=== PATIENT | male | born 1970 | race Caucasian/White ===

== ENCOUNTER 2017-10-27 02:00 | Inpatient (IN) | payer OTHER, SELFPAY ==
[2017-10-27 02:05] VITALS: BMI 29.9
[2017-10-27 02:50] VITALS: BP 129/73; PULSE 78; RESP 18; TEMP 36.4; O2SAT 98
--- NOTE | 2017-10-27 03:17 | HP.PCM_ITS ---
Problem List (1) Pancreatitis Status: Acute (2) S/P tonsillectomy and adenoidectomy Status: Acute Comment: 1970 (3) Sleep apnea Status: Acute (4) Hypertension Status: Chronic History of Present Illness Date of Admission: 10/27/17 Chief Complaint: Pancreatitis The patient is a 47 year old male w/ h/o HTN, lipidemia and JAS admitted for pancreatitis. Pt felt sore after work on . Pain has begun getting worse for the next several days. Nothing made it better or worse. Pain was in the epigastric area. Pain was sharp and occasional dull-aching. Pain would radiate to the back. Pain was severe and constant. 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 He went home and the pain showed no sign of improvement despite he trying to sleep and tried gaviscon. He was transferred to [facility] for pancreatitis. Past Medical History Past Medical History (Chronic Problems): Chronic Problems (Last Updated 09/25/17 @ 14:09 by Melody Walsh) Hypertension (Chronic) Allergies No Known Allergies Allergy (Verified 09/25/17 14:14) Home Medications: Ambulatory Orders Medication Instructions Recorded cetirizine 5 mg-pseudoephedrine ER 1 tab PO DAILY 09/25/17 120 mg tablet,extended release,12hr multivitamin tablet 1 tab PO QAM 09/25/17 potassium chloride ER 20 mEq 20 meq PO DAILY 09/25/17 tablet,extended release ascorbic acid (vitamin C) ER 1,000 1,000 mg PO DAILY 09/26/17 mg tablet,extended release cholecalciferol (vitamin D3) 2,000 2,000 unit PO DAILY 09/26/17 unit capsule fenofibrate nanocrystallized 145 145 mg PO DAILY 09/26/17 mg tablet flaxseed oil 1,000 mg capsule 1,000 mg PO BID 09/26/17 fluticasone 50 mcg/actuation nasal 1 spray INTRANASAL PRN PRN 09/26/17 spray,suspension hydrocortisone 2.5 % rectal cream % TOPICAL PRN PRN 09/26/17 with applicator lisinopril 20 mg tablet 20 mg PO DAILY 09/26/17 metoprolol succinate ER 100 mg 100 mg PO BID 09/26/17 tablet,extended release 24 hr Surgical History: adenoidectomy, tonsillectomy Psychiatric History: No pertinent psych hx Smoking Status: Former smoker Alcohol: None Drugs: None Review of Systems Constitutional: Denies: Chills, Fever, Weight Change HEENT: Denies: Head Aches, Sinus Congestion, Sinus Drainage Cardiovascular: Denies: Chest Pain, Palpitations Respiratory: Denies: Cough, Shortness of breath at rest, Sputum production Gastrointestinal: Reports: Abdominal Pain. Denies: Nausea, Vomiting Genitourinary: Denies: Dysuria Musculoskeletal: Denies: Joint Pain, Joint Tenderness Skin: Denies: Rash, Wounds Neurological: Denies: Numbness, Tingling, Focal weakness Psychiatric: Denies: Anxiety, Depression, Homicidal Ideations, Suicidal Ideations Hematologic/ Lymphatic: Denies: Easy Bruising, Easy Bleeding VTE Information - Inpt Only VTE Present on Admission: No VTE Mechan Device Prophylaxis: SCD's VTE Pharm Prophylaxis ordered?: Yes Patient Problems: Active and Suspected Problems (Last Updated 09/25/17 @ 14:09 by Melody Walsh ) Pancreatitis (Acute) - Physical Exam General: Alert, Oriented x3, Cooperative HEENT: Atraumatic, PERRLA, EOMI, Normocephalic Neck: Supple, No JVD, Negative Carotid Bruits Lungs: Clear to auscultation, Normal air movement Cardiovascular: Regular rate, No murmurs Abdomen: Bowel Sounds Present, Soft, Non Tender Extremities: No edema, Capillary Refill Less than 3 Seconds Skin: No rashes, No breakdown Musculoskeletal: No Tenderness to Palpation of Joints or Extremities Neurological: Cranial nerves II-XII grossly intact Psych/Mental Status: Normal Affect, Appropriate Vital Signs Temp Pulse Resp BP Pulse Ox 97.5 F L 78 18 129/73 H 98 10/27/17 02:50 10/27/17 02:50 10/27/17 02:50 10/27/17 02:50 10/27/17 02:50 Oxygen Delivery Method Room Air Weight: 100.3 kg Body Mass Index (BMI) 29.9 Assessment/Plan Active and Suspected Problems (Last Updated 09/25/17 @ 14:09 by Melody Walsh ) Pancreatitis (Acute) 47 year old male w/ h/o HTN, lipidemia and JAS admitted for pancreatitis. 1) Pancreatitis: CT disclosed acute pancreatitis. Lipase 4K. Will hydrate. Pain control with IV morphine. Serial lipase until trending down. Will get FLP. Will also get EtOH level. NPO. 2) Mild NITESH: Most likely azotemia. Cr 1.26 Hydration and will consider further workup if no improvement. 3) Chronic issues: Lipidemia, JAS and HTN: Resume home meds. 4) Prophylaxis: SCD / heparin
[2017-10-27] MEDS: 0.9% NaCl Peripheral Flush Adult/Peds IV (03:51)
[2017-10-27] MEDS: Ondansetron 4 MG/2 ML Vial IV (03:51)
[2017-10-27] MEDS: 0.9% Normal Saline 1,000 ML 999 ML IV (03:55)
[2017-10-27 04:09] LABS: Bacteria 0 SEEN /hpf (None Seen); Mucous, Urine 0 SEEN /hpf (<or=2+); Red Blood Cells-Urine 0 SEEN /hpf (0-5); White Blood Cells 0 SEEN /hpf (0-5)
[2017-10-27 04:12] LABS: Absolute Lymphocyte Count 1.58 X10^3/ul (0.83-4.51); Absolute Neutrophil Count 9.8 X10^3/uL (2.0-7.7); Basophil# 0.01 X10^3/uL; Basophil% 0.1 % (0-1); Eosinophil# 0.04 X10^3/uL; Eosinophils% 0.3 % (0-5); Hematocrit 41.8 % (40-54); Lymphocyte # 1.58 X10^3/ul (4.0); Lymphocyte % 13.1 % (19-41); Mean Corp Hgb Conc 33.5 g/gl (32-36); Mean Corpuscular Hgb 28.3 pg (27.0-32.0); Mean Corpuscular Volume 84.6 fL (80-94); Mean Platelet Vol. 8.9 fl (6.2-12.0); Monocyte# 0.62 X10^3/uL; Monocyte% 5.1 % (0-10); Neutrophil # 9.81 X10^3/uL (2.7-7.7); Neutrophil % 81.3 % (47-70); POSITIVE COUNT NO; POSITIVE DIFFERENTIAL NO; POSITIVE MORPHOLOGY NO; Platelet Count 267 K/mm3 (150-450); RBC Distribution Width SD 39.7 fl (35.1-43.9); Red Blood Count 4.94 M/mm3 (4.6-6.2); White Blood Count 12.1 K/mm3 (4.4-11.0)
[2017-10-27 04:15] LABS: Color, Urine Yellow (Yellow); Glucose, Dipstick Normal (Normal); Ketone-Dipstick 5 mg/dl (Negative); Leukocyte Esterase-Dipstick Negative /ul (Negative); Nitrite-Dipstick Negative (Negative); Occult Blood-Urine Negative /ul (Negative); Protein-Dipstick Negative (Negative); Urine Bilirubin Dipstick Negative (Negative); Urine Clarity Clear (Clear); Urine Urobilinogen Normal (Normal)
[2017-10-27 04:21] LABS: Squamous Epithelial Cells - UA 0-5 SEEN /hpf (0-5)
[2017-10-27 04:29] LABS: AST(SGOT) 26 U/L (15-37); Alanine Aminotransfer ALT/SGPT 43 U/L (16-61); Albumin, Serum 3.6 g/dL (3.2-5.0); Alkaline Phosphatase 100 U/L (45-117); Anion Gap 9 (5-15); BUN 13 mg/dL (7-18); BUN/Creat Ratio 10.8 RATIO (10-20); Calcium,Total 8.3 mg/dL (8.5-10.1); Chloride 103 mmol/L (98-107); Cholesterol 152 mg/dL (200); EST Glomerular Filtration Rate 69 mL/min (>60); Est Glom Filt Rate - Afr Amer 83 mL/min (>60); Estimated Creatinine Clearance 82.63 ml/min; Globulin 3.7 g/dL (2.2-4.2); Glucose 131 mg/dL (74-106); High Density Lipoprotein 36 mg/dL; Potassium 4.1 mmol/L (3.5-5.1); Protein, Total 7.3 g/dL (6.4-8.2); Sodium Level 137 mmol/L (136-145); Triglycerides 156 mg/dL; Very Low Density Lipoprotein 31 mg/dL (5-40)
[2017-10-27 04:33] LABS: Amphetamine Urine VISTA NEGATIVE (<1000 ng/mL); Barbiturate Urine VISTA NEGATIVE (< 200 ng/mL); Benzodiazepine Urine VISTA NEGATIVE (< 200 ng/mL); Cocaine Urine VISTA NEGATIVE (< 300 ng/mL); Ecstacy Urine VISTA NEGATIVE (< 500 ng/mL); Lipase 2193 U/L (73-393); Methadone Urine VISTA NEGATIVE (< 300 ng/mL); PCP Urine VISTA NEGATIVE (< 25 ng/mL); THC Urine VISTA NEGATIVE (< 50 ng/mL); Vista UDS pH Range 6
[2017-10-27] MEDS: Heparin Injection (Vial) 5,000 UNIT/ML VIAL 5000 UNIT SC ×3 (05:07→21:42)
[2017-10-27] MEDS: 0.9% Normal Saline 1,000 ML 150 ML IV ×3 (05:08→18:00)
[2017-10-27 08:31] VITALS: BP 114/70; PULSE 85; RESP 18; TEMP 36.4; O2SAT 98
--- NOTE | 2017-10-27 10:17 | CASEMGMT ---
Face to Face with patient for initial transition planning/care coordination assessment. ALDO SMITH introduced self and role at [facility], pt voices understanding and consents to assessment at this time. Pt is sitting up in bed in no distress at this time. Pt is A/O x4 at this time and answers all questions appropriately at this time. Care providers, pharmacy, and demographics verified. See attached link. Pt voices no further concerns/needs at this time. Advised pt to ask for CM if any further questions/concerns/needs arise, voices understanding. PLAN: [place] ALDO SMITH
--- NOTE | 2017-10-27 13:31 | PCM.PN.HOSP ---
Patient Problems: Active and Suspected Problems (Last Updated 09/25/17 @ 14:09 by Melody Walsh) Pancreatitis (Acute) Subjective: Epigastric abdominal pain but better. Patient does note that he has had some issues in the past regards to belly pain which she is chalked up to being reflux as he does have known reflux. But has never had no overt pancreatic attack like he is having now. Vitals/I&O's: Vital Signs Temp Pulse Resp BP Pulse Ox 36.4 C L 85 18 114/70 98 10/27/17 08:31 10/27/17 08:31 10/27/17 08:31 10/27/17 08:31 10/27/17 08:31 Oxygen Delivery Method Room Air Weight: 100.3 kg Body Mass Index (BMI) 29.9 Intake and Output for Last 24 Hours 10/25/17 10/26/17 10/27/17 23:59 23:59 23:59 Intake Total 2130 Balance 2130 General: Alert, Cooperative, No apparent distress HEENT: Atraumatic, Normocephalic Neck: No Nodes, Thyroid Normal Size and Texture Lungs: Clear to auscultation, Normal air movement, No rhonchi, No wheeze Cardiovascular: Regular rate, Regular Rhythm, Normal S1, Normal S2 Abdomen: Bowel Sounds Present, Soft, Non-Distended, No Hepato-splenomegaly, - - Epigastric tenderness. Extremities: No edema, No Calf Tenderness Skin: No rashes, No breakdown Psych/Mental Status: Normal Affect, Appropriate Laboratory Results 10/27/17 04:00: WBC 12.1 H, RBC 4.94, Hgb 14.0, Hct 41.8, MCV 84.6, MCH 28.3, MCHC 33.5, RDW 13.0, RDW Differential 39.7, Plt Count 267, MPV 8.9, Immature Gran % (Auto) 0.100, Neut % (Auto) 81.3 H, Lymph % (Auto) 13.1 L, [place] % (Auto) 5.1, Eos % (Auto) 0.3, Baso % (Auto) 0.1, Absolute Neuts (auto) 9.8 H, Absolute Lymphs (auto) 1.58, Total Counted Not Reportable 10/27/17 04:00: Sodium 137, Potassium 4.1, Chloride 103, Carbon Dioxide 25.0, Anion Gap 9, BUN 13, Creatinine 1.20, Estim Creat Clear Calc 82.63, Est GFR (MDRD) Af Amer 83, Est GFR (MDRD) Non-Af 69, BUN/Creatinine Ratio 10.8, Glucose 131 H, Calcium 8.3 L, Total Bilirubin 0.40, AST 26, ALT 43, Alkaline Phosphatase 100, Total Protein 7.3, Albumin 3.6, Globulin 3.7, Albumin/Globulin Ratio 1.0, Triglycerides 156, Cholesterol 152, LDL Cholesterol 85, VLDL Cholesterol 31, HDL Cholesterol 36 L 10/27/17 04:00: Ethyl Alcohol 4.0 10/27/17 04:00: Urine Opiates Screen POSITIVE H, Urine Methadone Screen NEGATIVE, Ur Barbiturates Screen NEGATIVE, Ur Phencyclidine Scrn NEGATIVE, Ur Amphetamines Screen NEGATIVE, U Methamphetamin-MDMA NEGATIVE, U Benzodiazepines Scrn NEGATIVE, Urine Cocaine Screen NEGATIVE, U Cannabinoids Screen NEGATIVE, Ur Drug Screen Comment 10/27/17 04:00: Lipase 2193 H 10/27/17 04:00: Urine Color Yellow, Urine Clarity Clear, Urine pH 6.0, Ur Specific [place] 1.010, Urine Protein Negative, Urine Glucose (UA) Normal, Urine Ketones 5 H, Urine Occult Blood Negative, Urine Nitrite Negative, Urine Bilirubin Negative, Urine Urobilinogen Normal, Ur Leukocyte Esterase Negative, Urine RBC 0 SEEN, Urine WBC 0 SEEN, Ur Squamous Epith Cells 0-5 SEEN, Urine Bacteria 0 SEEN, Urine Mucus 0 SEEN Current Medications Heparin Sodium (Porcine) (Heparin Na) 5,000 unit SC Q8 [facility] Last Admin: 10/27/17 05:07 Dose: 5,000 u Sodium Chloride () 1,000 mls @ 150 mls/hr IV .Q6H40M [facility] Last Admin: 10/27/17 11:17 Dose: 150 mls/hr Magnesium Hydroxide (Milk Of Magnesia) 30 ml PO DAILY PRN PRN PRN Reason: Constipation Morphine Sulfate () 4 mg IV Q4H PRN PRN PRN Reason: SEVERE PAIN (6-10/10) Ondansetron HCl (Zofran) 4 mg IV Q6H PRN PRN PRN Reason: NAUSEA Last Admin: 10/27/17 03:51 Dose: 4 mg Sodium Chloride () 5 - 30 ml IV UD PRN PRN Reason: SALINE FLUSH Last Admin: 10/27/17 03:51 Dose: 20 ml Medical Necessity - Tobacco Use Smoking Status: Former smoker Assessment/Plan Active and Suspected Problems (Last Updated 09/25/17 @ 14:09 by Melody Walsh) Pancreatitis (Acute) 1. Acute pancreatitis Unclear etiology and most unclear if this is his first episode or not but certainly his worst. Patient has had some abdominal pain previously that may very well been there with reflux or dyspepsia Patient had an ultrasound in May that showed fatty liver. Alcohol level negative and patient denies alcohol use. Continue with IV fluids and pain control Advance diet to clears for now. 2. DVT prophylaxis with subcu heparin. Code Visit Procedures: Other Procedure - See Report - Non billable rounding. Please bill Dr. Mcmillan for 223 for his H+P.
--- NOTE | 2017-10-27 13:37 | PN_ITS ---
Patient Problems: Active and Suspected Problems (Last Updated 09/25/17 @ 14:09 by Melody Walsh ) Pancreatitis (Acute) Subjective: Epigastric abdominal pain but better. Patient does note that he has had some issues in the past regards to belly pain which she is chalked up to being reflux as he does have known reflux. But has never had no overt pancreatic attack like he is having now. Vitals/I&O's: Vital Signs Temp Pulse Resp BP Pulse Ox 36.4 C L 85 18 114/70 98 10/27/17 08:31 10/27/17 08:31 10/27/17 08:31 10/27/17 08:31 10/27/17 08:31 Oxygen Delivery Method Room Air Weight: 100.3 kg Body Mass Index (BMI) 29.9 Intake and Output for Last 24 Hours 10/25/17 10/26/17 10/27/17 23:59 23:59 23:59 Intake Total 2130 Balance 2130 General: Alert, Cooperative, No apparent distress HEENT: Atraumatic, Normocephalic Neck: No Nodes, Thyroid Normal Size and Texture Lungs: Clear to auscultation, Normal air movement, No rhonchi, No wheeze Cardiovascular: Regular rate, Regular Rhythm, Normal S1, Normal S2 Abdomen: Bowel Sounds Present, Soft, Non-Distended, No Hepato-splenomegaly, - - Epigastric tenderness. Extremities: No edema, No Calf Tenderness Skin: No rashes, No breakdown Psych/Mental Status: Normal Affect, Appropriate Laboratory Results 10/27/17 04:00: WBC 12.1 H, RBC 4.94, Hgb 14.0, Hct 41.8, MCV 84.6, MCH 28.3, MCHC 33.5, RDW 13.0, RDW Differential 39.7, Plt Count 267, MPV 8.9, Immature Gran % (Auto) 0.100, Neut % (Auto) 81.3 H, Lymph % (Auto) 13.1 L, [place] % (Auto) 5.1, Eos % (Auto) 0.3, Baso % (Auto) 0.1, Absolute Neuts (auto) 9.8 H, Absolute Lymphs (auto) 1.58, Total Counted Not Reportable 10/27/17 04:00: Sodium 137, Potassium 4.1, Chloride 103, Carbon Dioxide 25.0, Anion Gap 9, BUN 13, Creatinine 1.20, Estim Creat Clear Calc 82.63, Est GFR ( MDRD) Af Amer 83, Est GFR (MDRD) Non-Af 69, BUN/Creatinine Ratio 10.8, Glucose 131 H, Calcium 8.3 L, Total Bilirubin 0.40, AST 26, ALT 43, Alkaline Phosphatase 100, Total Protein 7.3, Albumin 3.6, Globulin 3.7, Albumin/Globulin Ratio 1.0, Triglycerides 156, Cholesterol 152, LDL Cholesterol 85, VLDL Cholesterol 31, HDL Cholesterol 36 L 10/27/17 04:00: Ethyl Alcohol 4.0 10/27/17 04:00: Urine Opiates Screen POSITIVE H, Urine Methadone Screen NEGATIVE , Ur Barbiturates Screen NEGATIVE, Ur Phencyclidine Scrn NEGATIVE, Ur Amphetamines Screen NEGATIVE, U Methamphetamin-MDMA NEGATIVE, U Benzodiazepines Scrn NEGATIVE, Urine Cocaine Screen NEGATIVE, U Cannabinoids Screen NEGATIVE, Ur Drug Screen Comment 10/27/17 04:00: Lipase 2193 H 10/27/17 04:00: Urine Color Yellow, Urine Clarity Clear, Urine pH 6.0, Ur Specific [place] 1.010, Urine Protein Negative, Urine Glucose (UA) Normal, Urine Ketones 5 H, Urine Occult Blood Negative, Urine Nitrite Negative, Urine Bilirubin Negative, Urine Urobilinogen Normal, Ur Leukocyte Esterase Negative, Urine RBC 0 SEEN, Urine WBC 0 SEEN, Ur Squamous Epith Cells 0-5 SEEN, Urine Bacteria 0 SEEN, Urine Mucus 0 SEEN Current Medications Heparin Sodium (Porcine) (Heparin Na) 5,000 unit SC Q8 [facility] Last Admin: 10/27/17 05:07 Dose: 5,000 u Sodium Chloride () 1,000 mls @ 150 mls/hr IV .Q6H40M [facility] Last Admin: 10/27/17 11:17 Dose: 150 mls/hr Magnesium Hydroxide (Milk Of Magnesia) 30 ml PO DAILY PRN PRN PRN Reason: Constipation Morphine Sulfate () 4 mg IV Q4H PRN PRN PRN Reason: SEVERE PAIN (6-10/10) Ondansetron HCl (Zofran) 4 mg IV Q6H PRN PRN PRN Reason: NAUSEA Last Admin: 10/27/17 03:51 Dose: 4 mg Sodium Chloride () 5 - 30 ml IV UD PRN PRN Reason: SALINE FLUSH Last Admin: 10/27/17 03:51 Dose: 20 ml Medical Necessity - Tobacco Use Smoking Status: Former smoker Assessment/Plan Active and Suspected Problems (Last Updated 09/25/17 @ 14:09 by Melody Walsh ) Pancreatitis (Acute) 1. Acute pancreatitis * Unclear etiology and most unclear if this is his first episode or not but certainly his worst. Patient has had some abdominal pain previously that may very well been there with reflux or dyspepsia * Patient had an ultrasound in May that showed fatty liver. * Alcohol level negative and patient denies alcohol use. * Continue with IV fluids and pain control * Advance diet to clears for now. 2. DVT prophylaxis with subcu heparin. Code Visit Procedures: Other Procedure - See Report - Non billable rounding. Please bill Dr. Mcmillan for 223 for his H+P.
[2017-10-27 14:33] VITALS: BP 122/77; PULSE 93; RESP 18; TEMP 36.8; O2SAT 99
[2017-10-27 21:40] VITALS: BP 123/65; PULSE 82; RESP 18; TEMP 36.6; O2SAT 97
[2017-10-28] MEDS: 0.9% Normal Saline 1,000 ML 150 ML IV ×4 (01:02→20:47)
[2017-10-28 04:00] VITALS: BP 130/73; RESP 18; TEMP 37.1; O2SAT 97
[2017-10-28] MEDS: Heparin Injection (Vial) 5,000 UNIT/ML VIAL 5000 UNIT SC ×2 (05:55→14:59)
[2017-10-28 06:23] LABS: Absolute Lymphocyte Count 2.88 X10^3/ul (0.83-4.51); Absolute Neutrophil Count 2.9 X10^3/uL (2.0-7.7); Basophil# 0.04 X10^3/uL; Basophil% 0.6 % (0-1); Eosinophil# 0.22 X10^3/uL; Eosinophils% 3.3 % (0-5); Hematocrit 39.8 % (40-54); Hemoglobin 13.2 g/dl (13.0-16.5); Lymphocyte # 2.88 X10^3/ul (4.0); Lymphocyte % 43.2 % (19-41); Mean Corp Hgb Conc 33.2 g/gl (32-36); Mean Corpuscular Hgb 28.3 pg (27.0-32.0); Mean Corpuscular Volume 85.2 fL (80-94); Monocyte# 0.58 X10^3/uL; Monocyte% 8.7 % (0-10); Neutrophil # 2.94 X10^3/uL (2.7-7.7); Neutrophil % 44.2 % (47-70); Platelet Count 261 K/mm3 (150-450); RBC Distribution Width CV 13.1 % (11.6-14.6); RBC Distribution Width SD 40.3 fl (35.1-43.9); Red Blood Count 4.67 M/mm3 (4.6-6.2); White Blood Count 6.7 K/mm3 (4.4-11.0)
[2017-10-28 06:26] LABS: POSITIVE COUNT NO; POSITIVE DIFFERENTIAL NO; POSITIVE MORPHOLOGY NO
[2017-10-28 06:48] LABS: Anion Gap 9 (5-15); BUN 10 mg/dL (7-18); Calcium,Total 8.6 mg/dL (8.5-10.1); Chloride 108 mmol/L (98-107); Creatinine, Serum 1.11 mg/dL (0.70-1.30); EST Glomerular Filtration Rate 75 mL/min (>60); Est Glom Filt Rate - Afr Amer 91 mL/min (>60); Estimated Creatinine Clearance 89.33 ml/min; Glucose 87 mg/dL (74-106); Lipase 2070 U/L (73-393); Sodium Level 140 mmol/L (136-145)
[2017-10-28 10:00] VITALS: BP 125/64; PULSE 81; RESP 18; TEMP 36.9; O2SAT 98
--- NOTE | 2017-10-28 10:35 | PN_ITS ---
Patient Problems: Active and Suspected Problems (Last Updated 09/25/17 @ 14:09 by Melody Walsh ) Pancreatitis (Acute) Subjective: States that he is doing better but just concerned after talking with some family. Patient mentions now that his maternal grandmother had from pancreatic cancer. He was taken to a friend who is an tissue recovery technician who made mention of an ERCP, to which I did mention to him yesterday as possibility. It has been tolerating the clear liquid diet well so far. Vitals/I&O's: Vital Signs Temp Pulse Resp BP Pulse Ox 37.1 C 82 18 130/73 H 97 10/28/17 04:00 10/27/17 21:40 10/28/17 04:00 10/28/17 04:00 10/28/17 04:00 Oxygen Delivery Method Room Air Weight: 100.3 kg Body Mass Index (BMI) 29.9 Intake and Output for Last 24 Hours 10/26/17 10/27/17 10/28/17 23:59 23:59 23:59 Intake Total 3877 / 3877 2627 / 2627 Balance 3877 / 3877 2627 / 2627 General: Alert, Cooperative, No apparent distress HEENT: Atraumatic, Normocephalic Neck: No Nodes, Thyroid Normal Size and Texture Lungs: Clear to auscultation, Normal air movement, No rhonchi, No wheeze Cardiovascular: Regular rate, Regular Rhythm, Normal S1, Normal S2, No murmurs Abdomen: Bowel Sounds Present, Soft, Non-Distended, No Hepato-splenomegaly, - - Epigastric tenderness Extremities: No edema, No Calf Tenderness Psych/Mental Status: Normal Affect, Appropriate Laboratory Results 10/28/17 05:45: WBC 6.7, RBC 4.67, Hgb 13.2, Hct 39.8 L, MCV 85.2, MCH 28.3, MCHC 33.2, RDW 13.1, RDW Differential 40.3, Plt Count 261, MPV 9.0, Immature Gran % (Auto) 0.000, Neut % (Auto) 44.2 L, Lymph % (Auto) 43.2 H, [place] % (Auto) 8.7, Eos % (Auto) 3.3, Baso % (Auto) 0.6, Absolute Neuts (auto) 2.9, Absolute Lymphs (auto) 2.88, Total Counted Not Reportable 10/28/17 05:45: Sodium 140, Potassium 4.0, Chloride 108 H, Carbon Dioxide 23.0, Anion Gap 9, BUN 10, Creatinine 1.11, Estim Creat Clear Calc 89.33, Est GFR ( MDRD) Af Amer 91, Est GFR (MDRD) Non-Af 75, BUN/Creatinine Ratio 9.0 L, Glucose 87, Calcium 8.6, Lipase 2070 H Current Medications Heparin Sodium (Porcine) (Heparin Na) 5,000 unit SC Q8 [facility] Last Admin: 10/28/17 05:55 Dose: 5,000 u Sodium Chloride () 1,000 mls @ 150 mls/hr IV .Q6H40M [facility] Last Admin: 10/28/17 07:13 Dose: 150 mls/hr Magnesium Hydroxide (Milk Of Magnesia) 30 ml PO DAILY PRN PRN PRN Reason: Constipation Morphine Sulfate () 4 mg IV Q4H PRN PRN PRN Reason: SEVERE PAIN (6-10/10) Ondansetron HCl (Zofran) 4 mg IV Q6H PRN PRN PRN Reason: NAUSEA Last Admin: 10/27/17 03:51 Dose: 4 mg Sodium Chloride () 5 - 30 ml IV UD PRN PRN Reason: SALINE FLUSH Last Admin: 10/27/17 03:51 Dose: 20 ml Medical Necessity - Tobacco Use Smoking Status: Former smoker Assessment/Plan Active and Suspected Problems (Last Updated 09/25/17 @ 14:09 by Melody Walsh ) Pancreatitis (Acute) 1. Acute pancreatitis * Unclear etiology and most unclear if this is his first episode or not but certainly his worst. Patient has had some abdominal pain previously that may very well been there with reflux or dyspepsia * Patient had an ultrasound in May that showed fatty liver. * Alcohol level negative and patient denies alcohol use. * Continue with IV fluids and pain control * Advance diet to full for now. * Check an ultrasound and an MRCP told patient there is no clear indication for an ERCP at this time but will wait on the studies and make a determination if that may be necessary. 2. DVT prophylaxis with subcu heparin. Code Visit Inpatient E&M: 26446 Subs Hosp L2
[2017-10-28 15:24] VITALS: BP 127/63; PULSE 74; RESP 18; TEMP 36.6; O2SAT 98
[2017-10-28 21:32] VITALS: BP 134/86; PULSE 94; RESP 18; TEMP 36.5; O2SAT 95
[2017-10-29 02:00] VITALS: BP 115/69; PULSE 80; RESP 16; TEMP 36.7; O2SAT 97
[2017-10-29] MEDS: 0.9% Normal Saline 1,000 ML 150 ML IV (03:00)
[2017-10-29 06:23] LABS: Anion Gap 9 (5-15); BUN 10 mg/dL (7-18); BUN/Creat Ratio 9.3 RATIO (10-20); Calcium,Total 8.5 mg/dL (8.5-10.1); Chloride 111 mmol/L (98-107); Creatinine, Serum 1.07 mg/dL (0.70-1.30); EST Glomerular Filtration Rate 78 mL/min (>60); Est Glom Filt Rate - Afr Amer 95 mL/min (>60); Estimated Creatinine Clearance 92.67 ml/min; Glucose 82 mg/dL (74-106); Lipase 2173 U/L (73-393); Potassium 3.8 mmol/L (3.5-5.1); Sodium Level 142 mmol/L (136-145)
[2017-10-29 07:40] VITALS: BP 113/75; PULSE 100; RESP 18; TEMP 36.7; O2SAT 96
--- NOTE | 2017-10-29 09:50 | PCM.PN.HOSP ---
Patient Problems: Active and Suspected Problems (Last Updated 09/25/17 @ 14:09 by Melody Walsh) Pancreatitis (Acute) Subjective: Patient with no acute events overnight per self and per nursing report. Patient notes since initial presentation has had no further market epigastric discomfort but does admit that he has had chronic mild dull ache in the right upper quadrant it has been ongoing. He states that he did tolerate clears and eventual. Transition. Patient is currently n.p.o. for imaging studies. Discussed plan of care which will include pending imaging studies possible discharge to home with follow-up with his GI physician for EGD if recurrence versus surgery consult if unremarkable gallbladder findings. Patient denies fevers, chills, nausea, emesis, abdominal pain, chest pain or dyspnea. Objective: Physical Examination: General: awake, alert, oriented x 3 and cooperative, seated upright in bed in no apparent distress. Skin: normal color, turgor, no icterus, cyanosis. HEENT: AT/NC, EOMI, PERRLA, MMM. Lungs: CTA bilaterally, moderate effort, mild decrease BL bases, no rales, ronchi or wheezing. Heart: regular rate and rhythm; no gallop, rub audible. Abdomen: soft, minimal RUQ discomfort w/ deep palpation, no rebound or guarding, normal BS. Extremities: no cyanosis, clubbing, or edema. Neurological: patient awake, alert, oriented x 3; cognitive function intact; pupils equally reactive to light and accomodation; cranial nerves II-XII grossly normal, moving all 4 extremities, no focal deficits, strength preserved. Psychiatric: affect appears normal, no acute evidence of depressive or anxiety feelings. Vitals/I&O's: Vital Signs Temp Pulse Resp BP Pulse Ox 98.1 F 100 18 113/75 96 10/29/17 07:40 10/29/17 07:40 10/29/17 07:40 10/29/17 07:40 10/29/17 07:40 Oxygen Delivery Method Room Air Weight: 221 lb 1.978 oz Body Mass Index (BMI) 29.9 Intake and Output for Last 24 Hours 10/27/17 10/28/17 10/29/17 23:59 23:59 23:59 Intake Total 3877 / 3877 5447 / 5447 1716 / 1716 Balance 3877 / 3877 5447 / 5447 1716 / 1716 Laboratory Results 10/29/17 05:28: Sodium 142, Potassium 3.8, Chloride 111 H, Carbon Dioxide 22.0, Anion Gap 9, BUN 10, Creatinine 1.07, Estim Creat Clear Calc 92.67, Est GFR (MDRD) Af Amer 95, Est GFR (MDRD) Non-Af 78, BUN/Creatinine Ratio 9.3 L, Glucose 82, Calcium 8.5, Lipase 2173 H Current Medications Heparin Sodium (Porcine) (Heparin Na) 5,000 unit SC Q8 [facility] Last Admin: 10/29/17 05:41 Dose: Not Given Sodium Chloride () 1,000 mls @ 150 mls/hr IV .Q6H40M [facility] Last Admin: 10/29/17 03:00 Dose: 150 mls/hr Magnesium Hydroxide (Milk Of Magnesia) 30 ml PO DAILY PRN PRN PRN Reason: Constipation Morphine Sulfate () 4 mg IV Q4H PRN PRN PRN Reason: SEVERE PAIN (6-10/10) Ondansetron HCl (Zofran) 4 mg IV Q6H PRN PRN PRN Reason: NAUSEA Last Admin: 10/27/17 03:51 Dose: 4 mg Sodium Chloride () 5 - 30 ml IV UD PRN PRN Reason: SALINE FLUSH Last Admin: 10/27/17 03:51 Dose: 20 ml Medical Necessity - Tobacco Use Smoking Status: Former smoker Tobacco Use: Non-smoker Assessment/Plan Active and Suspected Problems (Last Updated 09/25/17 @ 14:09 by Melody Walsh) Pancreatitis (Acute) The patient is a 47 y/o M w/ PMHx: Obesity, HTN, JAS, HLD who presents to the [facility] ED on 10/27/17 with history of onset epigastric discomfort starting which progressively worsened noted to be sharp and occasionally dull in nature with radiation to the back. (1) Acute pancreatitis w/ abdominal pain, N/V: Admission CBC w/ WBC 12.1 with L shift, improved, CMP unremarkable, Lipase 2193-->trending 2069-->10/29/17 2173. Will maintain on IVFs, NPO pending GBUS but prior had successfully been transitioned to FULLS, PPI, IV/po pain control, trend lipase, CMP. Pending GB US, MRCP, FLP not marked appearing and EtOH level negative and patient denies consumption risk as etiology for pancreatitis. If remarkable GB findings will obtain Surgery consultation, if unremarkable will restart diet and plan discharge to home with GI Dr. Campos follow-up outpatient to consider EGD for alternate etiology for pancreatitis. (2) Acute kidney injury, RULED OUT: Admission BUN/Cr 13/1.20, baseline noted 1.0-1.2, stable, 10/29/17 BUN/Cr 10/1.07, trend. (3) Hypertension: Continue home regimen including lisinopril, metoprolol, PRN hydralazine. (4) Obesity: Weight loss and lifestyle changes encouraged. (5) Hyperlipidemia: Holding fenofibrate, restart upon discharge, FLP not marked appearing. (6) DVT Prophylaxis: SCDs, heparin. Code Visit Inpatient E&M: 73005 Subs Hosp L2
--- NOTE | 2017-10-29 09:59 | PN_ITS ---
Patient Problems: Active and Suspected Problems (Last Updated 09/25/17 @ 14:09 by Melody Walsh ) Pancreatitis (Acute) Subjective: Patient with no acute events overnight per self and per nursing report. Patient notes since initial presentation has had no further market epigastric discomfort but does admit that he has had chronic mild dull ache in the right upper quadrant it has been ongoing. He states that he did tolerate clears and eventual. Transition. Patient is currently n.p.o. for imaging studies. Discussed plan of care which will include pending imaging studies possible discharge to home with follow-up with his GI physician for EGD if recurrence versus surgery consult if unremarkable gallbladder findings. Patient denies fevers, chills, nausea, emesis, abdominal pain, chest pain or dyspnea. Objective: Physical Examination: General: awake, alert, oriented x 3 and cooperative, seated upright in bed in no apparent distress. Skin: normal color, turgor, no icterus, cyanosis. HEENT: AT/NC, EOMI, PERRLA, MMM. Lungs: CTA bilaterally, moderate effort, mild decrease BL bases, no rales, ronchi or wheezing. Heart: regular rate and rhythm; no gallop, rub audible. Abdomen: soft, minimal RUQ discomfort w/ deep palpation, no rebound or guarding , normal BS. Extremities: no cyanosis, clubbing, or edema. Neurological: patient awake, alert, oriented x 3; cognitive function intact; pupils equally reactive to light and accomodation; cranial nerves II-XII grossly normal, moving all 4 extremities, no focal deficits, strength preserved. Psychiatric: affect appears normal, no acute evidence of depressive or anxiety feelings. Vitals/I&O's: Vital Signs Temp Pulse Resp BP Pulse Ox 98.1 F 100 18 113/75 96 10/29/17 07:40 10/29/17 07:40 10/29/17 07:40 10/29/17 07:40 10/29/17 07:40 Oxygen Delivery Method Room Air Weight: 221 lb 1.978 oz Body Mass Index (BMI) 29.9 Intake and Output for Last 24 Hours 10/27/17 10/28/17 10/29/17 23:59 23:59 23:59 Intake Total 3877 / 3877 5447 / 5447 1716 / 1716 Balance 3877 / 3877 5447 / 5447 1716 / 1716 Laboratory Results 10/29/17 05:28: Sodium 142, Potassium 3.8, Chloride 111 H, Carbon Dioxide 22.0, Anion Gap 9, BUN 10, Creatinine 1.07, Estim Creat Clear Calc 92.67, Est GFR ( MDRD) Af Amer 95, Est GFR (MDRD) Non-Af 78, BUN/Creatinine Ratio 9.3 L, Glucose 82, Calcium 8.5, Lipase 2173 H Current Medications Heparin Sodium (Porcine) (Heparin Na) 5,000 unit SC Q8 [facility] Last Admin: 10/29/17 05:41 Dose: Not Given Sodium Chloride () 1,000 mls @ 150 mls/hr IV .Q6H40M [facility] Last Admin: 10/29/17 03:00 Dose: 150 mls/hr Magnesium Hydroxide (Milk Of Magnesia) 30 ml PO DAILY PRN PRN PRN Reason: Constipation Morphine Sulfate () 4 mg IV Q4H PRN PRN PRN Reason: SEVERE PAIN (6-10/10) Ondansetron HCl (Zofran) 4 mg IV Q6H PRN PRN PRN Reason: NAUSEA Last Admin: 10/27/17 03:51 Dose: 4 mg Sodium Chloride () 5 - 30 ml IV UD PRN PRN Reason: SALINE FLUSH Last Admin: 10/27/17 03:51 Dose: 20 ml Medical Necessity - Tobacco Use Smoking Status: Former smoker Tobacco Use: Non-smoker Assessment/Plan Active and Suspected Problems (Last Updated 09/25/17 @ 14:09 by Melody Walsh ) Pancreatitis (Acute) The patient is a 47 y/o M w/ PMHx: Obesity, HTN, JAS, HLD who presents to the [facility] ED on 10/27/17 with history of onset epigastric discomfort starting which progressively worsened noted to be sharp and occasionally dull in nature with radiation to the back. (1) Acute pancreatitis w/ abdominal pain, N/V: Admission CBC w/ WBC 12.1 with L shift, improved, CMP unremarkable, Lipase 2193-->trending 2069-->10/29/17 2173. Will maintain on IVFs, NPO pending GBUS but prior had successfully been transitioned to FULLS, PPI, IV/po pain control, trend lipase, CMP. Pending GB US , MRCP, FLP not marked appearing and EtOH level negative and patient denies consumption risk as etiology for pancreatitis. If remarkable GB findings will obtain Surgery consultation, if unremarkable will restart diet and plan discharge to home with GI Dr. Campos follow-up outpatient to consider EGD for alternate etiology for pancreatitis. (2) Acute kidney injury, RULED OUT: Admission BUN/Cr 13/1.20, baseline noted 1.0 -1.2, stable, 10/29/17 BUN/Cr 10/1.07, trend. (3) Hypertension: Continue home regimen including lisinopril, metoprolol, PRN hydralazine. (4) Obesity: Weight loss and lifestyle changes encouraged. (5) Hyperlipidemia: Holding fenofibrate, restart upon discharge, FLP not marked appearing. (6) DVT Prophylaxis: SCDs, heparin. Code Visit Inpatient E&M: 39330 Subs Hosp L2
--- NOTE | 2017-10-29 10:07 | MRI_ITS ---
STUDY: MRI ABDOMEN WITHOUT CONTRAST REASON FOR EXAM: Male, 47 years old. Right upper quadrant pain. Epigastric pain. Pancreatitis. TECHNIQUE: Standardized fat and water weighted pulse sequences were obtained in all 3 orthogonal planes. MRCP sequences performed COMPARISON: Ultrasound October 29, 2017. FINDINGS: The visualized lung bases are unremarkable. The visualized portions of the heart are within normal limits. There is hepatomegaly with diffuse hepatic enlargement. Normal gallbladder and extrahepatic biliary system. Normal spleen. There is diffuse enlargement of the pancreas with jh-pancreatic edema suggesting acute pancreatitis. There is no fluid collection or pseudocyst. Normal bilateral adrenal glands. Normal right kidney. Normal left kidney. Normal visualized stomach. Normal small intestine. Normal colon. There is non-visualization of the appendix. Normal abdominal aorta. Normal inferior vena cava. Normal retroperitoneum. Normal abdominal wall. Normal osseous structures. MRI/MRCP Abdomen without Contrast IMPRESSION: Acute pancreatitis. No fluid collection or pseudocyst. No gallstones or biliary dilatation. Electronically Signed: Too Simmons MD at 13:35 EDT , Service support ,
[2017-10-29] MEDS: Famotidine 20 MG Tablet PO (10:32)
[2017-10-29 10:37] VITALS: BP 108/72; PULSE 82; RESP 18; TEMP 37; O2SAT 97
--- NOTE | 2017-10-29 11:30 | NURSING ---
verbal report given to Annemarie CARLSON
--- NOTE | 2017-10-29 13:46 | PCM.DC ---
- Discharge Diagnoses Current Active Problems: Current Active and Chronic Problems (Last Updated 09/25/17 @ 14:09 by Melody Walsh) Pancreatitis (Acute), Unclear specific etiology (unremarkable gallbladder, unremarkable lipid panel, no EtOH Abuse history) Acute Kidney Injury RULED OUT HTN Obesity HLD You will use the following diet at home:: Cardiac - Continue FULL liquids and transition to cardiac diet over the last 1-2 days. Your food should be the consistency of: Regular Your liquids should be the consistency of: Regular/Thin Call your doctor if you observe: Fever of 101 or Higher, Inability to urinate, Inability to have a bowel movement, Shortness of breath, Dizziness, Fainting spells, Chest pain, Uncontrolled pain Instructions: Understanding Pancreatitis, Discharge Instructions for Acute Pancreatitis, Lipase Additional Instructions: During admission your cholesterol was obtained and not marked appearing, the gallbladder does not appear to be an acute etiology for your current acute pancreatitis. Please follow-up with Dr. Campos as discussed to consider EGD. Allergies/Adverse Reactions: Allergies No Known Allergies Allergy (Verified 09/25/17 14:14) Medications to take at Discharge cetirizine 5 mg-pseudoephedrine ER 120 mg tablet,extended release,12hr 1 tab PO DAILY 09/25/17 multivitamin tablet 1 tab PO QAM 09/25/17 potassium chloride ER 20 mEq tablet,extended release 20 meq PO DAILY 09/25/17 ascorbic acid (vitamin C) ER 1,000 mg tablet,extended release 1,000 mg PO DAILY 09/26/17 cholecalciferol (vitamin D3) 2,000 unit capsule 2,000 unit PO DAILY 09/26/17 fenofibrate nanocrystallized 145 mg tablet 145 mg PO DAILY 09/26/17 flaxseed oil 1,000 mg capsule 1,000 mg PO BID 09/26/17 fluticasone 50 mcg/actuation nasal spray,suspension 1 spray INTRANASAL PRN PRN 09/26/17 hydrocortisone 2.5 % rectal cream with applicator % TOPICAL PRN PRN 09/26/17 lisinopril 20 mg tablet 20 mg PO DAILY 09/26/17 metoprolol succinate ER 100 mg tablet,extended release 24 hr 100 mg PO BID 09/26/17 Famotidine [Pepcid] 20 mg PO BID #60 tab 10/29/17 The following prescriptions were given: Famotidine [Pepcid] 20 mg PO BID #60 tab Primary Care Physician: Scooter Romero MD [Primary Care Provider] - Please follow up with your Primary Care Physician in: Follow-up within 3-5 days. Please Follow Up With: Allen Campos When: Please follow-up to review acute pancreatitis admit, consider EGD. Proposed Discharge Date: 10/29/17
--- NOTE | 2017-10-29 13:53 | PCM.DC.SUM ---
Discharge Date and Diagnosis - Problem List Patient Problems: Active and Suspected Problems (Last Updated 09/25/17 @ 14:09 by Melody Walsh) Pancreatitis (Acute) Date of Admission: 10/27/17 Date of Discharge: 10/29/17 - Primary Discharge Diagnosis Active and Suspected Problems (Last Updated 09/25/17 @ 14:09 by Melody Walsh) (1) Acute pancreatitis w/ abdominal pain, N/V (2) Acute kidney injury, RULED OUT (3) Hypertension (4) Obesity (5) Hyperlipidemia - Secondary Discharge Diagnosis Chronic Problems (Last Updated 09/25/17 @ 14:09 by Melody Walsh) Hypertension (Chronic) Hospital Course and Treatment Imaging Results: 10/29/17 09:33 Abdomen Limited [US] Urgent 10/29/17 10:07 MRCP Abdomen without Contrast [MRI] Urgent Operations: None Procedures: EKG, - - GB US, MRCP Summary of Care Provided: The patient is a 47 y/o M w/ PMHx: Obesity, HTN, JAS, HLD who presented to the [facility] ED on 10/27/17 with history of onset epigastric discomfort starting which progressively worsened noted to be sharp and occasionally dull in nature with radiation to the back. Admission CBC w/ WBC 12.1 with L shift, improved, CMP unremarkable, Lipase 2193-->trending 2070-->10/29/17 2173. Admitted to [place], maintained on IVFs, tolerated diet transition to fulls, GBUS/MRCP w/ evidence acute pancreatitis but otherwise no acute findings. FLP not marked appearing and EtOH level negative and patient denied consumption risk as etiology for pancreatitis. Given MRCP with acute pancreatitis findings and no marked GB findings patient discharged to home w/ planned follow-up with GI Dr. Campos as outpatient to consider EGD for alternate etiology for pancreatitis. Patient discharged to home in stable improved condition with additionally PCP follow-up. Discharge Diet: Low fat/ Low Cholesterol Discharge Activity: Return to Normal Activity May resume sexual activity in: No Restrictions Weight Bearing Status: Weight bearing as tolerated Call your doctor if you observe: Fever of 101 or Higher, Inability to urinate, Inability to have a bowel movement, Shortness of breath, Dizziness, Fainting spells, Chest pain, Uncontrolled pain Home Medications: Medications to take at Discharge cetirizine 5 mg-pseudoephedrine ER 120 mg tablet,extended release,12hr 1 tab PO DAILY 09/25/17 multivitamin tablet 1 tab PO QAM 09/25/17 potassium chloride ER 20 mEq tablet,extended release 20 meq PO DAILY 09/25/17 ascorbic acid (vitamin C) ER 1,000 mg tablet,extended release 1,000 mg PO DAILY 09/26/17 cholecalciferol (vitamin D3) 2,000 unit capsule 2,000 unit PO DAILY 09/26/17 fenofibrate nanocrystallized 145 mg tablet 145 mg PO DAILY 09/26/17 flaxseed oil 1,000 mg capsule 1,000 mg PO BID 09/26/17 fluticasone 50 mcg/actuation nasal spray,suspension 1 spray INTRANASAL PRN PRN 09/26/17 hydrocortisone 2.5 % rectal cream with applicator % TOPICAL PRN PRN 09/26/17 lisinopril 20 mg tablet 20 mg PO DAILY 09/26/17 metoprolol succinate ER 100 mg tablet,extended release 24 hr 100 mg PO BID 09/26/17 Famotidine [Pepcid] 20 mg PO BID #60 tab 10/29/17 Following Prescrptions Were Given to Patient: Famotidine [Pepcid] 20 mg PO BID #60 tab Primary Care Physician: Scooter Romero MD [Primary Care Provider] - Please follow up with your Primary Care Physician in: Follow-up within 3-5 days. Please Follow Up With: Allen Campos When: Please follow-up to review acute pancreatitis admit, consider EGD. Patient Instructions: Lipase, Understanding Pancreatitis, Discharge Instructions for Acute Pancreatitis Disposition: Home Minutes spent on discharge:: 35 Patient Condition:: Fair Medical Necessity - Tobacco Use Smoking Status: Former smoker Tobacco Use: Non-smoker Meaningful Use Info Meaningful Use Diagnoses (Choose all that apply): None applicable Code Visit Inpatient E&M: 00007 Disch Hosp
--- NOTE | 2017-10-29 13:59 | DS.PCM_ITS ---
Discharge Date and Diagnosis - Problem List Patient Problems: Active and Suspected Problems (Last Updated 09/25/17 @ 14:09 by Melody Walsh ) Pancreatitis (Acute) Date of Admission: 10/27/17 Date of Discharge: 10/29/17 - Primary Discharge Diagnosis Active and Suspected Problems (Last Updated 09/25/17 @ 14:09 by Melody Walsh ) (1) Acute pancreatitis w/ abdominal pain, N/V (2) Acute kidney injury, RULED OUT (3) Hypertension (4) Obesity (5) Hyperlipidemia - Secondary Discharge Diagnosis Chronic Problems (Last Updated 09/25/17 @ 14:09 by Melody Walsh) Hypertension (Chronic) Hospital Course and Treatment Imaging Results: 10/29/17 09:33 Abdomen Limited [US] Urgent 10/29/17 10:07 MRCP Abdomen without Contrast [MRI] Urgent Operations: None Procedures: EKG, - - GB US, MRCP Summary of Care Provided: The patient is a 47 y/o M w/ PMHx: Obesity, HTN, JAS, HLD who presented to the [facility] ED on 10/27/17 with history of onset epigastric discomfort starting which progressively worsened noted to be sharp and occasionally dull in nature with radiation to the back. Admission CBC w/ WBC 12.1 with L shift, improved, CMP unremarkable, Lipase 2193-->trending 2070-->10/29/17 2173. Admitted to [place], maintained on IVFs, tolerated diet transition to fulls, GBUS/MRCP w/ evidence acute pancreatitis but otherwise no acute findings. FLP not marked appearing and EtOH level negative and patient denied consumption risk as etiology for pancreatitis. Given MRCP with acute pancreatitis findings and no marked GB findings patient discharged to home w/ planned follow-up with GI Dr. Campos as outpatient to consider EGD for alternate etiology for pancreatitis. Patient discharged to home in stable improved condition with additionally PCP follow-up. Discharge Diet: Low fat/ Low Cholesterol Discharge Activity: Return to Normal Activity May resume sexual activity in: No Restrictions Weight Bearing Status: Weight bearing as tolerated Call your doctor if you observe: Fever of 101 or Higher, Inability to urinate, Inability to have a bowel movement, Shortness of breath, Dizziness, Fainting spells, Chest pain, Uncontrolled pain Home Medications: Medications to take at Discharge cetirizine 5 mg-pseudoephedrine ER 120 mg tablet,extended release,12hr 1 tab PO DAILY 09/25/17 multivitamin tablet 1 tab PO QAM 09/25/17 potassium chloride ER 20 mEq tablet,extended release 20 meq PO DAILY 09/25/17 ascorbic acid (vitamin C) ER 1,000 mg tablet,extended release 1,000 mg PO DAILY 09/26/17 cholecalciferol (vitamin D3) 2,000 unit capsule 2,000 unit PO DAILY 09/26/17 fenofibrate nanocrystallized 145 mg tablet 145 mg PO DAILY 09/26/17 flaxseed oil 1,000 mg capsule 1,000 mg PO BID 09/26/17 fluticasone 50 mcg/actuation nasal spray,suspension 1 spray INTRANASAL PRN PRN 09/26/17 hydrocortisone 2.5 % rectal cream with applicator % TOPICAL PRN PRN 09/26/17 lisinopril 20 mg tablet 20 mg PO DAILY 09/26/17 metoprolol succinate ER 100 mg tablet,extended release 24 hr 100 mg PO BID 09/26 Famotidine [Pepcid] 20 mg PO BID #60 tab 10/29/17 Following Prescrptions Were Given to Patient: Famotidine [Pepcid] 20 mg PO BID #60 tab Primary Care Physician: Scooter Romero MD [Primary Care Provider] - Please follow up with your Primary Care Physician in: Follow-up within 3-5 days. Please Follow Up With: Allen Campos When: Please follow-up to review acute pancreatitis admit, consider EGD. Patient Instructions: Lipase, Understanding Pancreatitis, Discharge Instructions for Acute Pancreatitis Disposition: Home Minutes spent on discharge:: 35 Patient Condition:: Fair Medical Necessity - Tobacco Use Smoking Status: Former smoker Tobacco Use: Non-smoker Meaningful Use Info Meaningful Use Diagnoses (Choose all that apply): None applicable Code Visit Inpatient E&M: 02310 Disch Hosp
== END 2017-10-29 15:37 | disposition home or self-care (01) | DRG 440 ==
PROVIDERS: Admitting Provider Internal Medicine; Family Provider Family Medicine; PCP Family Medicine; Visit Provider Family Medicine
DX: K85.90 Acute pancreatitis without necrosis or infection, unspecified (principal); G47.33 Obstructive sleep apnea (adult) (pediatric); I10 Essential (primary) hypertension; Z79.899 Other long term (current) drug therapy; Z87.891 Personal history of nicotine dependence; K21.9 Gastro-esophageal reflux disease without esophagitis; E66.9 Obesity, unspecified; Z68.29 Body mass index [BMI] 29.0-29.9, adult; E78.5 Hyperlipidemia, unspecified
CPT/HCPCS: 36415; 74181; 76705; 80048; 80053; 80061; 80307; 80320; 81001; 83690; 85025; 97802; J7030; A4216; G0480; J2405

== ENCOUNTER → 2017-11-01 15:23 | Outpatient (CLI) | payer OTHER, SELFPAY ==
[2017-11-01 18:16] LABS: Lipase 1192 U/L (73-393)
== END ==
PROVIDERS: Family Provider Family Medicine; PCP Family Medicine; Visit Provider Family Medicine
DX: K85.90 Acute pancreatitis without necrosis or infection, unspecified (principal)
CPT/HCPCS: 36415; 83690

== ENCOUNTER → 2017-11-26 09:40 | Outpatient (CLI) | payer OTHER, SELFPAY | PROVIDERS: Family Provider Family Medicine; PCP Family Medicine; Visit Provider Nurse Practitioner Adult Health | DX: N40.0 Benign prostatic hyperplasia without lower urinary tract symptoms (principal); N52.9 Male erectile dysfunction, unspecified | CPT/HCPCS: 36415; 84403 ==

== ENCOUNTER → 2017-11-29 13:59 | Outpatient (CLI) | payer OTHER, SELFPAY ==
[2017-11-29 16:08] LABS: Luteinizing Hormone 7.3 mIU/mL
== END ==
PROVIDERS: Family Provider Family Medicine; PCP Family Medicine; Visit Provider Nurse Practitioner Adult Health
DX: E29.1 Testicular hypofunction (principal)
CPT/HCPCS: 36415; 83002; 84146

== ENCOUNTER → 2018-02-11 15:12 | Outpatient (CLI) | payer OTHER, SELFPAY | PROVIDERS: Family Provider Family Medicine; PCP Family Medicine; Visit Provider Nurse Practitioner Adult Health | DX: E29.1 Testicular hypofunction (principal) | CPT/HCPCS: 36415; 84403 ==

== ENCOUNTER → 2018-06-07 12:27 | Outpatient (CLI) | payer OTHER, SELFPAY ==
[2018-06-07 14:24] LABS: Hematocrit 43.4 % (40-54); Hemoglobin 14.7 g/dl (13.0-16.5); Mean Corp Hgb Conc 33.9 g/gl (32-36); Mean Corpuscular Hgb 28.4 pg (27.0-32.0); Mean Corpuscular Volume 83.8 fL (80-94); Mean Platelet Vol. 9.4 fl (6.2-12.0); Platelet Count 274 K/mm3 (150-450); RBC Distribution Width CV 13.5 % (11.6-14.6); RBC Distribution Width SD 40.6 fl (35.1-43.9); Red Blood Count 5.18 M/mm3 (4.6-6.2); White Blood Count 7.3 K/mm3 (4.4-11.0)
[2018-06-07 14:25] LABS: Scan Indicated on CBC? Y/N NO
[2018-06-07 14:45] LABS: ALB/GLOB Ratio 1.2 RATIO (0.9-2.4); AST(SGOT) 25 U/L (15-37); Alanine Aminotransfer ALT/SGPT 41 U/L (16-61); Albumin, Serum 4.1 g/dL (3.2-5.0); Alkaline Phosphatase 79 U/L (45-117); Anion Gap 10 (5-15); BUN 21 mg/dL (7-18); BUN/Creat Ratio 15.6 RATIO (10-20); Chloride 102 mmol/L (98-107); Cholesterol 179 mg/dL (200); Creatinine, Serum 1.35 mg/dL (0.70-1.30); EST Glomerular Filtration Rate 60 mL/min (>60); Est Glom Filt Rate - Afr Amer 72 mL/min (>60); Globulin 3.3 g/dL (2.2-4.2); Glucose 80 mg/dL (74-106); High Density Lipoprotein 32 mg/dL; Lipase 160 U/L (73-393); PSA,Total- Diagnostic 0.35 ng/mL (0.0-4.0); Protein, Total 7.4 g/dL (6.4-8.2); Sodium Level 138 mmol/L (136-145); Triglycerides 164 mg/dL; Very Low Density Lipoprotein 33 mg/dL (5-40)
[2018-06-08 09:18] LABS: CMV Antibody IgG < 0.60 U/mL (0.00-0.59); Immunoglobulin A 116 mg/dL (90-386)
--- OUTSIDE RECORDS SUMMARY | 2018-08-02 11:04 | XMS RPT_ITS ---
:1970 Author Organization OHIP Support Name Relationship Address Phone [facility] Unavailable [address] + [place] [address] DENGLENNA OXANA Unavailable [address] + [place] [address] [facility] Unavailable [address] + [place] [address] DENBOW, OXANA Unavailable [address] + [place] [address] [facility] Unavailable . + [place], [place] . DENBOW, OXANA Unavailable [address] + [place] [address] [facility] Unavailable . + [place] . DENBOW, OXANA Unavailable [address] + [place] [address] [facility] Unavailable . + [place] . DENBOW, OXANA Unavailable [address] + [place] [address] DENBOW, OXANA Unavailable Unavailable + [facility] Unavailable . + [place] . DENBOW, OXANA Unavailable [address] + [place] [address] [facility] Unavailable . + [place] . DENBOW, OXANA Unavailable [address] + [place] [address] [facility] Unavailable . + [place] . DENBOW, OXANA Unavailable [address] + [place] [address] [facility] Unavailable . + [place] . OXANA RAMSEY Unavailable [address] + [place] [address] [facility] Unavailable . + [place] OXANA RAMSEY Unavailable [address] + [place] [address] [facility] Unavailable . + [place] OXANA RAMSEY Unavailable [address] + [place] [address] [facility] Unavailable . + [place], OXANA Avery Unavailable [address] + [place] [address] Care Team Providers Name Role Phone Mark Lutz Attending Unavailable Ranney, Christopher Referring Unavailable Ranney, Christopher Primary Care Unavailable Deyanira, Rajendra Admitting Unavailable Ranney, Christopher Primary Care Unavailable Nilda Pratt Attending Unavailable Deyanira, Rajendra Admitting Unavailable Ranney, Christopher Primary Care Unavailable Deyanira, Rajendra Consulting Unavailable Mick Guy Attending Unavailable Deyanira, Rajendra Admitting Unavailable Stephane Gusman Attending Unavailable Ranney, Christopher Primary Care Unavailable Stephane Gusman Consulting Unavailable Deyanira, Rajendra Admitting Unavailable Nilda Pratt Attending Unavailable Ranney, Christopher Primary Care Unavailable Nilda Pratt Consulting Unavailable Ranney, Gavin Attending Unavailable Ranney, Christopher Primary Care Unavailable ManfredYancy chen Attending Unavailable Manfred, Yancy M Referring Unavailable Ranney, Christopher Primary Care Unavailable ManfredYancy chen Attending Unavailable Manfred, Yancy M Referring Unavailable Ranney, Christopher Primary Care Unavailable ManfredCandiYancy M Attending Unavailable Ranney, Christopher Primary Care Unavailable Manfred Yancy M Attending Unavailable Ranney, Christopher Primary Care Unavailable Manfred Yancy M Referring Unavailable Ranney, Christopher Attending Unavailable Ranney, Christopher Referring Unavailable Ranney, Christopher Primary Care Unavailable KARMA DEMPSEY Consulting Unavailable ManfredCandi chenecca M Consulting Unavailable Ranney, Christopher Attending Unavailable Gavin Romero Primary Care Unavailable LANCE FRANKEL Attending Unavailable LANCE FRANKEL Referring Unavailable MICK HICKS Attending Unavailable EK KARMAVAN MCCONNELLI Attending Unavailable KE KARMAVAN MCCONNELLI Attending Unavailable KE, KARMA NABI Referring Unavailable KE, KARMA NABI Attending Unavailable KE, KARMA NABI Referring Unavailable PROBLEMS PROBLEMS DATE TYPE CONDITION / CODE ATTENDING STATUS SOURCE 10/23/2017 Active Unknown / MICK HICKS Active [facility] UNK(Unknown) [facility] Repository PROCEDURES PROCEDURES No Procedure Records FoundRESULTS RESULTS BASIC METABOLIC Collected: 06/13/2018 Status: F Source: [place] PROFILE (BMP) 4:34 PM [facility] REPOSITORY TYPE CODE TESTS RESULT OUT OF RANGE REFERENCE UNITS LAB L501.0100 74-106 mg/dL Normal GLU 90 Result Comment: Please note revised GLUCOSE reference range effective 2017. LAB L501.1000 7-18 mg/dL Normal BUN 18 LAB L501.1100 0.70-1.30 mg/dL Normal CREAT,SERUM 1.25 Result Comment: The validity of the calculated GFR AND GFRAA in patients over 70 years has not been determined. Clinical correlation is essential. LAB L501.1110 >60 mL/min Normal EST GFR 65 Result Comment: Non- GFR Calc LAB L501.1115 >60 mL/min Normal EST GFR - AA 79 Result Comment: GFR Calc LAB L501.1300 10-20 RATIO Normal BUN/CRE 14.4 LAB L501.2200 8.5-10.1 mg/dL CA Normal 9.0 LAB L501.5300 136-145 mmol/L NA Normal 136 LAB L501.5600 3.5-5.1 mmol/L K Normal 4.3 LAB L501.5900 98-107 mmol/L CL Normal 104 LAB L501.6100 21.0-32.0 mmol/L Normal CO2 24.0 LAB L501.6200 5-15 Normal GAP 8 Performed By: #### L500.2500 #### [facility] [address] [place], [address] CBC-COMPLETE BLOOD CNT Collected: 06/07/2018 Status: F Source: [place] NO DIFF 12:35 PM [facility] REPOSITORY Order Comment: DR. PARADA ORDERED IGG KIMANI DR. ANTONIO ORDERED CBC TESTO TYPE CODE TESTS RESULT OUT OF RANGE REFERENCE UNITS LAB L100.1000 4.4-11.0 K/mm3 Normal WBC 7.3 LAB L100.1200 4.6-6.2 M/mm3 Normal RBC 5.18 LAB L100.1300 13.0-16.5 g/dl Normal HGB 14.7 LAB L100.1400 40-54 % Normal HCT 43.4 LAB L100.1500 80-94 fL Normal MCV 83.8 LAB L100.1600 27.0-32.0 pg Normal MCH 28.4 LAB L100.1700 32-36 g/gl Normal MCHC 33.9 LAB L100.1810 11.6-14.6 % Normal RDW CV 13.5 LAB L100.1820 35.1-43.9 fl Normal RDW SD 40.6 LAB L100.1900 150-450 K/mm3 Normal PLT 274 LAB L100.2000 6.2-12.0 fl Normal MPV 9.4 Performed By: #### L100.0500 #### [facility] [address] [place], [place], [address] TESTOSTERONE, SERUM TOTAL Collected: 06/07/2018 Status: F Source: [place] 12:35 [facility] REPOSITORY Order Comment: DR. PARADA ORDERED IGG KIMANI DR. ANTONIO ORDERED CBC TESTO TYPE CODE TESTS RESULT OUT OF REFERENCE UNITS RANGE LAB L509.3000 ng/dL Testosterone Normal 179.86 Result Comment: NORMAL REFERENCE RANGES MALE AGE <50 123.06 - 813.86 ng/dL MALE AGE >50 89.98 - 780.10 ng/dL FEMALE PREMENOPAUSE AGE 21 - 60 9.01 - 47.94 ng/dL FEMALE POSTMENOPAUSE AGE 45 - 89 <7.00 - 45.62 ng/dL REFERENCE RANGE AND METHODOLOGY CHANGED 06/27/2017 Performed By: #### L509.3000 #### [facility] [address] [place], [place], [address] IMMUNOGLOBULIN A Collected: 06/07/2018 Status: F Source: [place] 12:35 PM [facility] REPOSITORY Order Comment: DR. PARADA ORDERED IGG KIMANI DR. ANTONIO ORDERED CBC TESTO Is Patient Fasting? N TYPE CODE TESTS RESULT OUT OF RANGE REFERENCE UNITS LAB L3200.1400 90-386 mg/dL Normal IMMUNO A 116 Result Comment: Performed at: [facility] [address] [id number] [employer] Front Edge Tape Sewer: Stu Barkley PhD, Phone: [phone] Performed By: #### L3200.1400, L3400.1490 #### [facility] (refer to report for specific site) refer to report for address and phone number CMV ANTIBODY IGG Collected: 06/07/2018 Status: F Source: [place] 12:35 PM [facility] REPOSITORY Order Comment: DR. PARADA ORDERED IGG KIMANI DR. ANTONIO ORDERED CBC TESTO Is Patient Fasting? N TYPE CODE TESTS RESULT OUT OF RANGE REFERENCE UNITS LAB L3400.1490 0.00-0.59 U/mL Normal CMV AB < 0.60 IgG Result Comment: Negative <0.60 Equivocal 0.60 - 0.69 Positive >0.69 Performed By: #### L3200.1400, L3400.1490 #### [facility] (refer to report for specific site) refer to report for address and phone number COMPREHENSIVE METABOLIC Collected: 06/07/2018 Status: F Source: [place] [facility] 12:34 PM [facility] REPOSITORY Order Comment: Order Date: 01/30/18 Order Info: [id number] - CMP Order Info: [id number] - LIPID Order Info: 3040-3 - LIPASE Order Info: 0783-1 - PSAD TYPE CODE TESTS RESULT OUT OF RANGE REFERENCE UNITS LAB L501.0100 74-106 mg/dL Normal GLU 80 Result Comment: Please note revised GLUCOSE reference range effective 2017. LAB L501.1000 7-18 mg/dL High BUN 21 LAB L501.1100 0.70-1.30 mg/dL High CREAT,SERUM 1.35 Result Comment: The validity of the calculated GFR AND GFRAA in patients over 70 years has not been determined. Clinical correlation is essential. LAB L501.1110 >60 mL/min Normal EST GFR 60 Result Comment: Non- GFR Calc LAB L501.1115 >60 mL/min Normal EST GFR - AA 72 Result Comment: GFR Calc LAB L501.1300 10-20 RATIO Normal BUN/CRE 15.6 LAB L501.1500 6.4-8.2 g/dL T Normal PROT 7.4 LAB L501.1800 3.2-5.0 g/dL Normal ALB 4.1 LAB L501.1950 2.2-4.2 g/dL Normal GLOB 3.3 LAB L501.2000 0.9-2.4 RATIO Normal A/G 1.2 LAB L501.2200 8.5-10.1 mg/dL CA Normal 9.0 LAB L501.4100 15-37 U/L Normal AST 25 LAB L501.4305 45-117 U/L Normal ALK P 79 LAB L501.4405 16-61 U/L Normal ALT 41 LAB L501.4600 0.20-1.00 mg/dL T Normal BILI 0.50 LAB L501.5300 136-145 mmol/L NA Normal 138 LAB L501.5600 3.5-5.1 mmol/L K Normal 4.0 LAB L501.5900 98-107 mmol/L CL Normal 102 LAB L501.6100 21.0-32.0 mmol/L Normal CO2 26.0 LAB L501.6200 5-15 Normal GAP 10 Performed By: #### L500.4050, L500.4100, L501.2450, L501.9940 #### [facility] [address] [place], [address] LIPID PROFILE Collected: 06/07/2018 Status: F Source: [place] 12:34 PM [facility] REPOSITORY Order Comment: Order Date: 01/30/18 Order Info: [id number] - CMP Order Info: [id number] - LIPID Order Info: 3040-3 - LIPASE Order Info: 0783-1 - PSAD TYPE CODE TESTS RESULT OUT OF RANGE REFERENCE UNITS LAB L501.4900 200 mg/dL Normal CHOL 179 Result Comment: <200 mg/dL Desirable 200-240 mg/dL Borderline >240 mg/dL High Risk LAB L501.5000 mg/dL Normal TRIG 164 Result Comment: The drugs N-Acetylcysteine and Metamizole may falsely depress this assay. Serum Triglycerides Reference Interval Normal <150 mg/dL Borderline high 150 - 199 mg/dL High 200 - 499 mg/dL Very High > or = 500 mg/dL LAB L501.6400 mg/dL Low HDL 32 Result Comment: The drugs N-Acetylcysteine and Metamizole may falsely depress this assay. Reference Range HDL <40 mg/dL Low HDL Cholesterol HDL >or= 60 mg/dL High HDL Cholesterol LAB L501.6500 0-130 mg/dL Normal LDL 114 LAB L501.6600 5-40 mg/dL Normal VLDL 33 Performed By: #### L500.4050, L500.4100, L501.2450, L501.9940 #### [facility] [address] [place], [address] LIPASE Collected: 06/07/2018 Status: F Source: [place] 12:34 PM [facility] REPOSITORY Order Comment: Order Date: 01/30/18 Order Info: [id number] - CMP Order Info: [id number] - LIPID Order Info: 3040-3 - LIPASE Order Info: 0783-1 - PSAD TYPE CODE TESTS RESULT OUT OF RANGE REFERENCE UNITS LAB L501.2450 73-393 U/L Normal LIPASE 160 Performed By: #### L500.4050, L500.4100, L501.2450, L501.9940 #### [facility] [address] [place], [address] PSA,TOTAL- DIAGNOSTIC Collected: 06/07/2018 Status: F Source: [place] 12:34 [facility] REPOSITORY Order Comment: Order Date: 01/30/18 Order Info: [id number] - CMP Order Info: [id number] - LIPID Order Info: 3040-3 - LIPASE Order Info: 0783-1 - PSAD TYPE CODE TESTS RESULT OUT OF RANGE REFERENCE UNITS LAB L501.9940 0.0-4.0 ng/mL PSA, Normal DIAGNOSTIC 0.35 Result Comment: This test was performed using the TPSA assay method for the Cell[employer] chemistry system. Values obtained with different assay methods cannot be used interchangably. When changing PSA assays in the course of monitoring a patient, additional sequential testing should be carried out to confirm baseline values. Performed By: #### L500.4050, L500.4100, L501.2450, L501.9940 #### [facility] [place], [address] OBSOLETE Observed: 04/25/2018 Status: COMPLETED Source: [place] 12:00 AM [facility] REPOSITORY Refill (AGFAMPLE) COSTA RAMSEY ([id number]) 1970 M Date Time Provider Department 04/25/18 DUC ARAUJO (VOLUNTEER PATIENT REPRESENTATIVE-C) AGFAMPLE During your visit today, we recorded the following information about you: Allergies As of Date: 04/25/2018 (No Known Allergies) Date Reviewed: 03/19/2018 Reviewed by: Karma Dempsey - Fully Assessed Reason for Visit: Refill Request [94] Prescriptions as of 04/25/2018 Sig: CIALIS 5 MG TABLET TESTOSTERONE 1 % (50 MG/5 GRA* OMEPRAZOLE 40 MG CAPSULE,JENNIFER* 1 capsule once daily. HYDROCORTISONE 2.5 % TOPICAL * FENOFIBRATE NANOCRYSTALLIZED * LISINOPRIL 20 MG TABLET METOPROLOL SUCCINATE ER 100 M* twice daily. POTASSIUM CHLORIDE ER 20 MEQ * FLUTICASONE 50 MCG/ACTUATION * ZYRTEC-D ORAL Take by mouth. IBUPROFEN ORAL Take by mouth as needed. Problem List As Of Date 04/25/2018 Noted Resolved Dry eye syndrome of bilateral lacrimal glands [*INVALID FOR* Refractive error [H52.7] INVALID FOR* Encounter for screening for malignant neoplasm *INVALID FOR* Essential (primary) hypertension [I10] INVALID FOR* Encounter Status:Closed by JONATHAN EUGENE on 04/25/18 PROGRESS Observed: 03/19/2018 Status: COMPLETED Source: [place] 3:36 PM [facility] REPOSITORY HNO ID: [id number] Author: Karma Dempsey Service: (none) Author Type: Physician Type: Progress Notes Filed: 03/19/2018 4:05 PM Note Text: HPI Costa Ramsey is a 47 year old male here today for pancreatitis. Has not had any further episodes of pain. No anorexia or nausea or vomiting. No diarrhea. Has been abstaining from alcohol. Has been of HCTZ for 2 years. EGD was noted to be normal. No Greer's esophagus. Antral Bx neg for H. Pylori. Current Outpatient Prescriptions: CIALIS 5 mg tablet testosterone (ANDROGEL) 50 mg / 5 g (1%) glpk hydrocortisone (ANUSOL-HC) 2.5 % rectal cream fenofibrate nanocrystallized (TRICOR) 145 mg tablet lisinopril (ZESTRIL, PRINIVIL) 20 mg tablet metoprolol succinate ER (TOPROL XL) 100 mg Tb24 twice daily. potassium chloride ER (K-DUR, KLOR-CON) 20 mEq tablet fluticasone (FLONASE) 50 mcg/actuation nasal spray CETIRIZINE HCL/PSEUDOEPHEDRINE (ZYRTEC-D ORAL) Take by mouth. IBUPROFEN ORAL Take by mouth as needed. Omeprazole 40 mg capsule 1 capsule once daily. No current facility-administered medications for this visit. ALLERGIES No Known Allergies Social History Substance Use Topics - Smoking status: Former Smoker Quit date: 12/11/2012 - Smokeless tobacco: Never Used - Alcohol use Yes PAST MEDICAL HISTORY Diagnosis Date - Dry eyes - Environmental and seasonal allergies - History of shingles - HTN (hypertension) - Hypercholesterolemia - Pancreatitis - Sleep apnea PAST SURGICAL HISTORY Procedure Laterality Date - COLONOSCOPY 04/13/2016 normal colon - EGD 12/05/2017 normal scope, biopsy consistent with reflux disease - HEMORRHOID SURGERY HX 2011 - REMOVE TONSIL AND ADENOI UNDER AGE 12 FAMILY HISTORY Problem Relation Age of Onset - Cataract Father - Hypertension Father - Cataract Mother - Hypertension Mother - Diabetes Mother REVIEW OF SYSTEMS Review of Systems All other systems reviewed and are negative. PHYSICAL EXAM BP 110/74 Pulse 76 Ht 6' 0 (1.83m) Wt 223 lb (101.2kg) SpO2 99% BMI 30.24 kg/(m2). Physical Exam Constitutional: He is oriented to person, place, and time. He appears well-developed and well-nourished. HENT: Head: Normocephalic and atraumatic. Right Ear: External ear normal. Left Ear: External ear normal. Nose: Nose normal. Mouth/Throat: Oropharynx is clear and moist. Eyes: Pupils are equal, round, and reactive to light. Conjunctivae and EOM are normal. Neck: Normal range of motion. Neck supple. Cardiovascular: Normal rate, regular rhythm, normal heart sounds and intact distal pulses. Pulmonary/Chest: Effort normal and breath sounds normal. Abdominal: Soft. Bowel sounds are normal. Musculoskeletal: Normal range of motion. Neurological: He is alert and oriented to person, place, and time. He has normal reflexes. Skin: Skin is warm and dry. Psychiatric: He has a normal mood and affect. His behavior is normal. Judgment and thought content normal. I have confirmed and edited as necessary, the PFSH, HPI and ROS obtained by others. ASSESSMENT: Idiopathic acute pancreatitis without infection or necrosis (primary encounter diagnosis) Gastroesophageal reflux disease with esophagitis PLAN: Office Visit on 03/19/18 -CMV IGG ANTIBODY BL -IMMUNOGLOB A SUBCLASSES 1 AND 2 Return in about 6 months (around 09/16/2018). Contin. omeprazole Karma Dempsey MD Return in about 6 months (around 09/16/2018). Karma Dempsey MD DATE: 03/19/18 TIME: 4:04 PM DATE: 03/19/18 TIME: 3:36 PM CNOV Observed: 03/19/2018 Status: COMPLETED Source: [place] 3:15 PM [facility] REPOSITORY Office Visit (GSTNOR) COSTA RAMSEY ([id number]) 1970 M Date Time Provider Department 03/19/18 3:15 PM KARMA DEMPSEY GSTNOR During your visit today, we recorded the following information about you: Pulse Blood pressure Weight Height 76/minute 110/74 101.2 kg 1.829 m Karma Dempsey MD 03/19/2018 4:05 PM Signed HPI Costa Jackelyn Ramsey is a 47 year old male here today for pancreatitis. Has not had any further episodes of pain. No anorexia or nausea or vomiting. No diarrhea. Has been abstaining from alcohol. Has been of HCTZ for 2 years. EGD was noted to be normal. No Greer's esophagus. Antral Bx neg for H. Pylori. Current Outpatient Prescriptions: CIALIS 5 mg tablet testosterone (ANDROGEL) 50 mg / 5 g (1%) glpk hydrocortisone (ANUSOL-HC) 2.5 % rectal cream fenofibrate nanocrystallized (TRICOR) 145 mg tablet lisinopril (ZESTRIL, PRINIVIL) 20 mg tablet metoprolol succinate ER (TOPROL XL) 100 mg Tb24 twice daily. potassium chloride ER (K-DUR, KLOR-CON) 20 mEq tablet fluticasone (FLONASE) 50 mcg/actuation nasal spray CETIRIZINE HCL/PSEUDOEPHEDRINE (ZYRTEC-D ORAL) Take by mouth. IBUPROFEN ORAL Take by mouth as needed. Omeprazole 40 mg capsule 1 capsule once daily. No current facility-administered medications for this visit. ALLERGIES No Known Allergies Social History Substance Use Topics - Smoking status: Former Smoker Quit date: 12/11/2012 - Smokeless tobacco: Never Used - Alcohol use Yes PAST MEDICAL HISTORY Diagnosis Date - Dry eyes - Environmental and seasonal allergies - History of shingles - HTN (hypertension) - Hypercholesterolemia - Pancreatitis - Sleep apnea PAST SURGICAL HISTORY Procedure Laterality Date - COLONOSCOPY 04/13/2016 normal colon - EGD 12/05/2017 normal scope, biopsy consistent with reflux disease - HEMORRHOID SURGERY HX 2012 - REMOVE TONSIL AND ADENOI UNDER AGE 12 FAMILY HISTORY Problem Relation Age of Onset - Cataract Father - Hypertension Father - Cataract Mother - Hypertension Mother - Diabetes Mother REVIEW OF SYSTEMS Review of Systems All other systems reviewed and are negative. PHYSICAL EXAM BP 110/74 Pulse 76 Ht 6' 0 (1.83m) Wt 223 lb (101.2kg) SpO2 99% BMI 30.24 kg/(m2). Physical Exam Constitutional: He is oriented to person, place, and time. He appears well-developed and well-nourished. HENT: Head: Normocephalic and atraumatic. Right Ear: External ear normal. Left Ear: External ear normal. Nose: Nose normal. Mouth/Throat: Oropharynx is clear and moist. Eyes: Pupils are equal, round, and reactive to light. Conjunctivae and EOM are normal. Neck: Normal range of motion. Neck supple. Cardiovascular: Normal rate, regular rhythm, normal heart sounds and intact distal pulses. Pulmonary/Chest: Effort normal and breath sounds normal. Abdominal: Soft. Bowel sounds are normal. Musculoskeletal: Normal range of motion. Neurological: He is alert and oriented to person, place, and time. He has normal reflexes. Skin: Skin is warm and dry. Psychiatric: He has a normal mood and affect. His behavior is normal. Judgment and thought content normal. I have confirmed and edited as necessary, the PFSH, HPI and ROS obtained by others. ASSESSMENT: Idiopathic acute pancreatitis without infection or necrosis (primary encounter diagnosis) Gastroesophageal reflux disease with esophagitis PLAN: Office Visit on 03/19/18 -CMV IGG ANTIBODY BL -IMMUNOGLOB A SUBCLASSES 1 AND 2 Return in about 6 months (around 09/16/2018). Contin. omeprazole Karma Dempsey MD Return in about 6 months (around 09/16/2018). Karma Dempsey MD DATE: 03/19/18 TIME: 4:04 PM DATE: 03/19/18 TIME: 3:36 PM Referring Provider: KARMA DEMPSEY [[id number]] Allergies As of Date: 03/19/2018 (No Known Allergies) Date Reviewed: 03/19/2018 Reviewed by: Karma Dempsey - Fully Assessed Reason for Visit: Pancreatitis [581] Cmt: Follow up EGD Primary Visit Diagnosis:Idiopathic acute pancreatitis without infection or necrosis [K85.00] Other Visit Diagnosis:Gastroesophageal reflux disease with esophagitis [K21.0] Order(s):CMV IGG ANTIBODY BL [SQCMVG] Order #: [id number] FUTURE IMMUNOGLOB A SUBCLASSES 1 AND 2 [SQIGA12] Order #: [id number] FUTURE Prescriptions as of 03/19/2018 Sig: CIALIS 5 MG TABLET TESTOSTERONE 1 % (50 MG/5 GRA* HYDROCORTISONE 2.5 % TOPICAL * FENOFIBRATE NANOCRYSTALLIZED * LISINOPRIL 20 MG TABLET METOPROLOL SUCCINATE ER 100 M* twice daily. POTASSIUM CHLORIDE ER 20 MEQ * FLUTICASONE 50 MCG/ACTUATION * ZYRTEC-D ORAL Take by mouth. IBUPROFEN ORAL Take by mouth as needed. OMEPRAZOLE 40 MG CAPSULE,JENNIFER* 1 capsule once daily. Problem List As Of Date 03/19/2018 Noted Resolved Dry eye syndrome of bilateral lacrimal glands [*INVALID FOR* Refractive error [H52.7] INVALID FOR* Encounter for screening for malignant neoplasm *INVALID FOR* Essential (primary) hypertension [I10] INVALID FOR* Medications Discontinued During This Encounter ciprofloxacin HCl (CIPRO) 500 mg tab* 09/26/2017 03/19/2018 Class: Historical Med Sig: Disc: Discontinued by another Health Care Provider famotidine (PEPCID) 20 mg tablet 10/29/2017 03/19/2018 Class: Historical Med Sig: Disc: Discontinued by another Health Care Provider VIAGRA 25 mg tablet 04/16/2015 03/19/2018 Class: Historical Med Sig: Disc: Discontinued by another Health Care Provider ADVAIR DISKUS 250-50 mcg/dose dsdv 06/17/2015 03/19/2018 Class: Historical Med Sig: Disc: Discontinued by another Health Care Provider Hydrochlorothiazide 12.5 mg capsule 06/14/2015 03/19/2018 Class: Historical Med Sig: Disc: Discontinued by another Health Care Provider propranolol (INDERAL) 10 mg tablet 06/14/2015 03/19/2018 Class: Historical Med Sig: Disc: Discontinued by another Health Care Provider DOCOSAHEXANOIC ACID/EPA (FISH OIL OR* 03/19/2018 Class: Historical Med Route: ORAL Sig: Take by mouth. Disc: Discontinued by another Health Care Provider Multivitamin capsule 03/19/2018 Class: Historical Med Route: ORAL Sig: Take 1 capsule by mouth once daily. Disc: Discontinued by Patient Disposition: Return in about 6 months (around 09/16/2018). Follow-up and Disposition History Recorded Encounter Status:Closed by KARMA DEMPSEY MD on 03/19/18 TESTOSTERONE, SERUM TOTAL Collected: 02/11/2018 Status: F Source: [place] 3:16 PM [facility] REPOSITORY TYPE CODE TESTS RESULT OUT OF REFERENCE UNITS RANGE LAB L509.3000 ng/dL Testosterone Normal 248.52 Result Comment: NORMAL REFERENCE RANGES MALE AGE <50 123.06 - 813.86 ng/dL MALE AGE >50 89.98 - 780.10 ng/dL FEMALE PREMENOPAUSE AGE 21 - 60 9.01 - 47.94 ng/dL FEMALE POSTMENOPAUSE AGE 45 - 89 <7.00 - 45.62 ng/dL REFERENCE RANGE AND METHODOLOGY CHANGED 06/27/2017 Performed By: #### L509.3000 #### [facility] [address] [place], [address] CNCO Observed: 12/06/2017 Status: COMPLETED Source: [place] 12:00 AM [facility] REPOSITORY Letter Text Karma Dempsey MD [address] [place] [address] December 06, 2017 Costa aRmsey [facility]# [id number] [address] [facility] [address] Dear Mr. Ramsey: We have tried on several occasions to contact you by telephone to schedule your appointment(s) without success. Please call our office at [phone] option 2 to schedule your appointment. Our phones are on Sunday through Sunday from 9:00am until 12:00pm and 1:00pm until 4:00pm. Thank you for your cooperation. Sincerely, Karma Dempsey MD SURGICAL PATHOLOGY Observed: 12/05/2017 Status: C Source: [place] 7:41 AM [facility] REPOSITORY ADDENDUM PRESENT Specimen originated from [facility] Specimen #: [id number] Submitting Physician: KARMA DEMPSEY FINAL DIAGNOSIS 1. Esophagogastric junction, biopsy (A) - Squamous esophageal mucosa with basal zone hyperplasia and intraepithelial eosinophils (up to 2 eosinophils per high-power field) consistent with reflux disease. - Inflamed cardia-type mucosa with reactive epithelial changes. - No morphologic evidence of intestinal metaplasia or dysplasia. 2. Stomach, antrum, biopsy (B) - Chronic active gastritis. AEB/srgabriel 12/07/2017 COMMENT Immunohistochemical stain for Helicobacter pylori organisms is pending. Addendum report will follow. AEB/srgabriel 12/07/2017 Jayda Parra M.D. (Electronic Signature) SPECIMEN SUBMITTED A: ESOPHAGOGASTRIC JUNCTION, BIOPSY B: ANTRUM, BIOPSY ADDENDUM Date Ordered: 12/11/2017 Date Reported: 12/11/2017 Given the background of chronic gastritis a Helicobacter pylori immunostain was performed on block B and is negative for Helicobacter pylori organisms. Laboratory Developed Test (LDT) Disclaimer: Positive and negative controls stain appropriately. Performance characteristics of immunohistochemical, immunofluorescent and chromogenic in-situ hybridization tests have been determined by [facility]'s [facility] [place] ([facility]) in a manner consistent with CLIA requirements. One or more of these tests have not been cleared or approved by the FDA. [facility] is regulated under CLIA as qualified to perform high-complexity testing. These tests are used for clinical purposes. They should not be regarded as investigational or for research. Addendum Pathologist: Jayda Parra M.D. Electronic Signature CLINICAL DATA Abdominal pain GROSS DESCRIPTION A. Received in formalin are two pieces of wong, soft tissue aggregating to 0.7 x 0.2 x 0.2 cm. Totally submitted in one cassette. B. Received in formalin are four pieces of wong, soft tissue aggregating to 1.2 x 0.2 x 0.2 cm. Totally submitted in one cassette. Gross examination performed at [facility], [address] [place] [address] 12/06/2017 12:34:19 AM Date of Report: 12/07/2017 Date of Procedure: 12/05/2017 Date of Receipt: 12/05/2017 Submitted by: KARMA DEMPSEY Location: [facility] Diagnostic interpretation performed at [facility], [address], [facility] [address]. HISTORY PHYSICAL Observed: 12/05/2017 Status: COMPLETED Source: [place] 7:[address] [facility] REPOSITORY HNO ID: [id number] Author: Karma Dempsey Service: (none) Author Type: Physician Type: HANDP Filed: 12/05/2017 7:44 AM Note Text: HISTORY AND PHYSICAL Costa Ramsey, 47 year old male Current history and physical on file: No Is a new History and Physical required for today's visit? Yes Indication for procedure: Abdominal pain PROCEDURE(S) SCHEDULED FOR: EGD (Esophagogastroduodenoscopy) with or without biopsies, removal of polyps or lesions, dilation ( any means), treatment of bleeding ( any means), Barrx treatment of Gilmar's Esophagus, image tube placement or cryo therapy treatment based on clinical findings. BASELINE BEHAVIOR: Calm BASELINE ORIENTATION: A AND O x3 All medications and allergies reviewed: Yes Skin Assessment: Warm dry muscus membranes pink Airway/Respiratory Assessment: Airway: visualization of the uvula- Yes Mouth: opening greater than 2 fingerbreadths- Yes Neck: full range of motion- Yes Breath sounds clear/equal- Yes Cardiac Assessment: Regular rate and rhythm without murmur Abdominal Assessment: Abdomen soft, non-tender, no masses or organomegaly. Sedation Plan: MAC Additional Comments: None Karma Dempsey MD LUTEINIZING HORMONE Collected: 11/29/2017 Status: F Source: [place] 2:10 PM [facility] REPOSITORY TYPE CODE TESTS RESULT OUT OF RANGE REFERENCE UNITS LAB L3100.5170 mIU/mL Normal LH 7.3 Result Comment: NORMAL REFERENCE RANGES FEMALE FOLLICULAR 1.9 - 26.2 mIU/mL MID-CYCLE PEAK 22.8 - 76.1 mIU/mL LUTEAL 0.6 - 16.6 mIU/mL POST-MENOPAUSAL ON MHT 1.1 - 52.4 mIU/mL NOT ON MHT 8.6 - 61.8 mIU/mL MALE 1.2 - 10.6 mIU/mL NEW TEST METHOD AND REFERENCE RANGES NOVEMBER 27, 2011 Performed By: #### L3100.5170, L3100.5420 #### [facility] [address] [place], [address] PROLACTIN Collected: 11/29/2017 Status: F Source: [place] 2:10 PM [facility] REPOSITORY TYPE CODE TESTS RESULT OUT OF RANGE REFERENCE UNITS LAB [id number] ng/mL Normal PROLACTIN 6.0 Result Comment: NORMAL REFERENCE RANGES FEMALE NON- 2.2 - 30.3 ng/mL 8.1 - 347.6 ng/mL POST-MENOPAUSAL 0.7 - 31.5 ng/mL MALE 2.5 - 17.4 ng/mL NEW TEST METHOD AND REFERENCE RANGES NOVEMBER 27, 2011 Performed By: #### L3100.5170, L3100.5420 #### [facility] [address] [place], [address] TESTOSTERONE, SERUM TOTAL Collected: 11/26/2017 Status: F Source: [place] 9:50 AM [facility] REPOSITORY TYPE CODE TESTS RESULT OUT OF REFERENCE UNITS RANGE LAB L509.3000 ng/dL Testosterone Normal 240.29 Result Comment: NORMAL REFERENCE RANGES MALE AGE <50 123.06 - 813.86 ng/dL MALE AGE >50 89.98 - 780.10 ng/dL FEMALE PREMENOPAUSE AGE 21 - 60 9.01 - 47.94 ng/dL FEMALE POSTMENOPAUSE AGE 45 - 89 <7.00 - 45.62 ng/dL REFERENCE RANGE AND METHODOLOGY CHANGED 06/27/2017 Performed By: #### L509.3000 #### [facility] [address] [place], [address] PROGRESS Observed: 11/07/2017 Status: COMPLETED Source: [place] 4:19 PM [facility] REPOSITORY HNO ID: [id number] Author: Karma Dempsey Service: (none) Author Type: Physician Type: Progress Notes Filed: 11/07/2017 8:12 PM Note Text: HPI:Costa Ramsey is a 47 year old male who presents for Pancreatitis. Was seen in ER on 10/26/17, after 1 day of sever epigastric pain. Lipase level was 4085, then down to 2000, then 1000 range. Has drink only only on holidays- a glass or two. Never a heavy drinker. U/S and MRI and CT scan showed no gallstones or mass lesions. CT and MRI showed fatty liver and pancreatitis, but no gallstones or dilated ducts. LFTs Nl. PAST MEDICAL HISTORY Diagnosis Date - Dry eyes - Environmental and seasonal allergies - History of shingles - HTN (hypertension) - Hypercholesterolemia - Sleep apnea PAST SURGICAL HISTORY Procedure Laterality Date - COLONOSCOPY 04/13/2016 normal colon - HEMORRHOID SURGERY HX 2012 - REMOVE TONSIL AND ADENOI UNDER AGE 11 Allergies: ALLERGIES No Known Allergies Medications: famotidine (PEPCID) 20 mg tablet hydrocortisone (ANUSOL-HC) 2.5 % rectal cream fenofibrate nanocrystallized (TRICOR) 145 mg tablet lisinopril (ZESTRIL, PRINIVIL) 20 mg tablet metoprolol succinate ER (TOPROL XL) 100 mg Tb24 potassium chloride ER (K-DUR, KLOR-CON) 20 mEq tablet fluticasone (FLONASE) 50 mcg/actuation nasal spray CETIRIZINE HCL/PSEUDOEPHEDRINE (ZYRTEC-D ORAL) Take by mouth. IBUPROFEN ORAL Take by mouth. ciprofloxacin HCl (CIPRO) 500 mg tablet VIAGRA 25 mg tablet ADVAIR DISKUS 250-50 mcg/dose dsdv Hydrochlorothiazide 12.5 mg capsule Omeprazole 40 mg capsule propranolol (INDERAL) 10 mg tablet Multivitamin capsule Take 1 capsule by mouth once daily. DOCOSAHEXANOIC ACID/EPA (FISH OIL ORAL) Take by mouth. FAMILY HISTORY Problem Relation Age of Onset - Cataract Father - Hypertension Father - Cataract Mother - Hypertension Mother - Diabetes Mother Employer And Job Title: None on file Years Of Education Completed: Not specified Marital Status: Social History Substance Use Topics - Smoking status: Former Smoker Quit date: 12/11/2012 - Smokeless tobacco: Never Used - Alcohol use Yes Review of Systems: Review of Systems Physical Examination: BP 122/64 Pulse 88 Ht 6' 0 (1.83m) Wt 225 lb (102.1kg) BMI 30.51 kg/(m2). Physical Exam Constitutional: He is oriented to person, place, and time. He appears well-developed and well-nourished. HENT: Head: Normocephalic and atraumatic. Right Ear: External ear normal. Left Ear: External ear normal. Nose: Nose normal. Mouth/Throat: Oropharynx is clear and moist. Eyes: Conjunctivae and EOM are normal. Pupils are equal, round, and reactive to light. Neck: Normal range of motion. Neck supple. Cardiovascular: Normal rate, regular rhythm, normal heart sounds and intact distal pulses. Pulmonary/Chest: Effort normal and breath sounds normal. Abdominal: Soft. Bowel sounds are normal. Musculoskeletal: Normal range of motion. Neurological: He is alert and oriented to person, place, and time. He has normal reflexes. Skin: Skin is warm and dry. Psychiatric: He has a normal mood and affect. His behavior is normal. Judgment and thought content normal. ASSESSMENT: Idiopathic acute pancreatitis without infection or necrosis (primary encounter diagnosis) PLAN: Office Visit on 11/07/17 -EGD Return in about 2 years (around 11/08/2019). Karma Dempsey DATE: 11/07/17 TIME: 4:36 PM PROGRESS Observed: 11/07/2017 Status: COMPLETED Source: [place] 4:[address] [facility] [place] REPOSITORY HNO ID: [id number] Author: Karma Dempsey Service: (none) Author Type: Physician Type: Progress Notes Filed: 11/07/2017 8:12 PM Note Text: HPI:Costa Ramsey is a 47 year old male who presents for Pancreatitis. PAST MEDICAL HISTORY Diagnosis Date - Dry eyes - Environmental and seasonal allergies - History of shingles - HTN (hypertension) - Hypercholesterolemia - Sleep apnea PAST SURGICAL HISTORY Procedure Laterality Date - COLONOSCOPY 04/13/2016 normal colon - HEMORRHOID SURGERY HX 2012 - REMOVE TONSIL AND ADENOI UNDER AGE 11 Allergies: ALLERGIES No Known Allergies Medications: famotidine (PEPCID) 20 mg tablet hydrocortisone (ANUSOL-HC) 2.5 % rectal cream fenofibrate nanocrystallized (TRICOR) 145 mg tablet lisinopril (ZESTRIL, PRINIVIL) 20 mg tablet metoprolol succinate ER (TOPROL XL) 100 mg Tb24 potassium chloride ER (K-DUR, KLOR-CON) 20 mEq tablet fluticasone (FLONASE) 50 mcg/actuation nasal spray CETIRIZINE HCL/PSEUDOEPHEDRINE (ZYRTEC-D ORAL) Take by mouth. IBUPROFEN ORAL Take by mouth. ciprofloxacin HCl (CIPRO) 500 mg tablet VIAGRA 25 mg tablet ADVAIR DISKUS 250-50 mcg/dose dsdv Hydrochlorothiazide 12.5 mg capsule Omeprazole 40 mg capsule propranolol (INDERAL) 10 mg tablet Multivitamin capsule Take 1 capsule by mouth once daily. DOCOSAHEXANOIC ACID/EPA (FISH OIL ORAL) Take by mouth. FAMILY HISTORY Problem Relation Age of Onset - Cataract Father - Hypertension Father - Cataract Mother - Hypertension Mother - Diabetes Mother Employer And Job Title: None on file Years Of Education Completed: Not specified Marital Status: Social History Substance Use Topics - Smoking status: Former Smoker Quit date: 12/11/2012 - Smokeless tobacco: Never Used - Alcohol use Yes Review of Systems: Review of Systems Physical Examination: BP 122/64 Pulse 88 Ht 6' 0 (1.83m) Wt 225 lb (102.1kg) BMI 30.51 kg/(m2). Physical Exam PROGRESS Observed: 11/07/2017 Status: COMPLETED Source: [place] 4:[address] [facility] REPOSITORY HNO ID: [id number] Author: Karma Dempsey Service: (none) Author Type: Physician Type: Progress Notes Filed: 11/07/2017 8:12 PM Note Text: [facility] Costa Ramsey is a 47 year old male here today for .recent H/O acute pancreatitis for which he was seen in [facility] and then seen in [facility]. Pain was sudden in onset, 8-9/10 in intensity, lasting for a day. No aggravating or relieving factors. No recent or past H/O alcohol abuse. No jaundice, itching, fever or chills.Pain has now resolved, but feels some degree of fullness in upper abdomen. Lipase - 4063 U/S- neg for GSD and ductal dilatation. Ct- scan showed pancreatic inflammation WBC-14 k CMP- Nl Current Outpatient Prescriptions: famotidine (PEPCID) 20 mg tablet hydrocortisone (ANUSOL-HC) 2.5 % rectal cream fenofibrate nanocrystallized (TRICOR) 145 mg tablet lisinopril (ZESTRIL, PRINIVIL) 20 mg tablet metoprolol succinate ER (TOPROL XL) 100 mg Tb24 potassium chloride ER (K-DUR, KLOR-CON) 20 mEq tablet fluticasone (FLONASE) 50 mcg/actuation nasal spray CETIRIZINE HCL/PSEUDOEPHEDRINE (ZYRTEC-D ORAL) Take by mouth. IBUPROFEN ORAL Take by mouth. ciprofloxacin HCl (CIPRO) 500 mg tablet VIAGRA 25 mg tablet ADVAIR DISKUS 250-50 mcg/dose dsdv Hydrochlorothiazide 12.5 mg capsule Omeprazole 40 mg capsule propranolol (INDERAL) 10 mg tablet Multivitamin capsule Take 1 capsule by mouth once daily. DOCOSAHEXANOIC ACID/EPA (FISH OIL ORAL) Take by mouth. No current facility-administered medications for this visit. ALLERGIES No Known Allergies Social History Substance Use Topics - Smoking status: Former Smoker Quit date: 12/11/2012 - Smokeless tobacco: Never Used - Alcohol use Yes PAST MEDICAL HISTORY Diagnosis Date - Dry eyes - Environmental and seasonal allergies - History of shingles - HTN (hypertension) - Hypercholesterolemia - Sleep apnea PAST SURGICAL HISTORY Procedure Laterality Date - COLONOSCOPY 04/13/2016 normal colon - HEMORRHOID SURGERY HX 2011 - REMOVE TONSIL AND ADENOI UNDER AGE 11 FAMILY HISTORY Problem Relation Age of Onset - Cataract Father - Hypertension Father - Cataract Mother - Hypertension Mother - Diabetes Mother REVIEW OF SYSTEMS Review of Systems PHYSICAL EXAM BP 122/64 Pulse 88 Ht 6' 0 (1.83m) Wt 225 lb (102.1kg) BMI 30.51 kg/(m2). Physical Exam Constitutional: He is oriented to person, place, and time. He appears well-developed and well-nourished. HENT: Head: Normocephalic and atraumatic. Right Ear: External ear normal. Left Ear: External ear normal. Nose: Nose normal. Mouth/Throat: Oropharynx is clear and moist. Eyes: Conjunctivae and EOM are normal. Pupils are equal, round, and reactive to light. Neck: Normal range of motion. Neck supple. Cardiovascular: Normal rate, regular rhythm, normal heart sounds and intact distal pulses. Pulmonary/Chest: Effort normal and breath sounds normal. Abdominal: Soft. Bowel sounds are normal. Musculoskeletal: Normal range of motion. Neurological: He is alert and oriented to person, place, and time. He has normal reflexes. Skin: Skin is warm and dry. Psychiatric: He has a normal mood and affect. His behavior is normal. Judgment and thought content normal. ASSESSMENT: Idiopathic acute pancreatitis without infection or necrosis (primary encounter diagnosis) PLAN: Office Visit on 11/07/17 -EGD Return in about 3 months (around 02/07/2018). Karma Dempsey DATE: 11/07/17 TIME: 8:12 PM CNOV Observed: 11/07/2017 Status: COMPLETED Source: [place] 2:30 PM [facility] REPOSITORY Office Visit ([facility]) COSTA RAMSEY ([id number]) 1970 M Date Time Provider Department 11/07/17 2:30 PM KARMA DEMPSEY [facility] During your visit today, we recorded the following information about you: Pulse Blood pressure Weight Height 88/minute 122/64 102.1 kg 1.829 m Isabel Junior Moran 11/07/2017 8:12 PM Signed Pancreatitis follow up HPI Costa Ramsey is a 47 year old male here today for follow up recent bout of pancreatitis Patient reports lipase was checked 11/01, was drawn at Dr. Akbar's office in [place], around 1000. Today he is feeling well, appetite is good, no abdominal pain today, steadily improving. Current Outpatient Prescriptions: ciprofloxacin HCl (CIPRO) 500 mg tablet famotidine (PEPCID) 20 mg tablet hydrocortisone (ANUSOL-HC) 2.5 % rectal cream fenofibrate nanocrystallized (TRICOR) 145 mg tablet lisinopril (ZESTRIL, PRINIVIL) 20 mg tablet metoprolol succinate ER (TOPROL XL) 100 mg Tb24 potassium chloride ER (K-DUR, KLOR-CON) 20 mEq tablet VIAGRA 25 mg tablet fluticasone (FLONASE) 50 mcg/actuation nasal spray ADVAIR DISKUS 250-50 mcg/dose dsdv Hydrochlorothiazide 12.5 mg capsule Omeprazole 40 mg capsule propranolol (INDERAL) 10 mg tablet Multivitamin capsule Take 1 capsule by mouth once daily. CETIRIZINE HCL/PSEUDOEPHEDRINE (ZYRTEC-D ORAL) Take by mouth. DOCOSAHEXANOIC ACID/EPA (FISH OIL ORAL) Take by mouth. IBUPROFEN ORAL Take by mouth. No current facility-administered medications for this visit. ALLERGIES Allergen Reactions - Neosporin (Neomycin* Other: See Comments Reaction to ophthalmic preparation - red swollen eyes Social History Substance Use Topics - Smoking status: Former Smoker Quit date: 12/11/2012 - Smokeless tobacco: Never Used - Alcohol use Yes PAST MEDICAL HISTORY Diagnosis Date - Dry eyes - Environmental and seasonal allergies - History of shingles - HTN (hypertension) - Hypercholesterolemia - Sleep apnea PAST SURGICAL HISTORY Procedure Laterality Date - REMOVE TONSIL AND ADENOI UNDER AGE 11 FAMILY HISTORY Problem Relation Age of Onset - Cataract Father - Hypertension Father - Cataract Mother - Hypertension Mother - Diabetes Mother REVIEW OF SYSTEMS Review of Systems Gastrointestinal: Positive for rectal pain. All other systems reviewed and are negative. PHYSICAL EXAM There were no vitals taken for this visit. Physical Exam Karma Dempsey MD 11/07/2017 8:12 PM Signed HPI Costa Ramsey is a 47 year old male here today for .recent H/O acute pancreatitis for which he was seen in [facility] and then seen in [facility]. Pain was sudden in onset, 8-9/10 in intensity, lasting for a day. No aggravating or relieving factors. No recent or past H/O alcohol abuse. No jaundice, itching, fever or chills.Pain has now resolved, but feels some degree of fullness in upper abdomen. Lipase - 4063 U/S- neg for GSD and ductal dilatation. Ct- scan showed pancreatic inflammation WBC-14 k CMP- Nl Current Outpatient Prescriptions: famotidine (PEPCID) 20 mg tablet hydrocortisone (ANUSOL-HC) 2.5 % rectal cream fenofibrate nanocrystallized (TRICOR) 145 mg tablet lisinopril (ZESTRIL, PRINIVIL) 20 mg tablet metoprolol succinate ER (TOPROL XL) 100 mg Tb24 potassium chloride ER (K-DUR, KLOR-CON) 20 mEq tablet fluticasone (FLONASE) 50 mcg/actuation nasal spray CETIRIZINE HCL/PSEUDOEPHEDRINE (ZYRTEC-D ORAL) Take by mouth. IBUPROFEN ORAL Take by mouth. ciprofloxacin HCl (CIPRO) 500 mg tablet VIAGRA 25 mg tablet ADVAIR DISKUS 250-50 mcg/dose dsdv Hydrochlorothiazide 12.5 mg capsule Omeprazole 40 mg capsule propranolol (INDERAL) 10 mg tablet Multivitamin capsule Take 1 capsule by mouth once daily. DOCOSAHEXANOIC ACID/EPA (FISH OIL ORAL) Take by mouth. No current facility-administered medications for this visit. ALLERGIES No Known Allergies Social History Substance Use Topics - Smoking status: Former Smoker Quit date: 12/11/2012 - Smokeless tobacco: Never Used - Alcohol use Yes PAST MEDICAL HISTORY Diagnosis Date - Dry eyes - Environmental and seasonal allergies - History of shingles - HTN (hypertension) - Hypercholesterolemia - Sleep apnea PAST SURGICAL HISTORY Procedure Laterality Date - COLONOSCOPY 04/13/2016 normal colon - HEMORRHOID SURGERY HX 2011 - REMOVE TONSIL AND ADENOI UNDER AGE 11 FAMILY HISTORY Problem Relation Age of Onset - Cataract Father - Hypertension Father - Cataract Mother - Hypertension Mother - Diabetes Mother REVIEW OF SYSTEMS Review of Systems PHYSICAL EXAM BP 122/64 Pulse 88 Ht 6' 0 (1.83m) Wt 225 lb (102.1kg) BMI 30.51 kg/(m2). Physical Exam Constitutional: He is oriented to person, place, and time. He appears well-developed and well-nourished. HENT: Head: Normocephalic and atraumatic. Right Ear: External ear normal. Left Ear: External ear normal. Nose: Nose normal. Mouth/Throat: Oropharynx is clear and moist. Eyes: Conjunctivae and EOM are normal. Pupils are equal, round, and reactive to light. Neck: Normal range of motion. Neck supple. Cardiovascular: Normal rate, regular rhythm, normal heart sounds and intact distal pulses. Pulmonary/Chest: Effort normal and breath sounds normal. Abdominal: Soft. Bowel sounds are normal. Musculoskeletal: Normal range of motion. Neurological: He is alert and oriented to person, place, and time. He has normal reflexes. Skin: Skin is warm and dry. Psychiatric: He has a normal mood and affect. His behavior is normal. Judgment and thought content normal. ASSESSMENT: Idiopathic acute pancreatitis without infection or necrosis (primary encounter diagnosis) PLAN: Office Visit on 11/07/17 -EGD Return in about 3 months (around 02/07/2018). Karma Dempsey DATE: 11/07/17 TIME: 8:12 PM Karma Dempsey MD 11/07/2017 8:12 PM Signed HPI:Costa Ramsey is a 47 year old male who presents for Pancreatitis. PAST MEDICAL HISTORY Diagnosis Date - Dry eyes - Environmental and seasonal allergies - History of shingles - HTN (hypertension) - Hypercholesterolemia - Sleep apnea PAST SURGICAL HISTORY Procedure Laterality Date - COLONOSCOPY 04/13/2016 normal colon - HEMORRHOID SURGERY HX 2012 - REMOVE TONSIL AND ADENOI UNDER AGE 11 Allergies: ALLERGIES No Known Allergies Medications: famotidine (PEPCID) 20 mg tablet hydrocortisone (ANUSOL-HC) 2.5 % rectal cream fenofibrate nanocrystallized (TRICOR) 145 mg tablet lisinopril (ZESTRIL, PRINIVIL) 20 mg tablet metoprolol succinate ER (TOPROL XL) 100 mg Tb24 potassium chloride ER (K-DUR, KLOR-CON) 20 mEq tablet fluticasone (FLONASE) 50 mcg/actuation nasal spray CETIRIZINE HCL/PSEUDOEPHEDRINE (ZYRTEC-D ORAL) Take by mouth. IBUPROFEN ORAL Take by mouth. ciprofloxacin HCl (CIPRO) 500 mg tablet VIAGRA 25 mg tablet ADVAIR DISKUS 250-50 mcg/dose dsdv Hydrochlorothiazide 12.5 mg capsule Omeprazole 40 mg capsule propranolol (INDERAL) 10 mg tablet Multivitamin capsule Take 1 capsule by mouth once daily. DOCOSAHEXANOIC ACID/EPA (FISH OIL ORAL) Take by mouth. FAMILY HISTORY Problem Relation Age of Onset - Cataract Father - Hypertension Father - Cataract Mother - Hypertension Mother - Diabetes Mother Employer And Job Title: None on file Years Of Education Completed: Not specified Marital Status: Social History Substance Use Topics - Smoking status: Former Smoker Quit date: 12/11/2012 - Smokeless tobacco: Never Used - Alcohol use Yes Review of Systems: Review of Systems Physical Examination: BP 122/64 Pulse 88 Ht 6' 0 (1.83m) Wt 225 lb (102.1kg) BMI 30.51 kg/(m2). Physical Exam Karma Dempsey MD 11/07/2017 8:12 PM Signed HPI:Costa Ramsey is a 47 year old male who presents for Pancreatitis. Was seen in ER on 10/26/17, after 1 day of sever epigastric pain. Lipase level was 4085, then down to 2000, then 1000 range. Has drink only only on holidays- a glass or two. Never a heavy drinker. U/S and MRI and CT scan showed no gallstones or mass lesions. CT and MRI showed fatty liver and pancreatitis, but no gallstones or dilated ducts. LFTs Nl. PAST MEDICAL HISTORY Diagnosis Date - Dry eyes - Environmental and seasonal allergies - History of shingles - HTN (hypertension) - Hypercholesterolemia - Sleep apnea PAST SURGICAL HISTORY Procedure Laterality Date - COLONOSCOPY 04/13/2016 normal colon - HEMORRHOID SURGERY HX 2012 - REMOVE TONSIL AND ADENOI UNDER AGE 11 Allergies: ALLERGIES No Known Allergies Medications: famotidine (PEPCID) 20 mg tablet hydrocortisone (ANUSOL-HC) 2.5 % rectal cream fenofibrate nanocrystallized (TRICOR) 145 mg tablet lisinopril (ZESTRIL, PRINIVIL) 20 mg tablet metoprolol succinate ER (TOPROL XL) 100 mg Tb24 potassium chloride ER (K-DUR, KLOR-CON) 20 mEq tablet fluticasone (FLONASE) 50 mcg/actuation nasal spray CETIRIZINE HCL/PSEUDOEPHEDRINE (ZYRTEC-D ORAL) Take by mouth. IBUPROFEN ORAL Take by mouth. ciprofloxacin HCl (CIPRO) 500 mg tablet VIAGRA 25 mg tablet ADVAIR DISKUS 250-50 mcg/dose dsdv Hydrochlorothiazide 12.5 mg capsule Omeprazole 40 mg capsule propranolol (INDERAL) 10 mg tablet Multivitamin capsule Take 1 capsule by mouth once daily. DOCOSAHEXANOIC ACID/EPA (FISH OIL ORAL) Take by mouth. FAMILY HISTORY Problem Relation Age of Onset - Cataract Father - Hypertension Father - Cataract Mother - Hypertension Mother - Diabetes Mother Employer And Job Title: None on file Years Of Education Completed: Not specified Marital Status: Social History Substance Use Topics - Smoking status: Former Smoker Quit date: 12/11/2012 - Smokeless tobacco: Never Used - Alcohol use Yes Review of Systems: Review of Systems Physical Examination: BP 122/64 Pulse 88 Ht 6' 0 (1.83m) Wt 225 lb (102.1kg) BMI 30.51 kg/(m2). Physical Exam Constitutional: He is oriented to person, place, and time. He appears well-developed and well-nourished. HENT: Head: Normocephalic and atraumatic. Right Ear: External ear normal. Left Ear: External ear normal. Nose: Nose normal. Mouth/Throat: Oropharynx is clear and moist. Eyes: Conjunctivae and EOM are normal. Pupils are equal, round, and reactive to light. Neck: Normal range of motion. Neck supple. Cardiovascular: Normal rate, regular rhythm, normal heart sounds and intact distal pulses. Pulmonary/Chest: Effort normal and breath sounds normal. Abdominal: Soft. Bowel sounds are normal. Musculoskeletal: Normal range of motion. Neurological: He is alert and oriented to person, place, and time. He has normal reflexes. Skin: Skin is warm and dry. Psychiatric: He has a normal mood and affect. His behavior is normal. Judgment and thought content normal. ASSESSMENT: Idiopathic acute pancreatitis without infection or necrosis (primary encounter diagnosis) PLAN: Office Visit on 11/07/17 -EGD Return in about 2 years (around 11/08/2019). Karma Dempsey DATE: 11/07/17 TIME: 4:36 PM Referring Provider: SELF [200] Allergies As of Date: 11/07/2017 (No Known Allergies) Date Reviewed: 11/07/2017 Reviewed by: Karma Dempsey - Fully Assessed Reason for Visit: Pancreatitis [581] Primary Visit Diagnosis:Idiopathic acute pancreatitis without infection or necrosis [K85.00] Order(s):EGD [[id number]] Order #: [id number] FUTURE Prescriptions as of 11/07/2017 Sig: FAMOTIDINE 20 MG TABLET HYDROCORTISONE 2.5 % TOPICAL * FENOFIBRATE NANOCRYSTALLIZED * LISINOPRIL 20 MG TABLET METOPROLOL SUCCINATE ER 100 M* POTASSIUM CHLORIDE ER 20 MEQ * FLUTICASONE 50 MCG/ACTUATION * ZYRTEC-D ORAL Take by mouth. IBUPROFEN ORAL Take by mouth. CIPROFLOXACIN 500 MG TABLET VIAGRA 25 MG TABLET ADVAIR DISKUS 250 MCG-50 MCG/* HYDROCHLOROTHIAZIDE 12.5 MG C* OMEPRAZOLE 40 MG CAPSULE,JENNIFER* PROPRANOLOL 10 MG TABLET MULTIVITAMIN CAPSULE Take 1 capsule by mouth once * FISH OIL ORAL Take by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 gaviscon. He was transferred to [facility] for pancreatitis. Past Medical History Past Medical History (Chronic Problems): Chronic Problems (Last Updated 09/25/17 @ 14:09 by Melody Walsh) Hypertension (Chronic) Allergies No Known Allergies Allergy (Verified 09/25/17 14:14) Home Medications: Ambulatory Orders Medication Instructions Recorded cetirizine 5 mg-pseudoephedrine ER 1 tab PO DAILY 09/25/17 Surgical History: adenoidectomy, tonsillectomy Psychiatric History: No pertinent psych hx Smoking Status: Former smoker Alcohol: None Drugs: None Review of Systems Constitutional: Denies: Chills, Fever, Weight Change HEENT: Denies: Head Aches, Sinus Congestion, Sinus Drainage Cardiovascular: Denies: Chest Pain, Palpitations Respiratory: Denies: Cough, Shortness of breath at rest, Sputum production Gastrointestinal: Reports: Abdominal Pain. Denies: Nausea, Vomiting Genitourinary: Denies: Dysuria Musculoskeletal: Denies: Joint Pain, Joint Tenderness Skin: Denies: Rash, Wounds Neurological: Denies: Numbness, Tingling, Focal weakness Psychiatric: Denies: Anxiety, Depression, Homicidal Ideations, Suicidal Ideations Hematologic/ Lymphatic: Denies: Easy Bruising, Easy Bleeding VTE Information - Inpt Only VTE Present on Admission: No VTE Mechan Device Prophylaxis: SCD's VTE Pharm Prophylaxis ordered?: Yes Patient Problems: Active and Suspected Problems (Last Updated 09/25/17 @ 14:09 by Melody Walsh) Pancreatitis (Acute) - Physical Exam General: Alert, Oriented x3, Cooperative HEENT: Atraumatic, PERRLA, EOMI, Normocephalic Neck: Supple, No JVD, Negative Carotid Bruits Lungs: Clear to auscultation, Normal air movement Cardiovascular: Regular rate, No murmurs Abdomen: Bowel Sounds Present, Soft, Non Tender Extremities: No edema, Capillary Refill Less than 3 Seconds Skin: No rashes, No breakdown Musculoskeletal: No Tenderness to Palpation of Joints or Extremities Neurological: Cranial nerves II-XII grossly intact Psych/Mental Status: Normal Affect, Appropriate Vital Signs Temp Pulse Resp BP Pulse Ox 97.5 F L 78 18 129/73 H 98 10/27/17 02:50 10/27/17 02:50 10/27/17 02:50 10/27/17 02:50 10/27/17 02:50 Oxygen Delivery Method Room Air Weight: 100.3 kg Body Mass Index (BMI) 29.9 Assessment/Plan Active and Suspected Problems (Last Updated 09/25/17 @ 14:09 by Melody Walsh) Pancreatitis (Acute) 47 year old male w/ h/o HTN, lipidemia and JAS admitted for pancreatitis. 1) Pancreatitis: CT disclosed acute pancreatitis. Lipase 4K. Will hydrate. Pain control with IV morphine. Serial lipase until trending down. Will get FLP. Will also get EtOH level. NPO. 2) Mild NITESH: Most likely azotemia. Cr 1.26 Hydration and will consider further workup if no improvement. 3) Chronic issues: Lipidemia, JAS and HTN: Resume home meds. 4) Prophylaxis: SCD / heparin 10/27/17316 <Electronically signed by Rajendra Mcmillan MD> Date Rajendra Mcmillan MD Cosigner Signature: Date (if applicable) CC: Gavin Romero MD; Rajendra Mcmillan MD Signed ED NOTE Observed: 10/27/2017 Status: COMPLETED Source: [place] 12:26 AM [facility] REPOSITORY HNO ID: [id number] Author: Izzy Pavon) ALDO Musa Service: Emergency Medicine Author Type: Registered Nurse Type: ED Notes Filed: 10/27/2017 12:27 AM Note Text: Called [facility], spoke with domenica Hayward 30 min. ED NOTE Observed: 10/27/2017 Status: COMPLETED Source: [place] 12:21 AM [facility] REPOSITORY HNO ID: [id number] Author: Izzy Pavon) ALDO Musa Service: Emergency Medicine Author Type: Registered Nurse Type: ED Notes Filed: 10/27/2017 12:26 AM Note Text: Spoke with Deedee, nursing maintenance and custodian supervisor at [facility], bed 315 given, she states they will call you for report ED NOTE Observed: 10/27/2017 Status: COMPLETED Source: [place] 12:03 AM [facility] REPOSITORY HNO ID: [id number] Author: Izzy Musa RN Service: Emergency Medicine Author Type: Registered Nurse Type: ED Notes Filed: 10/27/2017 12:28 AM Note Text: Hospitalist, Dr. Mcmillan, from [facility] called back to speak with Dr. Castañeda, Dr. Mcmillan accepted pt for transport ED NOTE Observed: 10/26/2017 Status: COMPLETED Source: [place] 11:55 PM [facility] REPOSITORY HNO ID: [id number] Author: Matilda KwanRn) ALDO Carrero Service: Emergency Medicine Author Type: Registered Nurse Type: ED Notes Filed: 10/26/2017 11:55 PM Note Text: Patient informed: the name of medication, why we are giving it, possible side effects, what they may expect to feel, and was offered a chance to ask questions, prior to the administration of dilaudid ED NOTE Observed: 10/26/2017 Status: COMPLETED Source: [place] 11:52 PM [facility] REPOSITORY HNO ID: [id number] Author: Izzy KwanRn) ALDO Musa Service: Emergency Medicine Author Type: Registered Nurse Type: ED Notes Filed: 10/26/2017 11:55 PM Note Text: Spoke with nursing maintenance and custodian supervisor Deedee at [facility] about transfer CT ABDOMEN AND PELVIS Observed: 10/26/2017 Status: F Source: [facility] WITH CONTRAST 11:25 PM [facility] REPOSITORY Performed at [facility] APPROVED BY: RAHEEL MCMAHON MD EXAMINATION: CT ABDOMEN AND PELVIS WITH IV CONTRAST HISTORY: Intraoperative abdominal pain for 2 days. TECHNIQUE: CT of the abdomen and pelvis was performed using standard technique, scanning from just above the dome of the diaphragm to the symphysis pubis. M: CTAP_1 Contrast: IV: 150 ml of Omnipaque 300 Oral: None CT Radiation dose: Integrated Dose-length product (DLP) for this visit = 751 mGy*cm. COMPARISON: 09/14/2011 RESULT: Outside Salesperson: Unremarkable Lower Thorax: Dependent atelectasis. Liver: No focal hepatic lesion. Biliary: The gallbladder is unremarkable. No biliary dilatation. Spleen: No abnormality identified. Pancreas: Homogeneous enhancement of the pancreatic parenchyma. There are inflammatory changes surround the pancreatic head and uncinate process. No ductal dilatation. There are a few mildly prominen t peripancreatic lymph nodes, likely reactive. Adrenals: No abnormality identified. Kidneys: No focal enhancing lesion or hydronephrosis. Vasculature: Normal caliber aorta with patent proximal branch vessels. There is no significant atherosclerotic calcification. The portal, splenic, superior mesenteric and renal veins appear to be patent. Mesentery/Peritoneum/Lymph nodes: No free intraperitoneal air or fluid. No lymphadenopathy identified by CT size criteria. Pelvis: No mass or lymphadenopathy identified. GI tract: Evaluation of the enteric tract is limited without contrast. No evidence of bowel obstruction. The visualized appendix demonstrates normal caliber without CT evidence of localized inflammat ory change. Moderate amount of stool within the right hemicolon. Body wall / Subcutaneous tissues: No acute abnormality identified. Musculoskeletal: No acute abnormality. IMPRESSION: Findings consistent with acute pancreatitis. See details. Consider follow-up to ensure resolution. Details and incidental findings as discussed. ED NOTE Observed: 10/26/2017 Status: COMPLETED Source: [place] 10:48 PM [facility] REPOSITORY HNO ID: [id number] Author: Matilda KwanRn) ALDO Carrero Service: Emergency Medicine Author Type: Registered Nurse Type: ED Notes Filed: 10/26/2017 10:48 PM Note Text: Patient informed: the name of medication, why we are giving it, possible side effects, what they may expect to feel, and was offered a chance to ask questions, prior to the administration of morphine,protonix and zofran ED PROV NOTE Observed: 10/26/2017 Status: COMPLETED Source: [place] 10:45 PM [facility] REPOSITORY HNO ID: [id number] Author: Callie Lira DO Service: Emergency Medicine Author Type: Physician Type: ED Provider Notes Filed: 10/27/2017 12:08 AM Note Text: ED Provider Note Patient Name: Costa Ramsey SERVICE DATE: 10/26/17 History Patient presents with: Abdominal Pain HPI Comments: [place] 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 Came home and ate, feel asleep waking up to worse pain, thought he laid down to soon after eating. Tried Gaviscon without relief. Typically this helps him. No nausea or vomiting. He has had a regular BM. Patient is a 47 year old male presenting with abdominal pain. History provided by: Patient signal manager used: No Abdominal Pain Pain location: Epigastric Pain quality comment: Sore Pain radiates to: Does not radiate Pain severity: Moderate Onset quality: Gradual Duration: 36 hours Timing: Constant Progression: Unchanged Chronicity: New Context: not awakening from sleep, not eating, not suspicious food intake and not trauma Relieved by: Nothing Worsened by: Nothing Ineffective treatments: Bowel activity and eating (gaviscon) Associated symptoms: no chest pain, no chills, no constipation, no cough, no diarrhea, no dysuria, no fever, no hematemesis, no hematochezia, no hematuria, no melena, no nausea, no shortness of breath, no sore throat and no vomiting PAST MEDICAL HISTORY Diagnosis Date - Dry eyes - Environmental and seasonal allergies - History of shingles - HTN (hypertension) - Hypercholesterolemia - Sleep apnea PAST SURGICAL HISTORY Procedure Laterality Date - REMOVE TONSIL AND ADENOI UNDER AGE 11 FAMILY HISTORY Problem Relation Age of Onset - Cataract Father - Hypertension Father - Cataract Mother - Hypertension Mother - Diabetes Mother Social History Social History Main Topics - Smoking status: Former Smoker Quit date: 12/11/2012 - Smokeless tobacco: Never Used - Alcohol use Yes - Drug use: No - Sexual activity: Not Asked ALLERGIES Allergen Reactions - Neosporin (Neomycin* Other: See Comments Reaction to ophthalmic preparation - red swollen eyes Review of Systems Constitutional: Negative for chills and fever. HENT: Negative for sore throat and trouble swallowing. Eyes: Negative for photophobia and visual disturbance. Respiratory: Negative for cough and shortness of breath. Cardiovascular: Negative for chest pain. Gastrointestinal: Positive for abdominal pain. Negative for anal bleeding, blood in stool, constipation, diarrhea, hematemesis, hematochezia, melena, nausea and vomiting. Genitourinary: Negative for dysuria, flank pain and hematuria. Musculoskeletal: Negative for back pain and neck pain. Skin: Negative for rash and wound. Allergic/Immunologic: Negative for immunocompromised state. Neurological: Negative for dizziness and weakness. Psychiatric/Behavioral: Negative for agitation and confusion. Physical Exam BP 148/65 Pulse 92 Temp (Src) 98.4 (Temporal Artery) Resp 18 Ht 6' 0 (1.83m) Wt 227 lb (103.0kg) SpO2 100% BMI 30.78 kg/(m2). Physical Exam Constitutional: He is oriented to person, place, and time. He appears well-developed and well-nourished. No distress. HENT: Head: Normocephalic and atraumatic. Mouth/Throat: Oropharynx is clear and moist. Eyes: Conjunctivae and EOM are normal. Pupils are equal, round, and reactive to light. Right eye exhibits no discharge. Left eye exhibits no discharge. No scleral icterus. Neck: Normal range of motion. No JVD present. Cardiovascular: Normal rate, regular rhythm and intact distal pulses. Pulmonary/Chest: Effort normal and breath sounds normal. No stridor. No respiratory distress. He has no wheezes. Abdominal: Soft. Bowel sounds are normal. He exhibits no distension. There is tenderness in the right upper quadrant and epigastric area. There is positive Miose's sign. There is no rigidity, no rebound, no guarding, no CVA tenderness and no tenderness at McBurney's point. Neurological: He is alert and oriented to person, place, and time. Skin: Skin is warm and dry. No rash noted. He is not diaphoretic. Psychiatric: He has a normal mood and affect. His behavior is normal. Nursing note and vitals reviewed. Diagnostic Testing ED Labs Ordered and Reviewed COMPREHENSIVE METABOLIC PANEL (AK,AV,EU,FV,HL,RUSSELL,MM,SP) - Abnormal; Notable for the following: Result Value Ref Range Glucose 105 (*) 70 - 99 mg/dL Creatinine 1.26 (*) 0.67 - 1.17 mg/dL All other components within normal limits LIPASE BLOOD (AK,AV,EU,FV,HL,RUSSELL,MM,SP) - Abnormal; Notable for the following: Lipase 4063 (*) 73 - 393 U/L All other components within normal limits CBC + AUTO DIFF (AK,AV,EU,FV,HL,RUSSELL,MM,SP) - Abnormal; Notable for the following: WBC 14.1 (*) 4.8 - 10.8 thou/cmm Seg. Neut. # 9.83 (*) 3.00 - 5.67 thou/cmm Monocyte # 1.38 (*) 0.20 - 1.00 thou/cmm All other components within normal limits TROPONIN I (AK) LACTIC ACID / LACTATE (AK,AV,EU,FV,HL,RUSSELL,MM,SP) URINALYSIS (AV,EU,FV,HL,RUSSELL,MM,SP) MDRD GFR Procedures Medical Decision Making / ED Course ED Course Labs, imaging ordered. Time: 2325 pm Patient's pain is improving, but still present Time: 2327 Discussed labs showing pancreatitis. He denies any alcohol use recently, last drink was a few weeks ago. Still awaiting CT scan result. I discussed admission, patient deciding on what hospital he wants to be transferred to. Time: 2347 pm I discussed results. Patient wants to go to [facility] for admission. Time: 1207 am I spoke with Dr. Barnett, hospitalist at [facility], he is accepting. Encounter Diagnosis ICD-10-CM 1. Acute pancreatitis without infection or necrosis, unspecified pancreatitis type K85.90 Plan The Patient was TRANSFERRED to: [facility] Condition at time of disposition: stable SIGNATURE: Callie Lira DO EKG Interpretation: RHYTHM: Normal sinus rhythm at 95 beats per minute AXIS: Normal axis INTERVALS: Normal LA interval QRS COMPLEX: Normal ST SEGMENT: Normal ST-T segments QT INTERVAL: Normal COMPARED WITH PRIOR: None available aCllie Lira DO 10/27/17 0008 HEMOGRAM/DIFF Collected: 10/26/2017 Status: F Source: [facility] 10:35 PM [facility] REPOSITORY TYPE CODE TESTS RESULT OUT OF REFERENCE UNITS RANGE LAB LWBC(LOINC 4.8-10.8 thou/cmm ) WBC High 14.1 LAB LRBC(LOINC 4.60-6.20 mil/cmm ) RBC 5.25 LAB LHGB(LOINC 14.0-18.0 g/dL ) Hgb 15.2 LAB LHCT(LOINC 42.0-52.0 % ) Hct 43.7 LAB LMCV(LOINC 80.0-94.0 fl ) MCV 83.2 LAB LMCH(LOINC 27.0-31.0 pg ) MCH 29.0 LAB LMCHC(LOIN 32.0-36.0 % C) MCHC 34.8 LAB LRDW(LOINC 11.5-15.9 % ) RDW 12.9 LAB LPLT(LOINC 150-400 thou/cmm ) Platelet 366 LAB LMPV(LOINC 7.1-10.5 fl ) MPV 9.2 LAB LSEGT(LOIN % C) Seg Neutrophil 69.7 LAB LLYMP(LOIN % C) Lymphocyte 19.2 LAB LMNO(LOINC % ) Monocyte 9.8 LAB BOY(LOINC % ) Eosinophil 1.0 LAB LBASO(LOIN % C) Basophil 0.3 LAB LSEGN(LOIN 3.00-5.67 thou/cmm C) Abs. High Neut 9.83 LAB LLYMN(LOIN 1.50-3.65 thou/cmm C) Abs. Lymph 2.71 LAB LMONN(LOIN 0.20-1.00 thou/cmm C) Abs. High Boundary 1.38 LAB LEOSN(LOIN 0.00-0.41 thou/cmm C) Abs. Eosin 0.14 LAB LBASN(LOIN 0.00-0.08 thou/cmm C) Abs. Baso 0.04 Performed By: #### LCBCD #### [place] [address] TROPONIN I Collected: 10/26/2017 Status: F Source: [address] [facility] REPOSITORY TYPE CODE TESTS RESULT OUT OF REFERENCE UNITS RANGE LAB LTRP(LOINC) <=0.07 ng/mL Troponin I <0.03 Performed By: #### LTRP #### [place] [address] LACTIC ACID Collected: 10/26/2017 Status: F Source: [address] [facility] REPOSITORY TYPE CODE TESTS RESULT OUT OF REFERENCE UNITS RANGE LAB LLA(LOINC) 0.4-2.0 mEq/L Lactic acid 0.8 Performed By: #### LLA #### [place] [address] COMPREHENSIVE PANEL Collected: 10/26/2017 Status: F Source: [address] [facility] REPOSITORY TYPE CODE TESTS RESULT OUT OF REFERENCE UNITS RANGE LAB REFRIGERATOR REPAIRMAN(LOINC) 136-145 mEq/L Sodium Blood 137 LAB LK(LOINC) 3.5-5.1 mEq/L Potassium Blood 4.0 LAB LCL(LOINC) 98-107 mEq/L Chloride Blood 102 LAB LCO2(LOINC 21-32 mEq/L ) CO2 Blood 27 LAB LGLU(LOINC 70-99 mg/dL ) Glucose High Blood 105 LAB LBUN(LOINC 7-25 mg/dL ) BUN Blood 16 LAB LCREA(LOIN 0.67-1.17 mg/dL C) Creatinine High Blood 1.26 LAB LCA(LOINC) 8.5-10.1 mg/dL Calcium Blood 10.0 LAB LALB(LOINC 3.4-5.0 g/dL ) Albumin Blood 4.1 LAB LTP(LOINC) 6.4-8.2 g/dL Total Protein 8.2 LAB LAST(LOINC 15-37 U/L ) AST-SGOT Blood 33 LAB LALT(LOINC 14-63 U/L ) ALT-SGPT Blood 53 LAB LALKP(LOIN 46-116 U/L C) Alk Phosphatase 111 LAB LBILT(LOIN 0.2-1.0 mg/dL C) Total Bilirubin 0.6 LAB LANGP(LOIN 8-20 C) Anion Gap 12 LAB LBNCR(LOIN 10-20 C) BUN/Creatinine 13 Ratio Performed By: #### LP14 #### [facility] [address] [place] [address] MDRD EGFR Collected: 10/26/2017 Status: F Source: [facility] 10:35 PM [facility]ALTH SYSTEM REPOSITORY TYPE CODE TESTS RESULT OUT OF RANGE REFERENCE UNITS LAB LGFRF(LOINC >60mL/min/1.73m ) 2 eGFR >60 Result Comment: If the patient is , multiply the result by 1.210. Performed By: #### LGFR #### [facility] [address] [place] [address] LIPASE BLOOD Collected: 10/26/2017 Status: F Source: [facility] 10:35 PM [facility] SYSTEM REPOSITORY TYPE CODE TESTS RESULT OUT OF REFERENCE UNITS RANGE LAB LLIP(LOINC) 73-393 U/L High Lipase Blood 4063 Performed By: #### LLIP #### [place] [address] PROGRESS Observed: 10/23/2017 Status: COMPLETED Source: [place] 3:52 PM [facility] REPOSIT[facility] O ID: [id number] Author: Latia (Rn) ALDO Lujan Service: (none) Author Type: Registered Nurse Type: Progress Notes Filed: 10/23/2017 3:59 PM Note Text: ASSESSMENT/PLAN: 1. Dry eye syndrome of bilateral lacrimal glands - ICD9: 375.15, ICD10: H04.123 (primary diagnosis) Continue using Systane Ultra tears one drop both eyes up to four times daily as needed 2. Refractive error - ICD9: 367.9, ICD10: H52.7 Glass prescription issued Return 1 year complete with peer support specialist closer to his home Latia Lujan RN The documentation for this note was completed by Latia Lujan RN acting as a scribe for Mick Hicks MD. 10/23/2017 3:53 PM. The documentation recorded by the scribe accurately reflects the service I personally performed and the decisions made by me. I have confirmed and edited as necessary the relevant ophthalmic history, ROS, and the neuro exam findings as obtained by others. I have seen and examined Costa Ramsey I have discussed the case and the management of this patient's care with the Resident/Fellow, if applicable. I also have reviewed and agree with the assessment and plan as stated above and agree with all of its relevant components. Mick Hicks MD SURGERY VISIT REPORT Observed: 09/26/2017 Status: F Source: [place] 9:11 AM [facility] [address] [facility] [place] [address] OFFICE VISIT Date of Service: 09/25/17 MR#: [id number] Acct: [id number] Name: COSTA RAMSEY Rep #: [id number] : 1970 Provider: Mark Lutz MD Age/Sex: 47/M Location: [facility] Status: Signed Intake Vital Signs09/25/17 Height 6 ft 09/25/17 Weight: 228 lb 09/25/17 Body Mass Index (BMI) 30.9 09/25/17 Blood Pressure 111/75 09/25/17 Blood Pressure Location Lt brachial 09/25/17 Respiratory Rate 14 Intake Visit Reasons: HEMORRHOIDS AND RECTAL PAIN [place] Required: No Is patient in pain?: Yes (Rectum) Pain scale (1-10): 2 Allergies No Known Allergies Allergy (Verified 09/25/17 14:14) Medications ascorbic acid (vitamin C) PO 09/25/17 [History Confirmed 09/25/17] cetirizine 5 mg-pseudoephedrine ER 120 mg tablet,extended release,12hr 1 tab PO ONCE 09/25/17 [History Confirmed 09/25/17] cholecalciferol (vitamin D3) PO 09/25/17 [History Confirmed 09/25/17] fenofibrate PO 09/25/17 [History Confirmed 09/25/17] lactobacillus combination no.8 PO 09/25/17 [History Confirmed 09/25/17] lisinopril PO 09/25/17 [History Confirmed 09/25/17] metoprolol tartrate PO 09/25/17 [History Confirmed 09/25/17] multivitamin tablet 1 tab PO QAM 09/25/17 [History Confirmed 09/25/17] potassium chloride ER 20 mEq tablet,extended release 20 meq PO QDAY 09/25/17 [History Confirmed 09/25/17] PFSH Medical History Sleep apnea (Acute) Hemorrhoids (Acute) Hypertension (Chronic) Back problem (Acute) Surgical History Hemorrhoid (Acute) S/P tonsillectomy and adenoidectomy (Acute) Family History Mother Diabetes Hypertension Cancer skin Father Heart disease Cancer Skin Multiple myeloma Hypertension Social History Smoking Status: Former smoker second hand exposure: No alcohol intake: current alcohol intake frequency: holidays/special occasions only substance use type: does not use caffeine: Yes what type of physical activity do you participate in: other frequency: does not exercise seatbelt use: always HPI HPI HPI: COSTA RAMSEY, is a 47 M who presents to the office today for rectal pain. The patient reports that he has been having 2 weeks of rectal pain especially on the left side. He is also having difficulty urinating. He reports that he had hemorrhoid artery ligation by Dr. Wayne in [place] in 2011. He reports he had his last colonoscopy in. He has no blood in his stool. He says that defecating has some pain but not much. He said the pain is worst with standing. He also reports that he is having mucousy drainage from the rectal area. ROS General General: No weight change or fatigue Musc Musculoskeletal: No back problems Cardio Cardiovascular: No murmur, pacemaker, heart disease or high blood pressure Psych Psychiatric: No depression or anxiety Resp Respiratory: No shortness of breath, No sleep apnea, No wheezing Gastro Gastrointestinal: No abdominal pain, No blood in stool, Yes hemorrhoids, No constipation, No diarrhea, No nausea or vomiting Angel Luis Hematologic: No blood thinners, No blood disorders, No bleeding Exam Const General: cooperative, healthy appearing, comfortable Orientation: alert, oriented x3 Resp Effort AND Inspection: normal respiratory effort Auscultation: clear to auscultation bilaterally Cardio Rate: regular rate Rhythm: regular rhythm Heart Sounds: no murmurs GI Inspection: normal to inspection Palpation: soft, nontender Other: On rectal exam the patient has a painful hemorrhoid on the left side. The patient also has a posterior fistula opening at the 12 o'clock position. This opening is about the size of the tip of my pinky finger. Assessment AND Plan Problems 1. Hemorrhoids, unspecified hemorrhoid type K64.9 2. 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 The patient has a tender left hemorrhoid. The patient also has a posterior fistula opening which he reports mucus drainage coming from. I told the patient that I did not feel thrombosis of the hemorrhoid but he says he feels something hard inside. The only way to get a better look and to excise the hemorrhoid would be exam under anesthesia. I also told him that it is unusual that he is having problems urinating I would recommend him seeing a urologist for this. I also told him that the pain may not be coming from his hemorrhoid but he felt that when I was doing my physical exam that it was very tender at that point. There is no sign of perirectal abscess. The patient does have a fistula opening which she reports drainage from I told him that I could do a fistulotomy for this and it was scarred down. I also discussed the possibility that this pain could be prostatitis or something deeper inside as he says it is traveling up his abdomen. I discussed that doing hemorrhoidectomy and fistulotomy may help his pain but it also may not. 2. I discussed hemorrhoidectomy and fistulotomy with the patient in detail. I also discussed the possibility of a seton suture if the fistula travels deep to the anal muscles. I discussed the risks of bleeding, infection, urinary retention, and the small risk of incontinence. I also described that this is a painful procedure which will require a long time off work. The patient agrees and wants to check with his insurance company first to make sure that it is covered. If it is he will call us and schedule a hemorrhoidectomy and fistulotomy. 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 09/26/17 0911 <Electronically signed by Mark Lutz MD> Date Mark Lutz MD Cosigner Signature: Date (if applicable) CC: Gavin Romero MD ALLERGIES ALLERGIES DATE TYPE / CODE NAME / CODE REACTION SEVERITY SOURCE 09/25/2017 Drug No Known Unknown [facility] Allergy/416 Allergies/Z55548 Hospital 254355(SNOM 0388(RXNORM) Repository ED CT) 07/13/2015 DRUG/798750 NEOSPORIN OTHER: SEE C [facility] 003(SNOMED (NEOMYCIN-POLYMY [place]) X) Repository Drug NO KNOWN [facility] Class/38856 ALLERGIES [facility] 1003(SNOMED Repository CT) ENCOUNTERS ENCOUNTERS ADMIT/DISCHARGE ACCOUNT ADMITTING ENCOUNTER LOCATION SOURCE NUMBER CLASS 06/13/2018 [id number] [facility] ing:MFPLAB Repository 06/07/2018 [id number] [facility] ing:MTLAB Repository 03/19/2018/03/19/20 [id number] Ambulatory [address] Repository 02/11/2018 [id number] [facility] ing:LAB.FUTUR Repository E 12/05/[id number] [facility] Repository 12/05/2017 [id number] [facility] ing:LAB.FUTUR Repository E 11/29/2017 [id number] [facility] ing:MTLAB Repository 11/27/2017 [id number] Ambulatory [address] [place] [address] Repository 11/26/2017 [id number] Ambulatory [facility] ing:LAB Repository 11/07/2017/11/13/19 [id number] Ambulatory [address] Repository 11/01/2017 [id number] Ambulatory [facility] ing:MFPLAB Repository 10/27/2017/10/30/19 [id number] Rajendra Mcmillan Inpatient Mariel Chicken 18 Encounter [facility] ing:WF3Slyy: Repository JX879Cnz: 1 10/27/2017 [id number] Rajendra Mcmillan Ambulatory BMSBuilding:B Mariel [facility] Repository 10/27/2017 [id number] Deyanira Rajendra Ambulatory BMSBuilding:B [facility] Repository 10/27/2017 [id number] Deyanira Raejndra Ambulatory BMSBuilding:B [facility] Repository 10/23/2017/10/25/19 [id number] Ambulatory [address] Repository 09/25/2017/09/26/19 [id number] Ambulatory BMSBuilding:B Mariel 18 [facility] Repository PAYERS PAYERS ENCOUNTER GUARANTOR PAYER SUBSCRIBER SOURCE 06/13/2018 COSTA Hayden Primary COSTABETINA Floyd [id number] W Insurance:MEDICAL DENBOWDOB: [facility] [id number] Number: Repository [id number]: [phone] [id number] [phone] () Date:2746-25-46JK[address] [address]SH: 06/13/2018 Secondary NOT GIVENUNK Mariel Insurance:SELF PAY [facility] Number: Effective Repository Date:2018-06-13 06/07/2018 COSTA Hayden Primary COSTA Floyd [id number] W Insurance:MEDICAL DENBOWDOB: [facility] [id number] Number: Repository [address]Qmf: 330 [id number] [phone] (HP) Date:1565-45-21SJ [address] [address]UJ: 06/07/2018 Secondary NOT GIVENUNK Chicken Insurance:SELF PAY [facility] Number: Effective Repository Date:2018-06-07 02/11/2018 COSTA Hayden Primary COSTA Hayden Mariel [id number] W Insurance:MEDICAL DENBOWDOB: [facility] [id number] Number: Repository [address]Zsj: 330 [id number] [phone] (HP) Date:4190-09-24OF [address] [address]XR: 02/11/2018 Secondary NOT GIVENUNK Chicken Insurance:SELF PAY [facility] Number: Effective Repository Date:2018-01-02 12/05/2017 COSTA C Primary COSTA Hayden Mariel [id number] W Insurance:MEDICAL DENBOWDOB: [facility] [id number] Number: Repository [id number]: 330 [id number] [phone] (HP) Date:5625-53-13JT [address] [address]UF: 12/05/2017 Secondary NOT GIVENUNK Mariel Insurance:SELF PAY [facility] Number: Effective Repository Date:2017-12-05 11/29/2017 COSTA C Primary COSTA Mortonoster [id number] W Insurance:MEDICAL DENBOWDOB: [facility] [id number] Number: Repository [address]Lva: 330 [id number] [phone] (HP) Date:0681-18-28QM [address] [address]HD: 11/29/2017 Secondary NOT GIVENUNK Chicken Insurance:SELF PAY [facility] Number: Effective Repository Date:2017-11-29 11/27/2017 COSTA Hayden Primary COSTA C [employer] DENBOWDOB: Insurance:Medical DENBOWDOB: [facility] [id number] Repository GRADY Number: [address] [place], [place] [id number] [place], [place] [address]Ict: ([phone]) Date:Plan Name:Health [id number]: (HP) [phone] (HP) 11/26/2017 COSTA Jackelyn Primary COSTA Hayden Chicken [id number] W Insurance:MEDICAL DENBOWDOB: [facility] [id number] Number: Repository [address]Swt: 330 [id number] [phone] Date:4496-68-01YP [address] [address]NF: 11/26/2017 Secondary NOT GIVENUNK Mariel Insurance:SELF PAY [facility] Number: Effective Repository Date:2017-11-26 11/01/2017 COSTA Jackelyn Primary COSTA Hayden Chicken [id number] W Insurance:MEDICAL DENBOWDOB: [facility] [id number], [place] Number: Repository [id number]: 330 [id number] [phone] () Date:8085-69-35YO [address] [address]MI: 11/01/2017 Secondary NOT GIVENUNK Chicken Insurance:SELF PAY [facility] Number: Effective Repository Date:2017-11-01 10/27/2017 COSTA Hayden [facility] COSTA Hayden Mariel [id number] W Insurance:MEDICAL DENBOWDOB: [facility] [id number] [place], [place] Number: Repository [address]Nkl: 330 [id number] [phone] (HP) Date:1219-35-43YB [address] [address]FT: 10/27/2017 Secondary NOT GIVENUNK Mariel Insurance:SELF PAY [facility] Number: Effective Repository Date:2017-10-27 10/27/2017 COSTA Hayden Primary COSTA Hayden Chicken [id number] W Insurance:MEDICAL DENBOWDOB: [facility] [id number], [place] Number: Repository [id number]: [phone] [id number] [phone] (HP) Date:5400-65-79PS [address] [address]EN: 10/27/2017 Secondary NOT GIVENUNK Chicken Insurance:SELF PAY [facility] Number: Effective Repository Date:2017-10-27 10/27/2017 COSTA Hayden Primary COSTA Hayden Chicken [id number] W Insurance:MEDICAL DENBOWDOB: [facility] [id number], [place] Number: Repository [id number]: 330 [id number] [phone] (HP) Date:0539-91-36HD [address] [address]RJ: 10/27/2017 Secondary NOT GIVENUNK Chicken Insurance:SELF PAY [facility] Number: Effective Repository Date:2017-10-27 10/27/2017 COSTA Hayden Primary COSTA Hayden Chicken [id number] W Insurance:MEDICAL DENBOWDOB: [facility] [id number], [place] Number: Repository [address]Doq: 330 [id number] [phone] (HP) Date:5205-29-99LH [address] [address]EY: 10/27/2017 Secondary NOT GIVENUNK Mariel Insurance:SELF PAY [facility] Number: Effective Repository Date:2017-10-27 09/25/2017 COSTA Hayden Primary COSTA Hayden Mariel [id number] W Insurance:MEDICAL DENBOWDOB: [facility] [id number], [place] Number: Repository [id number]: [phone] [id number] [phone] (HP) Date:7517-26-32[address] [address]OC: 09/25/2017 Secondary NOT GIVENUNK Mariel Insurance:SELF PAY [facility]: Effective Repository Date:2017-09-21
== END ==
PROVIDERS: Family Provider Family Medicine; PCP Family Medicine; Referring Provider Family Medicine; Visit Provider Family Medicine
DX: I10 Essential (primary) hypertension (principal); R79.89 Other specified abnormal findings of blood chemistry; K85.90 Acute pancreatitis without necrosis or infection, unspecified; K21.0 Gastro-esophageal reflux disease with esophagitis; E29.1 Testicular hypofunction
CPT/HCPCS: 36415; 80053; 80061; 82784; 83690; 84153; 84403; 85027; 86644

== ENCOUNTER → 2018-06-13 16:33 | Outpatient (CLI) | payer OTHER, SELFPAY ==
[2018-06-13 17:32] LABS: Anion Gap 8 (5-15); BUN 18 mg/dL (7-18); BUN/Creat Ratio 14.4 RATIO (10-20); Chloride 104 mmol/L (98-107); Creatinine, Serum 1.25 mg/dL (0.70-1.30); EST Glomerular Filtration Rate 65 mL/min (>60); Est Glom Filt Rate - Afr Amer 79 mL/min (>60); Glucose 90 mg/dL (74-106); Potassium 4.3 mmol/L (3.5-5.1); Sodium Level 136 mmol/L (136-145)
== END ==
PROVIDERS: Family Provider Family Medicine; PCP Family Medicine; Visit Provider Family Medicine
DX: N17.9 Acute kidney failure, unspecified (principal)
CPT/HCPCS: 36415; 80048

== ENCOUNTER → 2018-12-10 | Outpatient (CLI) | payer OTHER, SELFPAY ==
[2018-12-10 17:34] LABS: Erythrocyte Sedimentation Rate 2 mm/hr (0-15)
[2018-12-10 17:36] LABS: Hemoglobin 15.6 g/dl (13.0-16.5); Mean Corp Hgb Conc 34.7 g/gl (32-36); Mean Corpuscular Hgb 28.8 pg (27.0-32.0); Mean Corpuscular Volume 83.2 fL (80-94); Mean Platelet Vol. 9.6 fl (6.2-12.0); Platelet Count 321 K/mm3 (150-450); RBC Distribution Width CV 13.5 % (11.6-14.6); RBC Distribution Width SD 40.3 fl (35.1-43.9); Red Blood Count 5.41 M/mm3 (4.6-6.2); Scan Indicated on CBC? Y/N NO; White Blood Count 7.8 K/mm3 (4.4-11.0)
[2018-12-10 20:34] LABS: ALB/GLOB Ratio 1.2 RATIO (0.9-2.4); AST(SGOT) 30 U/L (15-37); Alanine Aminotransfer ALT/SGPT 44 U/L (16-61); Alkaline Phosphatase 82 U/L (45-117); Anion Gap 13 (5-15); BUN 20 mg/dL (7-18); BUN/Creat Ratio 14.3 RATIO (10-20); Chloride 105 mmol/L (98-107); EST Glomerular Filtration Rate 57 mL/min (>60); Est Glom Filt Rate - Afr Amer 69 mL/min (>60); Ferritin 47 ng/mL (26-388); Globulin 3.2 g/dL (2.2-4.2); Glucose 78 mg/dL (74-106); Iron 82 ug/dL (65-175); Potassium 4.4 mmol/L (3.5-5.1); Protein, Total 7.2 g/dL (6.4-8.2); Sodium Level 138 mmol/L (136-145); Thyroid Stim Hormone (TSH) 2.45 uIU/mL (0.358-3.74)
[2018-12-10 20:45] LABS: Vitamin B12 351 pg/mL (211-911); Vitamin D,25 Hydroxy 29.5 ng/mL (29.95-100.01)
[2018-12-13 12:20] LABS: ANTINUCLEAR ANTIBODIES DIRECT Negative (Negative)
== END | disposition home or self-care (01) ==
LOC: MFPLAB 16:10
PROVIDERS: Family Provider Family Medicine; PCP Family Medicine; Referring Provider Family Medicine; Visit Provider Family Medicine
DX: G62.9 Polyneuropathy, unspecified (principal)
CPT/HCPCS: 36415; 80053; 82306; 82607; 82728; 82746; 83540; 83735; 84443; 85027; 85652; 86038

== ENCOUNTER → 2019-06-12 10:54 | Outpatient (CLI) | payer OTHER, SELFPAY ==
[2019-04-07 09:42] VITALS: BMI 29.9
[2019-06-12 12:39] LABS: ALB/GLOB Ratio 1.2 RATIO (0.9-2.4); AST(SGOT) 31 U/L (15-37); Alanine Aminotransfer ALT/SGPT 61 U/L (16-61); Albumin, Serum 4.1 g/dL (3.2-5.0); Alkaline Phosphatase 81 U/L (45-117); Anion Gap 11 (5-15); BUN 15 mg/dL (7-18); BUN/Creat Ratio 10.1 RATIO (10-20); Calcium,Total 9.2 mg/dL (8.5-10.1); Chloride 103 mmol/L (98-107); Cholesterol 203 mg/dL (200); Creatinine, Serum 1.48 mg/dL (0.70-1.30); EST Glomerular Filtration Rate 54 mL/min (>60); Est Glom Filt Rate - Afr Amer 65 mL/min (>60); Globulin 3.3 g/dL (2.2-4.2); Glucose 93 mg/dL (74-106); High Density Lipoprotein 28 mg/dL; Potassium 3.8 mmol/L (3.5-5.1); Protein, Total 7.4 g/dL (6.4-8.2); Sodium Level 135 mmol/L (136-145); Triglycerides 289 mg/dL; Very Low Density Lipoprotein 58 mg/dL (5-40)
[2019-06-12 12:46] LABS: Vitamin B12 > 2000 pg/mL (211-911); Vitamin D,25 Hydroxy 40.1 ng/mL (29.95-100.01)
== END ==
PROVIDERS: Family Provider Family Medicine; PCP Family Medicine
DX: I10 Essential (primary) hypertension (principal); E53.8 Deficiency of other specified B group vitamins; E55.9 Vitamin D deficiency, unspecified; R79.89 Other specified abnormal findings of blood chemistry; E29.1 Testicular hypofunction
CPT/HCPCS: 36415; 80053; 80061; 82306; 82607; 84403

== ENCOUNTER → 2019-08-15 | Outpatient (CLI) | payer OTHER, SELFPAY ==
[2019-04-07 09:42] VITALS: BMI 29.9
[2019-08-15 10:27] LABS: Absolute Lymphocyte Count 2.26 X10^3/uL (0.83-4.51); Absolute Neutrophil Count 1.8 X10^3/uL (2.0-7.7); Basophil# 0.04 X10^3/uL; Basophil% 0.8 % (0-1); Eosinophil# 0.25 X10^3/uL; Eosinophils% 5.2 % (0-5); Hematocrit 44.6 % (40-54); Hemoglobin 15.3 g/dL (13.0-16.5); Lymphocyte # 2.26 X10^3/ul (4.0); Lymphocyte % 46.7 % (19-41); Mean Corp Hgb Conc 34.3 g/dL (32-36); Mean Corpuscular Hgb 28.3 pg (27.0-32.0); Mean Corpuscular Volume 82.6 fL (80-94); Mean Platelet Vol. 9.1 fl (6.2-12.0); Monocyte# 0.51 X10^3/uL; Monocyte% 10.5 % (0-10); NRBC Flagged by Analyzer 0 % (0-5); Neutrophil # 1.77 X10^3/uL (2.7-7.7); Neutrophil % 36.6 % (47-70); Platelet Count 313 K/mm3 (150-450); RBC Distribution Width SD 38.9 fl (35.1-43.9); White Blood Count 4.8 K/mm3 (4.4-11.0)
[2019-08-15 10:33] LABS: Erythrocyte Sedimentation Rate 3 mm/hr (0-15)
[2019-08-15 10:55] LABS: ALB/GLOB Ratio 1.1 RATIO (0.9-2.4); AST(SGOT) 34 U/L (15-37); Alanine Aminotransfer ALT/SGPT 61 U/L (16-61); Albumin, Serum 3.8 g/dL (3.2-5.0); Alkaline Phosphatase 90 U/L (45-117); Amylase 62 U/L (25-115); Anion Gap 6 (5-15); BUN 16 mg/dL (7-18); BUN/Creat Ratio 12.1 RATIO (10-20); Calcium,Total 9.2 mg/dL (8.5-10.1); Chloride 107 mmol/L (98-107); Creatinine, Serum 1.32 mg/dL (0.70-1.30); EST Glomerular Filtration Rate 61 mL/min (>60); Est Glom Filt Rate - Afr Amer 74 mL/min (>60); Globulin 3.5 g/dL (2.2-4.2); Glucose 110 mg/dL (74-106); Lipase 169 U/L (73-393); Potassium 4.2 mmol/L (3.5-5.1); Protein, Total 7.3 g/dL (6.4-8.2); Sodium Level 135 mmol/L (136-145)
== END | disposition home or self-care (01) ==
LOC: MFPLAB 09:21
PROVIDERS: PCP Family Medicine; Referring Provider Family Medicine; Visit Provider Family Medicine
DX: R10.9 Unspecified abdominal pain (principal)
CPT/HCPCS: 36415; 80053; 82150; 83690; 85025; 85652

== ENCOUNTER → 2020-02-06 | Outpatient (CLI) | payer OTHER, SELFPAY ==
[2019-04-07 09:42] VITALS: BMI 29.9
== END | disposition home or self-care (01) ==
PROVIDERS: Family Provider Family Medicine; PCP Family Medicine; Referring Provider Nurse Practitioner Adult Health; Visit Provider Nurse Practitioner Adult Health
DX: E29.1 Testicular hypofunction (principal); Z12.5 Encounter for screening for malignant neoplasm of prostate
CPT/HCPCS: 36415; 84153; 84403; G0103

== ENCOUNTER → 2020-06-15 15:11 | Outpatient (CLI) | payer OTHER, SELFPAY ==
[2019-04-07 09:42] VITALS: BMI 29.9
[2020-06-15 18:16] LABS: Hematocrit 44.9 % (40-54); Hemoglobin 15.1 g/dL (13.0-16.5); Mean Corp Hgb Conc 33.6 g/dL (32-36); Mean Corpuscular Hgb 28.2 pg (27.0-32.0); Mean Corpuscular Volume 83.9 fL (80-94); Mean Platelet Vol. 9.5 fl (6.2-12.0); Platelet Count 320 K/mm3 (150-450); RBC Distribution Width CV 13.8 % (11.6-14.6); Red Blood Count 5.35 M/mm3 (4.6-6.2); White Blood Count 6.9 K/mm3 (4.4-11.0)
[2020-06-15 18:33] LABS: Erythrocyte Sedimentation Rate < 1 mm/hr (0-20)
[2020-06-15 18:44] LABS: Anion Gap 8 (5-15); BUN 18 mg/dL (7-18); BUN/Creat Ratio 12.9 RATIO (10-20); Calcium,Total 8.9 mg/dL (8.5-10.1); Chloride 107 mmol/L (98-107); Creatinine, Serum 1.39 mg/dL (0.70-1.30); EST Glomerular Filtration Rate 57 mL/min (>60); Est Glom Filt Rate - Afr Amer 69 mL/min (>60); Ferritin 53 ng/mL (26-388); Glucose 110 mg/dL (74-106); Iron 129 ug/dL (65-175); Potassium 3.8 mmol/L (3.5-5.1); Sodium Level 138 mmol/L (136-145); T4 Free Direct 0.95 ng/dL (0.76-1.46); Thyroid Stim Hormone (TSH) 1.47 uIU/mL (0.358-3.74)
[2020-06-15 18:53] LABS: Vitamin B12 1473 pg/mL (211-911); Vitamin D,25 Hydroxy 63.6 ng/mL
[2020-06-19 20:07] LABS: Testosterone, % Free 3.96 % (1.50-4.20); Testosterone, Free 8.87 ng/dL (5.00-21.00)
[2020-06-20 14:46] LABS: Sex Hormone-binding Globulin 17.1 nmol/L (19.3-76.4); Testosterone, Total 224 ng/dL (264-916)
== END ==
PROVIDERS: PCP Family Medicine; Visit Provider Family Medicine
DX: G62.9 Polyneuropathy, unspecified (principal); R79.89 Other specified abnormal findings of blood chemistry; R68.89 Other general symptoms and signs
CPT/HCPCS: 36415; 80048; 82306; 82533; 82607; 82728; 83540; 84270; 84402; 84403; 84439; 84443; 85027; 85652

== ENCOUNTER → 2020-07-08 11:23 | Outpatient (CLI) | payer OTHER, SELFPAY ==
[2019-04-07 09:42] VITALS: BMI 29.9
--- NOTE | 2020-07-08 11:26 | RAD_ITS ---
STUDY: X-RAY CHEST REASON FOR EXAM: Male, 49 years old. shortness of breath, Hx COVID TECHNIQUE: PA and lateral views of the chest. COMPARISON: None. FINDINGS: The lungs are clear and expanded. There is no demonstrated pleural abnormality. Normal size heart. Normal mediastinum and christina. Normal visualized pulmonary arteries. Normal visualized aortic arch and descending thoracic aorta. Normal visualized thoracic spine. Normal visualized ribs, clavicles, and shoulders. There is no demonstrated abnormality of the visualized soft tissue structures of the upper abdomen. RAD/Chest PA and Lateral IMPRESSION: Normal x-ray examination of the chest. Electronically Signed: Mack Guevara MD at 16:43 EST Tel , Service support ,
== END ==
PROVIDERS: PCP Family Medicine; Referring Provider Family Medicine; Visit Provider Family Medicine
DX: U07.1 COVID-19 (principal)
CPT/HCPCS: 71046

== ENCOUNTER → 2020-10-05 11:59 | Outpatient (CLI) | payer OTHER, SELFPAY ==
[2020-10-05 11:05] VITALS: BMI 33.0
[2020-10-05 15:37] LABS: ALB/GLOB Ratio 1.2 RATIO (0.9-2.4); AST(SGOT) 27 U/L (15-37); Alanine Aminotransfer ALT/SGPT 53 U/L (16-61); Alkaline Phosphatase 71 U/L (45-117); Anion Gap 6 (5-15); BUN 16 mg/dL (7-18); BUN/Creat Ratio 13.6 RATIO (10-20); Calcium,Total 9.7 mg/dL (8.5-10.1); Chloride 102 mmol/L (98-107); Cholesterol 202 mg/dL (200); Creatinine, Serum 1.18 mg/dL (0.70-1.30); EST Glomerular Filtration Rate 69 mL/min (>60); Est Glom Filt Rate - Afr Amer 84 mL/min (>60); Globulin 3.2 g/dL (2.2-4.2); Glucose 106 mg/dL (74-106); High Density Lipoprotein 32 mg/dL; Potassium 4.1 mmol/L (3.5-5.1); Protein, Total 7.2 g/dL (6.4-8.2); Sodium Level 136 mmol/L (136-145); Triglycerides 282 mg/dL; Very Low Density Lipoprotein 56 mg/dL (5-40)
[2020-10-05 17:17] LABS: Estradiol 32.7 pg/mL; Follicle Stimulating Hormone 1.8 mIU/mL; Luteinizing Hormone 1.3 mIU/mL; Thyroid Stim Hormone (TSH) 2.13 uIU/mL (0.358-3.74)
[2020-10-07 16:08] LABS: Somatomedin C 150 ng/mL (74-255)
[2020-10-07 18:41] LABS: Thyroid Peroxidase AB < 9 IU/mL (0-34)
== END ==
PROVIDERS: PCP Family Medicine; Referring Provider Internal Medicine Endocrinology, Diabetes & Metabolism; Visit Provider Internal Medicine Endocrinology, Diabetes & Metabolism
DX: E04.9 Nontoxic goiter, unspecified (principal); R53.81 Other malaise; R53.83 Other fatigue; R79.89 Other specified abnormal findings of blood chemistry
CPT/HCPCS: 36415; 80053; 80061; 82670; 83001; 83002; 84305; 84403; 84443; 86376

== ENCOUNTER 2021-08-16 10:38 | Outpatient (CLI) | payer OTHER, SELFPAY ==
[2021-08-16 12:29] LABS: Vitamin D,25 Hydroxy 71.9 ng/mL
[2021-08-16 13:26] LABS: ALB/GLOB Ratio 1.1 RATIO (0.9-2.4); AST(SGOT) 23 U/L (15-37); Alanine Aminotransfer ALT/SGPT 43 U/L (16-61); Albumin, Serum 3.7 g/dL (3.2-5.0); Alkaline Phosphatase 77 U/L (45-117); Anion Gap 10 (5-15); BUN 15 mg/dL (7-18); Calcium,Total 8.9 mg/dL (8.5-10.1); Chloride 105 mmol/L (98-107); Cholesterol 206 mg/dL (200); Creatinine, Serum 1.25 mg/dL (0.70-1.30); EST Glomerular Filtration Rate 65 mL/min (>60); Est Glom Filt Rate - Afr Amer 78 mL/min (>60); Globulin 3.3 g/dL (2.2-4.2); Glucose 111 mg/dL (74-106); High Density Lipoprotein 34 mg/dL; Potassium 3.8 mmol/L (3.5-5.1); Sodium Level 136 mmol/L (136-145); Triglycerides 231 mg/dL; Very Low Density Lipoprotein 46 mg/dL (5-40)
== END 2021-08-16 23:59 | disposition home or self-care (01) ==
LOC: MFPLAB 10:39
PROVIDERS: PCP Family Medicine; Referring Provider Family Medicine; Visit Provider Family Medicine
DX: R73.01 Impaired fasting glucose (principal); R79.89 Other specified abnormal findings of blood chemistry; E55.9 Vitamin D deficiency, unspecified
CPT/HCPCS: 36415; 80053; 80061; 82306; 84403

== ENCOUNTER → 2022-05-08 | Outpatient (CLI) | payer OTHER, SELFPAY | END | disposition home or self-care (01) | LOC: LAB 15:44 | PROVIDERS: PCP Family Medicine; Visit Provider Urology | DX: Z12.5 Encounter for screening for malignant neoplasm of prostate (principal) | CPT/HCPCS: 36415; 84153; G0103 ==

== ENCOUNTER → 2023-01-31 | Outpatient (CLI) | payer OTHER, SELFPAY ==
[2023-01-31 15:32] LABS: Hematocrit 46.1 % (40-54); Hemoglobin 15.6 g/dL (13.0-16.5); Mean Corp Hgb Conc 33.8 g/dL (32-36); Mean Corpuscular Hgb 28.6 pg (27.0-32.0); Mean Corpuscular Volume 84.4 fL (80-94); Mean Platelet Vol. 9.6 fl (6.2-12.0); Platelet Count 286 K/mm3 (150-450); RBC Distribution Width CV 13.5 % (11.6-14.6); RBC Distribution Width SD 41.5 fl (35.1-43.9); Red Blood Count 5.46 M/mm3 (4.6-6.2); White Blood Count 6.3 K/mm3 (4.4-11.0)
[2023-01-31 16:11] LABS: ALB/GLOB Ratio 1.2 RATIO (0.9-2.4); AST(SGOT) 27 U/L (15-37); Alanine Aminotransfer ALT/SGPT 59 U/L (16-61); Albumin, Serum 3.8 g/dL (3.2-5.0); Alkaline Phosphatase 116 U/L (45-117); Anion Gap 5 (5-15); BUN 20 mg/dL (7-18); BUN/Creat Ratio 16.4 RATIO (10-20); CRP, High Sensitivity Cardiac 2.95 mg/L; Calcium,Total 8.9 mg/dL (8.5-10.1); Chloride 107 mmol/L (98-107); Cholesterol 146 mg/dL (200); Creatinine, Serum 1.22 mg/dL (0.70-1.30); EST Glomerular Filtration Rate 66 mL/min (>60); Est Glom Filt Rate - Afr Amer 80 mL/min (>60); Ferritin 110 ng/mL (26-388); GGTP 485 U/L (15-85); Globulin 3.3 g/dL (2.2-4.2); Glucose 94 mg/dL (74-106); High Density Lipoprotein 35 mg/dL; Magnesium 2.1 mg/dL (1.6-2.6); Phosphorus 3.4 mg/dL (2.5-4.9); Protein, Total 7.1 g/dL (6.4-8.2); Sodium Level 135 mmol/L (136-145); Triglycerides 118 mg/dL; Very Low Density Lipoprotein 24 mg/dL (5-40)
[2023-01-31 16:38] LABS: Homocysteine 8.7 umol/L (3.2-10.7)
[2023-01-31 19:41] LABS: Insulin 12.4 mU/L (2.6-37.6); Vitamin B12 1258 pg/mL (211-911); Vitamin D,25 Hydroxy 97.2 ng/mL
[2023-02-02 12:09] LABS: C-Peptide 4.4 ng/mL (1.1-4.4)
== END | disposition home or self-care (01) ==
LOC: MFPLAB 12:01
PROVIDERS: PCP Family Medicine; Visit Provider Family Medicine
DX: R73.01 Impaired fasting glucose (principal); E53.8 Deficiency of other specified B group vitamins; E55.9 Vitamin D deficiency, unspecified; R79.89 Other specified abnormal findings of blood chemistry; K76.0 Fatty (change of) liver, not elsewhere classified; I10 Essential (primary) hypertension
CPT/HCPCS: 36415; 80053; 80061; 82306; 82607; 82728; 82977; 83090; 83525; 83735; 84100; 84403; 84681; 85027; 86141

== ENCOUNTER → 2023-07-24 | Outpatient (CLI) | payer OTHER, SELFPAY ==
[2023-07-24 17:05] LABS: PSA,Total - Annual Screen 0.34 ng/mL (0.00-4.00)
--- OUTSIDE RECORDS SUMMARY | 2023-07-24 17:43 | XMS RPT_ITS | CCD ---
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 Name Role Phone LANCE FRANKEL Unavailable Unavailable LANCE FRANKEL Unavailable Unavailable Results Test Name Value Interpretation Reference Range Facil ity Encounters Encounter Date Encounter Type Care Provider Facility Start: 11-27-2017 Ambulatory LANCE FRANKEL Facili ty:9183 Payers Date Payer Category Payer Policy ID Unknown [id number] Summary Purpose Family History No Family History Records FoundNo Family History Records FoundNo Family History Records Found Advance Directives No Advanced Directives Records FoundNo Advanced Directives Records FoundNo Advanced Directives Records Found Additional Source Comments (unrecognized sect ion and content) No Status Records FoundNo Status Records FoundNo Status Records Found INFORMATION SOURCE (unrecogn ized section and content) DATE CREATED AUTHOR AUTHOR'S ORGANIZ ATION 12/27/2017 [facility] DATE CREATED AUTHOR AUTHOR'S ORGANIZ ATION 06/29/2020 [facility] FOR RECORDS PERTAINING TO PATIENTS WHO ARE OR HAVE BEEN ENROLLED IN A CHEMICAL DEPENDENCY/SUBSTANCEABUSE PROGRAM, SOME INFORMATION MAY BE OMITTED. This clinical summary was aggregated from multiple sources. Caution should be exercised in using it in the provision of clinical care. This summary normalizes information from multiple sources, and as a consequence, information in this document may materially change the coding, format and clinical context of patient data. In addition, data may be omitted in some cases. CLINICAL DECISIONS SHOULD BE BASED ON THE PRIMARY CLINICAL RECORDS. [facility] [employer] provides no warranty or guarantee of the accuracy or completeness of information in this document.
== END | disposition home or self-care (01) ==
LOC: LAB 16:10
PROVIDERS: PCP Family Medicine; Referring Provider Nurse Practitioner; Visit Provider Nurse Practitioner
DX: Z12.5 Encounter for screening for malignant neoplasm of prostate (principal)
CPT/HCPCS: 36415; 84153; G0103

== ENCOUNTER → 2023-10-16 | Outpatient (CLI) | payer OTHER, SELFPAY ==
[2023-10-16 15:33] LABS: ALB/GLOB Ratio 1.2 RATIO (0.9-2.4); AST(SGOT) 31 U/L (15-37); Alanine Aminotransfer ALT/SGPT 67 U/L (16-61); Alkaline Phosphatase 95 U/L (45-117); Anion Gap 9 (5-15); BUN 23 mg/dL (7-18); BUN/Creat Ratio 18.3 RATIO (10-20); Chloride 111 mmol/L (98-107); Creatinine, Serum 1.26 mg/dL (0.70-1.30); EST Glomerular Filtration Rate 63 mL/min (>60); Est Glom Filt Rate - Afr Amer 77 mL/min (>60); GGTP 474 U/L (15-85); Globulin 3.2 g/dL (2.2-4.2); Glucose 111 mg/dL (74-106); Potassium 3.9 mmol/L (3.5-5.1); Protein, Total 7.2 g/dL (6.4-8.2); Sodium Level 139 mmol/L (136-145)
== END | disposition home or self-care (01) ==
LOC: MFPLAB 10:20
PROVIDERS: PCP Family Medicine; Visit Provider Family Medicine
DX: K76.0 Fatty (change of) liver, not elsewhere classified (principal)
CPT/HCPCS: 36415; 80053; 82977

== ENCOUNTER 2024-09-09 07:23 | Day surgery (SDC) | payer OTHER, SELFPAY ==
[2024-09-09] VITALS (8 sets, daily range): BP systolic 110–140; BP diastolic 71–84; PULSE 66–85; RESP 16; TEMP 36.2–36.8; O2SAT 93–97; BMI 31.4
--- NOTE | 2024-09-09 08:26 | PCM.PRE.AN2 ---
ASA Classification* ASA Classification ASA Classification: 2 Assessment & Plan Anesthesia* Anesthesia Assessment Anesthesia Assessment: Discussed sedation and/or anesthesia options, risks, benefits, and alternatives with patient/parents/legal guardian/POA. Questions invited. The patient/parents/legal guardian/POA seems to understand and agrees to proceed with anesthesia plan. Reviewed the physical assessment, medical history, allergy history and patient home medications list prior to surgery/procedure/anesthetic and documented any changes. Performed airway and anesthesia risk assessments. Anesthesia Type Anesthesia Type: MAC History Source History Obtained from:: Patient and Chart Anesthesia Focused Assessment* Temperature: 98.3 F Pulse Rate: 85 Blood Pressure: 140/84 Respiratory Rate: 16 Pulse Ox: 97 Oxygen Delivery Method: Room Air Airway Assessment Mouth opens: >3 cm Mallampati Score: II Teeth Condition: Intact Neck Range of motion (ROM): Full ROM Focused Labs Anesthesia Preop lab: CBC WBC 6.3 K/mm3 (4.4-11.0) 01/31/23 12:03 01/31/23 RBC 5.46 M/mm3 (4.6-6.2) 01/31/23 12:03 01/31/23 Hgb 15.6 g/dL (13.0-16.5) 01/31/23 12:03 01/31/23 Hct 46.1 % (40-54) 01/31/23 12:03 01/31/23 Plt Count 286 K/mm3 (150-450) 01/31/23 12:03 01/31/23 CHEMISTRY Potassium 3.9 mmol/L (3.5-5.1) 10/16/23 10:21 10/16/23 Sodium 139 mmol/L (136-145) 10/16/23 10:21 10/16/23 Magnesium 2.1 mg/dL (1.6-2.6) 01/31/23 12:03 01/31/23 Phosphorus 3.4 mg/dL (2.5-4.9) 01/31/23 12:03 01/31/23 BUN 23 mg/dL (7-18) H 10/16/23 10:21 10/16/23 Creatinine 1.26 mg/dL (0.70-1.30) 10/16/23 10:21 04/09/24 Glucose 111 mg/dL (74-106) H 10/16/23 10:21 10/16/23 TSH 2.13 uIU/mL (0.358-3.74) 10/05/20 12:05 10/05/20 COAG Pre-Assessment Diagnosis/Proposed Procedure Planned Operative Procedure(s): COLONOSCOPY Anesthesia History Anesthesia History - information assistant: Anesthesia History - information assistant Hx Hospitalization No 09/03/24 10:03 Any Problems With Anesthesia No 09/03/24 10:03 Cholinesterase deficiency No 09/03/24 10:03 You/Your Family Experience No 09/03/24 10:03 fever (hyperthermia) with Relationship Recent Exposure to Contagious No 09/09/24 07:45 Disease Does patient have nerve No 09/03/24 10:03 stimulator Patient instructed to have device shut off --Does patient have Pacemaker No 09/09/24 07:45 or ICD? When Was Last Pacemaker Check QUESTION #4 FULL TEXT: You/Your Family Experience fever (hyperthermia) with Anesthesia Last Oral Intake Last Oral intake: Last Oral Intake NPO since 07:00 09/09/24 07:45 Meds taken in AM with sips of Yes 09/09/24 07:45 water? Meds patient instructed to metoprolol 09/09/24 07:45 take am of surgery Any additional information?: Yes NPO since: 07:00 (Patient took his meds at 7 AM.) Meds taken in AM with sips of water?: Yes PONV PONV - information assistant: PONV - information assistant Female No 09/03/24 10:03 HX of Motion Sickness No 09/03/24 10:03 HX of N/V After Surgery No 09/03/24 10:03 Non-Smoker No 09/03/24 10:03 Duration of Surgery greater No 09/03/24 10:03 than 60 minutes Number of Risk Factors PONV Score Height & Weight Height & Weight: Anesthesia: Height & Weight Height 6 ft 09/09/24 07:45 Weight: 105.2 kg 09/09/24 07:45 Body Mass Index (BMI) 31.4 09/09/24 07:45 Respiratory Assessment Respiratory Assessment - information assistant: Respiratory Tract Infection Hx - information assistant Hx Respiratory Tract Infection No 09/03/24 10:03 STOP Sleep Apnea STOP Sleep Apnea - information assistant: STOP Sleep Apnea - information assistant Hx Hypertension Yes: CONTROLLED ON MED 09/03/24 10:03 Hx Sleep Apnea Yes 09/03/24 10:03 CPAP Yes 09/03/24 10:03 BIPAP No 09/03/24 10:03 Do you snore loudly (louder than talking or can be heard Do you often feel tired/ fatigued/ sleepy during daytime? Has anyone observed you stop breathing during sleep? STOP Results Positive 09/03/24 10:03 QUESTION #5 FULL TEXT : Do you snore loudly (louder than talking or can be heard through closed doors)? 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 Specify any problems Hx of Preganancy in last 3 N/A 09/03/24 10:03 Months Nurse Filling Out Transfusion VCHRISTIN 09/03/24 10:03 & Questions: Date: 09/03/24 09/03/24 10:03 Time: 10:04 09/03/24 10:03 Patient unable to answer at this time (ie. confused, unrespo /Reproduction History /Reproductive History - information assistant: /Reproductive Hx- information assistant Hx Now Gestational Age (in weeks): EDC: Hx Hx Para Hx Section SAB PFSH Medical History Wears glasses Injury of head and neck Vapes nicotine containing substance CPAP (continuous positive airway pressure) dependence History of echocardiogram Anal fistula Male hypogonadism Skin cancer prostate issues High triglycerides High cholesterol Frequent headaches Gastrointestinal problem GERD (gastroesophageal reflux disease) Arthritis Seasonal allergies Rectal pain Sleep apnea Hemorrhoids Hypertension Back problem Home Medications ?Medication ?Instructions ?Recorded ?Last Taken ?Type cetirizine 5 mg-pseudoephedrine ER 1 tab PO DAILY PRN allergies 09/25/17 10/26/17 History 120 mg tablet,extended release,12hr (Zyrtec-D) potassium chloride 20 mEq 20 meq PO DAILY potassium 09/25/17 10/26/17 History tablet,extended release replacement cholecalciferol (vitamin D3) 50 2,000 unit PO BID daily vitamin 09/26/17 10/26/17 History mcg (2,000 unit) capsule fenofibrate nanocrystallized 145 145 mg PO DAILY cholesterol 09/26/17 10/26/17 History mg tablet (Tricor) fluticasone propionate 50 1 spray intranasal PRN PRN 09/26/17 10/26/17 History mcg/actuation nasal Congestion spray,suspension (Flonase Allergy Relief) metoprolol succinate 100 mg 100 mg PO BID blood pressure 09/26/17 09/09/24 07:00 History tablet,extended release 24 hr tadalafil 5 mg tablet 5 mg PO DAILY 10/05/20 09/08/24 09:00 History magnesium 250 mg tablet 250 mg PO DAILY 09/03/24 Unknown History multivitamin (Daily Multi-Vitamin 1 tab PO DAILY 09/03/24 Unknown History tablet) omega 2-kfp-uzy-fish oil 1,200 mg 1 cap PO DAILY 09/03/24 09/02/24 History (144 mg-216 mg) capsule (Fish Oil) Allergy/AdvReac Type Severity Reaction Status Date / Time No Known Allergies Allergy Verified 09/09/24 07:43 Family History Mother Diabetes Hypertension Cancer skin Father Heart disease Cancer Skin Multiple myeloma Hypertension Other Anxiety Arthritis Bowel disease Breast cancer CVA (cerebral vascular accident) Depression High cholesterol Hormone deficiency Liver disease Myocardial infarction Osteoporosis Thyroid disorder blood clots blood transfusion Surgical History (Updated 09/09/24 @ 08:[address] Spencer Arguelles MD) Normal colonoscopy Hx of wisdom tooth extraction Hemorrhoid S/P tonsillectomy and adenoidectomy Social History Smoking Status: Current every day smoker tobacco type: e-cigarettes second hand exposure: No alcohol intake: current alcohol intake frequency: holidays/special occasions only substance use type: does not use caffeine: Yes what type of physical activity do you participate in: other frequency: does not exercise seatbelt use: always Review of Systems (Anesthesia) ROS Narrative System reviewed and no additional complaints, except as documented.
--- NOTE | 2024-09-09 08:28 | PCM.HP.BLA ---
History and Physical Date of Admission: 09/09/24 Intake Chief Complaint: fistula Allergies No Known Allergies Allergy (Verified 08/28/24 10:19) Medications ?Medication ?Instructions ?Recorded ?Confirmed ?Type cetirizine 5 mg-pseudoephedrine ER 1 tab PO DAILY allergies 09/25/17 08/28/24 History 120 mg tablet,extended release,12hr (Zyrtec-D) potassium chloride 20 mEq 20 meq PO DAILY potassium 09/25/17 08/28/24 History tablet,extended release replacement cholecalciferol (vitamin D3) 50 2,000 unit PO DAILY daily vitamin 09/26/17 08/28/24 History mcg (2,000 unit) capsule fenofibrate nanocrystallized 145 145 mg PO DAILY cholesterol 09/26/17 08/28/24 History mg tablet (Tricor) fluticasone propionate 50 1 spray intranasal PRN PRN 09/26/17 08/28/24 History mcg/actuation nasal Congestion spray,suspension (Flonase Allergy Relief) metoprolol succinate 100 mg 100 mg PO BID blood pressure 09/26/17 08/28/24 History tablet,extended release 24 hr tadalafil 5 mg tablet mg PO 10/05/20 08/28/24 History vitamins B1 B6 B12 tablet tab PO 08/28/24 08/28/24 History Assessment and Plan Assessment and Plan (1) Screen for colon cancer: Status: Acute (2) Anal fistula: Status: Acute Orders: Orders Colonoscopy Today Z12.11 - Encounter for screening for malignant neoplasm of colon Referrals Colon & Rectal Surgery K60.30 - Anal fistula, unspecified 08/28/24 1048 <Electronically signed by Mark Lutz MD> Date Mark Lutz MD cc: Dr. 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 Is patient in pain?: No Allergies No Known Allergies Allergy (Verified 08/28/24 10:19) Medications ?Medication ?Instructions ?Recorded ?Confirmed ?Type cetirizine 5 mg-pseudoephedrine ER 1 tab PO DAILY allergies 09/25/17 08/28/24 History 120 mg tablet,extended release,12hr (Zyrtec-D) potassium chloride 20 mEq 20 meq PO DAILY potassium 09/25/17 08/28/24 History tablet,extended release replacement cholecalciferol (vitamin D3) 50 2,000 unit PO DAILY daily vitamin 09/26/17 08/28/24 History mcg (2,000 unit) capsule fenofibrate nanocrystallized 145 145 mg PO DAILY cholesterol 09/26/17 08/28/24 History mg tablet (Tricor) fluticasone propionate 50 1 spray intranasal PRN PRN 09/26/17 08/28/24 History mcg/actuation nasal Congestion spray,suspension (Flonase Allergy Relief) metoprolol succinate 100 mg 100 mg PO BID blood pressure 09/26/17 08/28/24 History tablet,extended release 24 hr tadalafil 5 mg tablet mg PO 10/05/20 08/28/24 History vitamins B1 B6 B12 tablet tab PO 08/28/24 08/28/24 History Have you fallen in the past year?: No REPLACED BY [facility] Medical History (Updated 08/28/24 @ 10:[address] Mark Lutz MD) Anal fistula Male hypogonadism Skin cancer prostate issues High triglycerides High cholesterol Frequent headaches Gastrointestinal problem GERD (gastroesophageal reflux disease) Arthritis Seasonal allergies Rectal pain Sleep apnea Hemorrhoids Hypertension Back problem Surgical History Hemorrhoid S/P tonsillectomy and adenoidectomy Family History Mother Diabetes Hypertension Cancer skinFather Heart disease Cancer Skin Multiple myeloma HypertensionOther Anxiety Arthritis Bowel disease Breast cancer CVA (cerebral vascular accident) Depression High cholesterol Hormone deficiency Liver disease Myocardial infarction Osteoporosis Thyroid disorder blood clots blood transfusion Social History Smoking Status: Former smoker second hand exposure: No alcohol intake: current alcohol intake frequency: holidays/special occasions only substance use type: does not use caffeine: Yes what type of physical activity do you participate in: other frequency: does not exercise seatbelt use: always HPI HPI HPI: Patient is a 53-year-old male here for screening colonoscopy and for his rectal fistula. The patient has a large rectal fistula to the posterior is. This has been there for several years. It is draining clear fluid. He says he has to go to the bathroom several times a day to wait. He is also due for screening colonoscopy as his last one was in 2014. He denies abdominal pain or blood in the stool. No family history of colon cancer. Exam Const General: cooperative Orientation: alert and oriented x3 HENMT Head: normal to inspection Neck Neck: normal visual inspection and full ROM Chest Chest palpation & inspection: normal inspection of the chest Resp Effort & Inspection: normal respiratory effort Auscultation: clear to auscultation bilaterally Cardio Rate: regular rate Rhythm: regular rhythm GI Inspection: non-distended Palpation: soft and nontender Skin General: no rashes or lesions noted Neuro General: patient alert and patient oriented x3 Extrem General: full ROM Psych Appearance: grossly normal Mental Status: mental status grossly normal Assessment and Plan Assessment and Plan (1) Screen for colon cancer: Status: Acute Plan: Patient is due for screening colonoscopy. I explained endoscopy in detail to the patient. I explained the risks including but not limited to stroke or heart attack with anesthesia, perforation of the GI tract, bleeding, infection. I explained that any of these could necessitate further emergency surgery. The patient understands and all questions were answered sufficiently. The patient wishes to proceed with procedure. (2) Anal fistula: Status: Acute Plan: I will refer the patient to Dr. Silver for management of his fistula. I will perform a colonoscopy in the meantime. Mark Lutz MD Pager: [facility] [address] [place] [address], [address] [place] [address] Office: I have examined the patient and the H&P has been reviewed. There are no clinical changes since date of exam.
--- NOTE | 2024-09-09 09:00 | OP.CCLET_ITS ---
09/09/2024 Scooter Romero [address] [place] [address] Re : Colonoscopy procedure for Costa Ayala Dear Dr. Romero This procedure was performed on Monday, September 09, 2024. My impressions and recommendations are as follows: Impressions : - The entire examined colon is normal on direct and retroflexion views. - No specimens collected. Recommendations : - Discharge patient to home. - Resume previous diet. - Continue present medications. - Repeat colonoscopy in 10 years for screening purposes. My findings are described in the full procedure note, which is enclosed. If I can be of further assistance, please feel free to contact me at Doctor phone number(s): , Work: . Sincerely, Mark Lutz MD 09/09/2024 9:00:08 AM This report has been signed electronically.
--- NOTE | 2024-09-09 09:00 | OP.COLON_ITS ---
Patient Name: Costa Ayala Procedure Date: 09/09/2024 8:34 AM Date of : 1970 Age: 53 Procedure: Colonoscopy Indications: Screening for colorectal malignant neoplasm Providers: Mark Lutz MD Referring MD: Scooter Romero Medicines: Propofol per Anesthesia Patient Profile: This is a 53 year old male. Refer to note in patient chart for documentation of history and physical. Last Colonoscopy: 10 years ago. Complications: No immediate complications. Procedure: Pre-Anesthesia Assessment: - Prior to the procedure, a History and Physical was performed, and patient medications and allergies were reviewed. The patient's tolerance of previous anesthesia was also reviewed. The risks and benefits of the procedure and the sedation options and risks were discussed with the patient. All questions were answered, and informed consent was obtained. Prior Anticoagulants: The patient has taken no anticoagulant or antiplatelet agents. After reviewing the risks and benefits, the patient was deemed in satisfactory condition to undergo the procedure. After I obtained informed consent, the scope was passed under direct vision. Throughout the procedure, the patient's blood pressure, pulse, and oxygen saturations were monitored continuously. The Colonoscope was introduced through the anus and advanced to the cecum, identified by appendiceal orifice and ileocecal valve. The colonoscopy was performed without difficulty. The patient tolerated the procedure well. The quality of the bowel preparation was good. The ileocecal valve, appendiceal orifice, and rectum were photographed. Scope In: 8:47:54 AM Scope Withdrawal Time 0 hours 6 minutes 48 seconds Scope Out: 8:57:52 AM Total Procedure Duration Time 0 hours 9 minutes 58 seconds Findings: The entire examined colon appeared normal on direct and retroflexion views. Impression: - The entire examined colon is normal on direct and retroflexion views. - No specimens collected. Recommendation: - Discharge patient to home. - Resume previous diet. - Continue present medications. - Repeat colonoscopy in 10 years for screening purposes. Procedure Code(s): --- Professional --- 33028, Colonoscopy, flexible; diagnostic, including collection of specimen(s) by brushing or washing, when performed (separate procedure) Diagnosis Code(s): --- Professional --- Z12.11, Encounter for screening for malignant neoplasm of colon CPT copyright 2021 [employer]. All rights reserved. The codes documented in this report are preliminary and upon coder operator review may be revised to meet current compliance requirements. Mark Lutz MD 09/09/2024 9:00:08 AM This report has been signed electronically. Number of Addenda: 0 Note Initiated On: 09/09/2024 8:34 AM
--- NOTE | 2024-09-09 09:01 | PCM.POST.ANE ---
Anesthesia: Postop Eval I Current Vital Signs Temperature: 97.1 F Pulse Rate: 75 Blood Pressure: 110/71 Respiratory Rate: 16 Pulse Ox: 95 Assessment Airway patent: Yes Spontaneous unlabored respirations: Yes nausea: No Vomiting: No Anesthesia Complication: No Fluid Hydration Crystalloid volume administer (ml): 0 Total IV fluid infused: 0 Progress Note Anesthesia document: Postop Eval 1 completed: Yes
--- NOTE | 2024-09-09 09:27 | POSTOPAN2_ITS ---
Anesthesia Postop Eval I Sum Postop Eval Completion status Anesthesia document: Postop Eval 1 completed: Yes Anesthesia Postop Eval I Summary Anesthesia Postop Eval I Summary: Anesthesia Postop Eval I: Assessment Summary Airway patent Yes 09/09/24 09:26 [email or web address] Spontaneous unlabored Yes 09/09/24 09:26 ACOUSTIC ENGINEER.CSIR respirations Mental status nausea No 09/09/24 09:26 ACOUSTIC ENGINEER.CSIR Vomiting No 09/09/24 09:26 ACOUSTIC ENGINEER.CSIR Anesthesia Postop Eval I: Fluid Summary Crystalloid volume administer 0 09/09/24 09:26 ACOUSTIC ENGINEER.CSIR (ml) Colloids volume administered ( ml) Blood Product volume administered (ml) Total IV fluid infused 0 09/09/24 09:26 ACOUSTIC ENGINEER.CSIR Anesthesia Postop Eval I: Summary Notes Anesthesia Complication No 09/09/24 09:26 ACOUSTIC ENGINEER.CSIR Anesthesia Complication Comment: Post-operative progress note Anesthesia: Postop Eval II Evaluation Mental status: Awake and Calm Pain Level: 0 nausea: No Vomiting: No
--- NOTE | 2024-09-09 09:27 | PCM.POSTANE2 ---
Anesthesia Postop Eval I Sum Postop Eval Completion status Anesthesia document: Postop Eval 1 completed: Yes Anesthesia Postop Eval I Summary Anesthesia Postop Eval I Summary: Anesthesia Postop Eval I: Assessment Summary Airway patent Yes 09/09/24 09:26 CONSTRUCTION AND MAINTENANCE INSPECTOR.CSIR Spontaneous unlabored Yes 09/09/24 09:26 CONSTRUCTION AND MAINTENANCE INSPECTOR.CSIR respirations Mental status nausea No 09/09/24 09:26 CONSTRUCTION AND MAINTENANCE INSPECTOR.CSIR Vomiting No 09/09/24 09:26 CONSTRUCTION AND MAINTENANCE INSPECTOR.CSIR Anesthesia Postop Eval I: Fluid Summary Crystalloid volume administer 0 09/09/24 09:26 CONSTRUCTION AND MAINTENANCE INSPECTOR.CSIR (ml) Colloids volume administered ( ml) Blood Product volume administered (ml) Total IV fluid infused 0 09/09/24 09:26 CONSTRUCTION AND MAINTENANCE INSPECTOR.CSIR Anesthesia Postop Eval I: Summary Notes Anesthesia Complication No 09/09/24 09:26 CONSTRUCTION AND MAINTENANCE INSPECTOR.CSIR Anesthesia Complication Comment: Post-operative progress note Anesthesia: Postop Eval II Evaluation Mental status: Awake and Calm Pain Level: 0 nausea: No Vomiting: No
== END 2024-09-09 09:54 | disposition home or self-care (01) ==
LOC: EN 07:24 → AC 07:25
PROVIDERS: PCP Family Medicine; Referring Provider Family Medicine; Visit Provider Surgery
PROC: 0DJD8ZZ Inspection of Lower Intestinal Tract, Via Natural or Artificial Opening Endoscopic (ICD-10-PCS; CPT 45378; principal; 2024-09-09 08:25)
DX: Z12.11 Encounter for screening for malignant neoplasm of colon (principal); K60.40 Rectal fistula, unspecified; Z87.891 Personal history of nicotine dependence; I10 Essential (primary) hypertension; K60.30 Anal fistula, unspecified; E78.00 Pure hypercholesterolemia, unspecified; K21.9 Gastro-esophageal reflux disease without esophagitis; Z79.899 Other long term (current) drug therapy
CPT/HCPCS: 45378; A4216

== ENCOUNTER → 2024-10-20 | Outpatient (CLI) | payer OTHER, SELFPAY ==
[2024-10-20 17:42] LABS: Absolute Lymphocyte Count 2.97 X10^3/uL (0.83-4.51); Absolute Neutrophil Count 2.9 X10^3/uL (2.0-7.7); Basophil# 0.05 X10^3/uL; Basophil% 0.7 % (0-1); Eosinophil# 0.14 X10^3/uL; Eosinophils% 2.1 % (0-5); Hematocrit 45.6 % (40-54); Hemoglobin 15.7 g/dL (13.0-16.5); Lymphocyte # 2.97 X10^3/ul (0.83-4.51); Lymphocyte % 44.5 % (19-41); Mean Corp Hgb Conc 34.4 g/dL (32-36); Mean Corpuscular Hgb 29.2 pg (27.0-32.0); Mean Corpuscular Volume 84.9 fL (80-94); Mean Platelet Vol. 9.8 fl (6.2-12.0); Monocyte# 0.63 X10^3/uL; Monocyte% 9.4 % (0-10); NRBC Flagged by Analyzer 0 % (0-5); Neutrophil # 2.87 X10^3/uL (2.7-7.7); Neutrophil % 43.2 % (47-70); Platelet Count 249 K/mm3 (150-450); RBC Distribution Width CV 13.2 % (11.6-14.6); RBC Distribution Width SD 40.8 fl (35.1-43.9); Red Blood Count 5.37 M/mm3 (4.6-6.2); White Blood Count 6.7 K/mm3 (4.4-11.0)
[2024-10-20 18:34] LABS: ALB/GLOB Ratio 1.9 RATIO (0.9-2.4); AST(SGOT) 48 U/L (<=37); Alanine Aminotransfer ALT/SGPT 69 U/L (<=46); Albumin, Serum 4.5 g/dL (3.5-5.0); Alkaline Phosphatase 116 U/L (40-129); Anion Gap 13 (5-15); BUN 18 mg/dL (4-19); BUN/Creat Ratio 15.2 RATIO (10-20); Calcium,Total 9.4 mg/dL (7.6-11.0); Carbon Dioxide 18.8 mmol/L (21.0-32.0); Chloride 103 mmol/L (98-108); Cholesterol 163 mg/dL (<=200); Creatinine, Serum 1.17 mg/dL (0.70-1.20); EST Glomerular Filtration Rate 74 (>60); Globulin 2.4 g/dL (2.2-4.2); Glucose 94 mg/dL (70-99); High Density Lipoprotein 37 mg/dL; Low Density Lipoprotein Calc. 101 mg/dL; Potassium 4.3 mmol/L (3.3-5.1); Protein, Total 6.9 g/dL (5.9-8.4); Sodium Level 134 mmol/L (133-145); Triglycerides 124 mg/dL; Very Low Density Lipoprotein 25 mg/dL (5-40); cholesterol:hdl ratio screen 4.37
== END | disposition home or self-care (01) ==
LOC: MFPLAB 13:49
PROVIDERS: PCP Family Medicine; Referring Provider Family Medicine; Visit Provider Family Medicine
DX: I10 Essential (primary) hypertension (principal); E78.5 Hyperlipidemia, unspecified; K76.0 Fatty (change of) liver, not elsewhere classified
CPT/HCPCS: 36415; 80053; 80061; 80074; 82977; 85025

== ENCOUNTER → 2024-11-04 | Outpatient (CLI) | payer OTHER, SELFPAY ==
--- NOTE | 2024-11-04 09:11 | US_ITS ---
PROCEDURE: ABD LIMITED W/ ELASTOGRAPHY, 11/04/2024 REASON FOR EXAM: FATTY LIVWER, ELEVATED LFT COMPARISON: None TECHNIQUE: Grayscale and color Doppler imaging of the right upper quadrant was performed. Elastography was performed for non-invasive assessment of liver tissue stiffness utilizing a Pin or Peg S-shear wave imaging unit. FINDINGS: Liver: Borderline minimally echogenic. 19.5 cm in length. Gallbladder: Underdistended and suboptimally evaluated. No definite stones, sludge, significant wall thickening or pericholecystic fluid. Reportedly, sonographic Moise's was negative. Biliary tree: Unremarkable. CBD measures 3 mm. Pancreas: Partially obscured by shadowing bowel gas, grossly unremarkable as visualized. Right kidney: Unremarkable. 12.4 cm in length. Other: No visualized free fluid. Hepatic elastography: Number of measurements: 15 measurements across 3 regions, 5 measurements per region. US probe: CA1-7A. EQI median: 6.1 kPa EQI median velocity: 1.4 m/s IQR/Med: 2.7-21.2% (kPa) and 1.5-11.2% (m/s). If the IQR/Med is IQR/median >30% (for kPa) or >15% in m/s, the variance in the measurements is a large and the accuracy of the measurement may be in question. US/ABD Limited w/ Elastography IMPRESSION: 1. Borderline hepatomegaly and appearance of the hepatic parenchyma which can b e seen in chronic liver disease such as hepatic steatosis. Correlate with clinical and laboratory evaluation. 2. Liver stiffness is 6.1 kPa. Per the below 2020 SRU criteria, this rules out compensated advanced chronic liver disease in the absence of other known clinical signs. If there are known clinical signs, furth er testing may be needed for confirmation. 3. Additional description as above. Assessment is per the Update to the SRU Liver Elastography Consensus Statement (2020) Note that the above assessment of liver fibrosis is vendor-neutral and intended for use in fibrosis related to viral etiologies and non-alcoholic fatty-liver disease (NAFLD); in causes other than viral hepat itis and NAFLD, the cutoff values are currently not well established. In some patients with NAFLD, the cutoff values for cACLD may be lower (7-9 kPa). Note also that in the setting of elevated LFTs, nonfasting or vascular congestion, the stage of lifer fibrosis may be overestimated. Previous SRU reference values: <1.37 m/s (5.7kPa): No to mild fibrosis 1.37 m/s - 2.2 m/s: Moderate to severe fibrosis >2.2 m/s (15kPa): Significant fibrosis / cirrhosis Reading Location: [id number]
== END | disposition home or self-care (01) ==
PROVIDERS: PCP Family Medicine; Referring Provider Family Medicine; Visit Provider Family Medicine
DX: K76.0 Fatty (change of) liver, not elsewhere classified (principal)
CPT/HCPCS: 76705; 76981

== ENCOUNTER → 2024-11-10 | Outpatient (CLI) | payer OTHER, SELFPAY ==
[2024-11-10 12:02] LABS: PSA,Total - Annual Screen 0.36 ng/mL (0.02-4.00)
[2024-11-12 04:07] LABS: GGTP 465 IU/L (0-65)
== END | disposition home or self-care (01) ==
LOC: LAB 10:11
PROVIDERS: PCP Family Medicine; Referring Provider Urology; Visit Provider Urology
DX: K76.0 Fatty (change of) liver, not elsewhere classified (principal); Z12.5 Encounter for screening for malignant neoplasm of prostate
CPT/HCPCS: 36415; 82977; 84153; G0103

== ENCOUNTER → 2025-05-15 | Outpatient (CLI) | payer OTHER, SELFPAY ==
--- NOTE | 2025-05-15 15:57 | CT_ITS ---
PROCEDURE: CHEST WITHOUT CONTRAST 05/15/2025 REASON FOR EXAM: PULMONARY NODULE Follow-up examination. TECHNIQUE: Chest CT without contrast. Coronal and Sagittal reconstruction series were provided. One or more dose reduction techniques were used (e.g., Automated exposure control, adjustment of the mA and/or kV according to patient size, use of iterative reconstruction technique RADIATION DOSE SUMMARY: CTDlvol: 16.09 mGy DLP: 715.76 mGycm COMPARISON: Prior chest radiograph dated March. FINDINGS: Hardware: None Lymph nodes: Small bilateral fat containing axillary lymph nodes. No significant hilar or mediastinal lymph nodes seen. Heart and Vasculature: The heart is nonenlarged. Coronary Artery Calcifications: Absent Lungs and Airways: Hyperinflation. Mild linear scarring at the lung bases. No pulmonary nodule is seen. Pleura: Unremarkable Upper Abdomen: Unremarkable Bones: Degenerative changes of the thoracic spine. CT/Chest without Contrast IMPRESSION: Coronary artery calcification (CAC) is is absent Mild scarring at the lung bases. No suspicious pulmonary nodule is seen. Reading Location: [place] [address]
--- OUTSIDE RECORDS SUMMARY | 2025-05-15 17:13 | XMS RPT_ITS | CCD ---
Author Organization [facility] Care Team Providers Care Tail Worker Name Role Phone LANCE FRANKEL Unavailable Unavailable LANCE FRANKEL Unavailable Unavailable Heather PAREDES, Dr. Alonso Primary Care Provider Heather PAREDES, Dr. Alonso Referring Provider Bolivar PAREDES, Dr. Flores Attending Provider Bolivar PAREDES, Dr. Flores Other Provider Heather PAREDES, Dr. Alonso Attending Provider Heather PAREDES, Shelly Broussard Primary Care Provider CHRIS NEGRETE Attending UnavailSHELLY Garcia Primary Care Unavailcarlitos Chavez MD, Dr. Enrique Snow Attending Provider Scott PAREDES, Dr. Enrique Snow Referring Provider 1( [phone] Shelly Romero Attending Unavailable Shelly Romero Referring Unavailable Shelly Romero Primary Care Unavailable Shelly Romero Attending Unavailable Shelly Romero Referring Unavailable Heather, Christangy Primary Care Unavailable Enrique Chavez Attending Unavailable Enrique Chavez Referring Unavailable Heather, Christangy Primary Care Unavailable Shelly Romero Attending Unavailable Shelly Romero Referring Unavailable Heather, Christophgeorgia Primary Care Unavailable Heather, Christophgeorgia Primary Care Unavailable Mark Lutz Attending Unavailable Shelly Romero Referring Unavailable Mark Lutz Attending Unavailable Shelly Romero Referring Unavailable Heather, Christophgeorgia Primary Care Unavailable Mark Lutz Consulting Unavailable Mark Lutz Attending Unavailable Shelly Romero Referring Unavailable RanShelly palencai Primary Care Unavailable Allergies Allergy Classification Reported Allergen(s) Allergy Type Date of Onset Reaction(s) Facility (1 source) Seasonal allergy; Translations: [SEASONAL ALLERGIES] Propensity to adverse reactions (disorder) 0 [facility] Other [place] [facility] Medications Current Medications Medication Drug Class(es) Dates Sig (Normalized) Sig (Original) 12 hr cetirizine hydrochloride 5 mg / pseudoephedrine hydrochloride 120 mg extended release oral tablet (6 sources) alpha-Adrenergic Agonist, Histamine-1 Receptor Antagonist Start: 09-25-2017 take 1 tablet by mouth every twelve hours as needed Cetirizine-Pseud oephedrine (Zyrtec-D) 5-120 mg tablet extended release 12 hr Active 1 {tbl} PO DAILY as needed for allergies September 25, 2017 12:00am Start: 09-25-2017 take [address] tablet [address] [facility] once daily, then take 1 tablet by mouth every twelve hours Cetirizine-Pseudoephedrine (Zyrtec-D) 5- 120 mg tablet extended release 12 hr Active 1 TABLET PO DAILY September 25, 2017 12:00am CETIRIZINE HCL/PSEUDOEPHEDRINE (ZYRTEC-D ORAL) (2 sources) CETIRIZINE HCL/PSEUDOEPHEDRINE (ZYRTEC-D ORAL) Take by mouth. Active cholecalciferol 0.05 mg oral capsule (12 sources) Vitamin D Start: 09-27-19 take 1 capsule by mouth twice daily Cholecalciferol (Vitamin D3) 2,000 unit capsule Active 2000 U PO TWICE A DAY September 26, 2017 12:00am Start: 09-26-2017 take 2000 [IU] by [facility] once daily Cholecalciferol (Vitamin D3) Active 2000 UNIT PO DAILY September 26, 2017 12:00am Start: 09-25-2017 End: 09-26-2017 cholecalciferol (vitamin D3) Discontinued PO September 24, 2017 11:00pm September 26, 2017 9:16am Start: 09-25-2017 End: 09-26-2017 cholecalciferol (vitamin D3) Discontinued PO September 25, 2017 12:00am September 26, 2017 10:16am fenofibrate 145 mg oral tablet (14 sources) Peroxisome Proliferator Receptor alpha Agonist Start: 09-26-2017 take 1 tablet by mouth once daily Fenofibrate Nanocrystallized (Tricor) 145 mg tablet Active 145 mg PO DAILY September 26, 2017 12:00am Start: 09-25-2017 End: 09-26-2017 fenofibrate Discontinued PO September 24, 2017 11:00pm September 26, 2017 9:16am Start: 09-25-2017 End: 09-26-2017 fenofibrate Discontinued PO September 25, 2017 12:00am September 26, 2017 10:16am fluticasone propionate 0.05 mg/actuat metered dose nasal spray (8 sources) Corticosteroid Start: 09-26-2017 Fluticasone Pr opionate (Flonase Allergy Relief) 50 mcg/actuation spray,suspension Active 1 NMA INTRANASAL NEEDED as needed for Congestion September 26, 2017 12:00am Start: 09-26-2017 Fluticasone Pr opionate (Flonase Allergy Relief) 50 mcg/actuation spray,suspension Active 1 SPRAY INTRANASAL NEEDED September 26, 2017 12:00am Start: 06-18-2015 fluticasone (F LONASE) 50 mcg/actuation nasal spray 06/18/2015 Active hydrocortisone 25 mg/ml topical cream (2 sources) Corticosteroid Start: 09-26-2017 hydrocortisone (ANUSOL-HC) 2.5 % rectal cream 09/26/2017 Active hydrocortisone 2.5 % rectal cream with applicator (3 sources) Start: 09-26-2017 hydrocortisone 2.5 % rectal cream with applicator Active % TOPICAL NEEDED September 25, 2017 11:00pm Start: 09-26-2017 hydrocortisone 2.5 % rectal cream with applicator Active % TOPICAL NEEDED September 26, 2017 12:00am Ibuprofen (2 sources) Nonsteroidal Anti-inflammatory Drug IBUPROFEN ORAL Take by mouth as needed. Active Magnesium (3 sources) Start: 09-03-19 25 take 1 tablet by mouth once daily Magnesium 250 mg tablet Active 250 mg PO DAILY September 03, 2024 1:00am 24 hr metoprolol succinate 100 mg extended release oral tablet (14 sources) beta-Adrenergic Margarita Start: 09-27-19 18 take 1 tablet by mouth twice daily Metoprolol Succinate 100 mg tablet extended release 24 hr Active 100 mg PO TWICE A DAY September 26, 2017 12:00am Start: 09-25-2017 End: 09-26-2017 metoprolol tartrate Disconti nued PO September 24, 2017 11:00pm September 26, 2017 9:16am Start: 09-25-2017 End: 09-26-2017 metoprolol tartrate Disconti nued PO September 25, 2017 12:00am September 26, 2017 10:16am multivit-minerals/FA/lycopen e (ONE-A-DAY MEN'S ORAL) (2 sources) multivit-mineral s/FA/lycopene (ONE-A-DAY MEN'S ORAL) Take by mouth. Active Multivitamin (Daily Multi-Vi tamin) tablet (3 sources) Start : 09-03 Multivitamin (Daily Multi-Vitamin) tablet Active 1 {tbl} PO DAILY September 03, 2024 1:00am Multivitamin preparation (3 sources) Start : 09-25 take 1 tablet by mouth once daily in the morning Multivitamin Active 1 TABLET PO EVERY MORNING September 24, 2017 11:00pm Start: 09-25-2017 take 1 tablet by manpreet th once daily in the morning Multivitamin Active 1 TABLET PO EVERY MORNING September 25, 2017 12:00am [place] 8-Hei-Tpu-Fish Oil (Fi sh Oil) 1,200 (144-216) mg capsule (3 sources) Start: 09-03-2024 [place] 3-Dha-Ep a-Fish Oil (Fish Oil) 1,200 (144-216) mg capsule Active 1 NMA PO DAILY September 03, 2024 1:00am microencapsulated potassium chloride 20 meq extended release oral tablet (8 sources) Start: 10-13-2017 potassium chlo ride ER (K-DUR, KLOR-CON) 20 mEq tablet 10/13/2017 Active Start: 09-25-2017 take 1 tablet by manpreet th once daily Potassium Chloride 20 mEq tablet extended release Active 20 meq PO DAILY September 25, 2017 12:00am tadalafil 5 mg oral tablet (8 sources) Phosphodiesterase 5 Inhibitor Start: 10-05-2020 Tadalafil Active MG PO October 05, 2020 12:00am Start: 02-15-2018 take 1 tablet by manpreet th once daily Tadalafil 5 mg tablet Active 5 mg PO DAILY October 05, 2020 12:00am Completed/Discontinued Medications Medication Drug Class(es) Dates Sig (Normalized) Sig (Original) ascorbic acid 1000 mg extended release oral tablet (12 sources) Vitamin C Start: 09-26-2017 End: 08-28-2024 take 1 tablet by mouth once daily Ascorbic Acid (Vitamin C) 1,000 mg tablet extended release Discontinued 1000 mg PO DAILY September 26, 2017 12:00am August 28, 2024 11:20am Start: 09-25-2017 End: 09-26-2017 ascorbic acid (vitamin C) Di scontinued PO September 24, 2017 11:00pm September 26, 2017 9:17am Start: 09-25-2017 End: 09-26-2017 ascorbic acid (vitamin C) Di scontinued PO September 25, 2017 12:00am September 26, 2017 10:17am famotidine 20 mg oral tablet (6 sources) Histamine-2 Receptor Antagonist Start: 10-29-2017 End: 08-28-2024 take 1 tablet by mouth twice daily Famotidine 20 MG tablet Discontinued 20 mg PO TWICE A DAY 60 October 29, 2017 12:00am August 28, 2024 11:19am Hydrocortisone 2.5 % cream with applicator (3 sources) Start: 09-26-2017 End: 08-28-2024 Hydrocortisone 2.5 % cream with applicator Discontinued % TOPICAL NEEDED as needed for Hemorrhoids September 26, 2017 12:00am August 28, 2024 11:19am linseed oil 1000 mg oral capsule (6 sources) Start: 09-26-2017 End: 08-28-2024 take 1 capsule by mouth twice daily Flaxseed Oil 1,000 mg capsule Discontinued 1000 mg PO TWICE A DAY September 26, 2017 12:00am August 28, 2024 11:19am lisinopril 20 mg oral tablet (14 sources) Angiotensin Converting Enzyme Inhibitor Start: 09-26-2017 End: 08-28-2024 take 1 tablet by mouth once daily Lisinopril 20 mg tablet Discontinued 20 mg PO DAILY September 26, 2017 12:00am August 28, 2024 11:19am Start: 09-25-2017 End: 09-26-2017 lisinopril Discontinued PO M arch 2017 11:00pm September 26, 2017 9:16am Start: 09-25-2017 End: 09-26-2017 lisinopril Discontinued PO M arch 2017 12:00am September 26, 2017 10:16am Multivitamin tablet (3 sources) Start: 09-25-2017 End: 02-20-2025 Multivitamin tablet Discontinued 1 {tbl} PO EVERY MORNING September 25, 2017 12:00am August 28, 2024 11:20am omeprazole 40 mg delayed release oral capsule (8 sources) Proton Pump Inhibitor Start: 12-20-2018 End: 08-28-2024 take 1 capsule by mouth once daily Omeprazole 40 mg capsule,delayed release(DR/EC) Discontinued 40 mg PO DAILY October 05, 2020 12:00am August 28, 2024 11:19am 2500 mg testosterone 0.0162 mg/mg topical gel (8 sources) Androgen Start: 10-05-2020 End: 08-28-2024 Testosterone 1.62 % (40.5 mg/2.5 gram) gel in packet Discontinued 2 NMA TOPICAL DAILY October 05, 2020 12:00am August 28, 2024 11:19am Start: 10-05-2020 Testosterone A ctive 2 PACKET TOPICAL DAILY October 05, 2020 12:00am Start: 12-04-2017 testosterone ( ANDROGEL) 50 mg / 5 g ([facility] 12/04/2017 Active Vitamins B1 B6 B12 tablet (3 sources) Start: 08-28-2024 End: 09-03-2024 Vitamins B1 B6 B12 tablet Discontinued {tbl} PO August 28, 2024 1:00am September 03, 2024 10:53am Problems Active Problems Problem Classification Problem Date Documented Da te Episodic/Chronic Anal and rectal conditions (8 sources) Anal fistula; Translations: [Anal fistula] Onset: 10-24-2024 08-28-2024 Episodic Essential hypertension (9 sources) Hypertensive disorder; Translations: [Essential (primary) hypertension] Onset: 05-22-2017 10-27-2017 Chronic Comment on above: CONTROLLED ON MED Hemorrhoids (14 sources) Hemorrhoids; Translations: [Unspecified hemorrhoids] Onset: 10-24-2024 10-27-2017 Episodic Comment on above: surgery- 2011 Other endocrine disorders (6 sources) Male hypogonadism; Translations: [Testicular hypofunction] 10-05-2020 Chronic Other liver diseases (1 source) Fatty (change of) liver, not elsewhere classified; Translations: [Fatty (change of) liver, not elsewhere classified] Onset: 11-14-2024 Chronic Other lower respiratory disease (1 source) Solitary pulmonary nodule; Translations: [Solitary pulmonary nodule] Onset: 05-12-2025 Episodic Pancreatic disorders (not diabetes) (6 sources) Pancreatitis; Translations: [Acute pancreatitis without necrosis or infection, unspecified] 10-27-2017 Episodic Residual codes; unclassified (6 sources) Sleep apnea; Translations: [Sleep apnea, unspecified] 10-27-2017 Chronic Spondylosis; intervertebral disc disorders; other back problems (6 sources) Back problem; Translations: [Dorsopathy, unspecified] 10-27-2017 Episodic Unclassified (1 source) Anal fistula, unspecified; Translations: [Anal fistula, unspecified] Onset: 08-28-2024 Viral infection (2 sources) Anal warts; Translations: [Anogenital (venereal) warts] Onset: 10-24-2024 10-24-2024 Episodic Past or Other Problems Problem Classification Problem Date Documented Da te Episodic/Chronic Blindness and vision defects (2 sources) Disorder of refraction; Translations: [Unspecified disorder of refraction] Onset: 10-23-2017 10-23-2017 Episodic Other eye disorders (2 sources) Disorder of lacrimal gland; Translations: [Dry eye syndrome of bilateral lacrimal glands] Onset: 10-23-2017 10-23-2017 Episodic Other screening for suspected conditions (not mental disorders or infectious disease) (9 sources) Patient encounter status; Translations: [Encounter for screening for malignant neoplasm of colon] Onset: 05-22-2017 08-28-2024 Episodic Unclassified (6 sources) prostate issues 02-06-2022 Results Test Name Value Interpretation Reference Range Facility L501.5101 11-12-2024 GGTP 465 IU/L Abnormal 0-65 [facility] Comment on above: Order Comment: MEREDITH Mark USE GREEN TOP IN LAB TO SEND OUT GGTP PER ADD ON BY Result Comment: Perf ormed at: - [facility] [address] [id number] Oil Field Tester: Stu Barkley PhD, Phone: [phone] Performed By: #### L 501.5101, L590.9910 #### [facility] [address] [place] [address], [address] Gamma glutamyl transferase ( GGT) measurementOrdered By: Enrique Chavez on 11-10-2024 Amylase [Catalytic activity/Vol] 465 U/L High 0-65 [facility] Comment on above: Performed at: - [address] [id number] Director: Stu Barkley PhD, Phone: [phone] PSA,Total - Annual Screenon 11-10-2024 PSA,TOT SCREEN 0.36 ng/mL Normal 0.02-4.00 [facility] Comment on above: Result Comment: This test was performed using the [facility] [employer] tPSA method. Measured values of a patient??sample can vary depending on the testing procedure used. PSA values determined on patient samples by different testing procedures cannot be used interchangeably. If there is a change in PSA assays while monitoring therapy, sequential testing should be performed to confirm baseline values. Performed By: #### L 501.5101, L501.9910 #### [facility] [address] [place], [place], [address] ABD Limited w/ Elastographyo n 11-04-2024 ABD Limited w/ Elastography [facility] [address] [place], [place] [address] ABD Limited w/ Elastography MR#: [id number] Acct: [id number] Name: COSTA RAMSEY Rep #: [id number] : 1970 M 54 From: Kvng Thomas MD PCP: Dr. Shelly Romero MD Status: REG CLI Study: ABD Limited w/ Elastography Date of Exam: 10/08 04/02 Exam# [id number] Ordering Dr: Shelly Romero PROCEDURE: ABD LIMITED W/ ELASTOGRAPHY, 11/04/2024 REASON FOR EXAM: FATTY LIVWER, ELEVATED LFT COMPARISON: None TECHNIQUE: Grayscale and color Doppler imaging of the right upper quadrant was performed. Elastography was performed for non-invasive assessment of liver tissue stiffness utilizing a Emulate S-shear wave imaging unit. FINDINGS: Liver: Borderline minimally echogenic. 19.5 cm in length. Gallbladder: Underdistended and suboptimally evaluated. No definite stones, sludge, significant wall thickening or pericholecystic fluid. Reportedly, sonographic Moise's was negative. Biliary tree: Unremarkable. CBD measures 3 mm. Pancreas: Partially obscured by shadowing bowel gas, grossly unremarkable as visualized. Right kidney: Unremarkable. 12.4 cm in length. Other: No visualized free fluid. Hepatic elastography: Number of measurements: 15 measurements across 3 regions, 5 measurements per region. US probe: CA1-7A. EQI median: 6.1 kPa EQI median velocity: 1.4 m/s IQR/Med: 2.7-21.2% (kPa) and 1.5-11.2% (m/s). If the IQR/Med is IQR/median >30% (for kPa) or >15% in m/s, the variance in the measurements is a large and the accuracy of the measurement may be in question. US/ABD Limited w/ Elastography IMPRESSION: 1. Borderline hepatomegaly and appearance of the hepatic parenchyma which can be seen in chronic liver disease such as hepatic steatosis. Correlate with clinical and laboratory evaluation. 2. Liver stiffness is 6.1 kPa. Per the below 2020 SRU criteria, this rules out compensated advanced chronic liver disease in the absence of other known clinical signs. If there are known clinical signs, further testing may be needed for confirmation. 3. Additional description as above. Assessment is per the Update to the SRU Liver Elastography Consensus Statement (2020) Note that the above assessment of liver fibrosis is vendor-neutral and intended for use in fibrosis related to viral etiologies and non-alcoholic fatty-liver disease (NAFLD); in causes other than viral hepatitis and NAFLD, the cutoff values are currently not well established. In some patients with NAFLD, the cutoff values for cACLD may be lower (7-9 kPa). Note also that in the setting of elevated LFTs, nonfasting or vascular congestion, the stage of lifer fibrosis may be overestimated. Previous U reference values: <1.37 m/s (5.7kPa): No to mild fibrosis 1.37 m/s - 2.2 m/s: Moderate to severe fibrosis >2.2 m/s (15kPa): Significant fibrosis / cirrhosis Reading Location: [id number] CC: Dr. Shelly Romero MD Transactional Attorney: Signed [facility] Leeann 10-30-2024 [facility] Telephone (AGGENS3) COSTA RAMSEY ([id number]) 1970 M Date Time Provider Department 10/30/24 CHRIS NEGRETE AGGENS3 During your visit today, we recorded the following information about you: Maria L Omer 10/30/2024 4:08 PM Signed Called the patient and left a voice message asking the patient to call the office back tos schedule his Procedure. Maria L Rice 11/04/2024 11:33 AM Signed Called and spoke to the patient and he asked to call the office back later to schedule his Procedure. Maria L Omer Allergies As of Date: 10/30/2024 Noted Allergy Reaction SEASONAL ALLERGIES 06/26/2020 16 - Unknown Date Reviewed: 10/24/2024 Reviewed by: Chris Negrete MD - Fully Assessed Reason for Visit: Schedule Procedure [Other] Prescriptions as of 11/04/2024 - multivit-minerals/FA/ lycopene (ONE-A-DAY MEN'S ORAL) Take by mouth. - Omeprazole 40 mg capsule Take 1 capsule by mouth once daily. - CIALIS 5 mg tablet - testosterone (ANDROGEL) 50 mg / 5 g (1%) glpk - hydrocortisone (ANUSOL-HC) 2.5 % rectal cream - fenofibrate nanocrystallized (TRICOR) 145 mg tablet - lisinopril (ZESTRIL, PRINIVIL) 20 mg tablet - metoprolol succinate ER (TOPROL XL) 100 mg Tb24 twice daily. - potassium chloride ER (K-DUR, KLOR-CON) 20 mEq tablet - fluticasone (FLONASE) 50 mcg/actuation nasal spray - CETIRIZINE HCL/PSEUDOEPHEDRINE (ZYRTEC-D ORAL) Take by mouth. - IBUPROFEN ORAL Take by mouth as needed. Meds Comments as of 10/23/2017: 10/23/17 The medications are managed by this patient by: PATIENT Chad Lay Problem List As Of Date 10/30/2024 Noted Resolved Dry eye syndrome of bilateral lacrimal glands [*10/23/2017 Refractive error [H52.7] 10/23/2017 Encounter for screening for malignant neoplasm *05/22/2017 Essential (primary) hypertension [I10] 05/22/2017 Encounter Status:Closed by MARIA L OMER on 10/30/24 Normal [facility] Hepatitis Panel Acuteon 10-08 COMMENT Comment Normal . [facility] Comment on above: Order Comment: Order Date: 10/21/24 Order Info: 2324-2 - GGTP Order Info: [id number] - HEPATITIS ACUTE PANEL Result Comment: Not infected with HCV unless early or acute infection is suspected (which may be delayed in an immunocompromised individual), or other evidence exists to indicate HCV infection. Performed By: #### L 3000.0375 #### [facility] [address] [place], [address] HEP B CORE,IgM Negative Normal Negative [facility] Comment on above: Order Comment: Order Date: 10/21/24 Order Info: 2324-2 - GGTP Order Info: [id number] - HEPATITIS ACUTE PANEL Performed By: #### L 3000.0375 #### [facility] [address] [place], [address] HEP B SURF AG Negative Normal Negative [facility] Comment on above: Order Comment: Order Date: 10/21/24 Order Info: 2324-2 - GGTP Order Info: [id number] - HEPATITIS ACUTE PANEL Performed By: #### L 3000.0375 #### [facility] [address] [place], [address] HEP C VIRUS AB Non-Reactive Normal Non Reactive [facility] Comment on above: Order Comment: Order Date: 10/21/24 Order Info: 2324-2 - GGTP Order Info: [id number] - HEPATITIS ACUTE PANEL Performed By: #### L 3000.0375 #### [facility] [address] [place], [address] HEPATITIS A-IgM Negative Normal Negative [facility] Comment on above: Order Comment: Order Date: 10/21/24 Order Info: 2324-2 - GGTP Order Info: [id number] - HEPATITIS ACUTE PANEL Result Comment: A ne gative anti-HAV IgM result suggests no recent or current HAV infection. Performed By: #### L 3000.0375 #### [facility] [address] [place], [address] CNOVon 10-24-2024 CNOV Office Visit (AGGHWB ) COSTA RAMSEY ([id number]) 1970 Date Time Provider Department 10/24/24 9:00 AM CHRIS NEGRETE AGGHWB During your visit today, we recorded the following information about you: Pulse Blood pressure Weight 76/minute 111/65 104.8 kg Chris Negrete MD 10/24/2024 9:37 AM Signed Chris Negrete M.D. Colon AND Rectal Surgery [address] [facility], [address] [place] [id number] SUBJECTIVE Costa Ramsey is a 54 year old White male with anal fistula, hemorrhoid HPI The patient was referred by Dr Mark Lutz for my consultation regarding perianal fistula and hemorrhoids. My final recommendations will be communicated back to the requesting physician by way of shared Medical record or letter to requesting physician via electronic or US mail. The patient is a pleasant 54-year-old male who has had perianal issues going back to 2009 when he had an abscess. For this he was evaluated with his primary care physician and they prescribed antibiotics and asked him to do warm compresses. They did not drain at the time but it did spontaneously drain shortly after. Ever since this he has had a small intermittent amount of drainage, but noting that for the last few years this is slowly worsened. Currently he has to clean up a small amount of drainage 3-4 times a day. He finds this fairly bothersome. He does not wear a pad. He denies issues with fecal incontinence. He had a recent colonoscopy with Dr. Lutz with no major findings He does have a history of Doppler guided hemorrhoid artery ligation in the past and notes that several of the hemorrhoids did improve between this and some dietary changes but he has 1 anterior hemorrhoid that is still bothersome Review of Systems Constitutional: Negative for chills, fever and weight loss. HENT: Negative for congestion, hearing loss and sore throat. Eyes: Negative for blurred vision. Respiratory: Negative for cough, shortness of breath, wheezing and stridor. Cardiovascular: Negative for chest pain and palpitations. Gastrointestinal: Negative for abdominal pain, blood in stool, constipation, diarrhea, heartburn, melena, nausea and vomiting. Genitourinary: Negative for dysuria, frequency and urgency. Musculoskeletal: Negative for back pain, joint pain and neck pain. Skin: Negative for itching and rash. Neurological: Negative for tingling and headaches. Endo/Heme/Allergies: Negative for environmental allergies. Does not bruise/bleed easily. Psychiatric/Behaviora l: Negative for depression. The patient is not nervous/anxious. PAST MEDICAL HISTORY Diagnosis Date Abnormal liver enzymes 2012 NITESH (acute kidney injury) Dry eyes Environmental and seasonal allergies GERD with esophagitis Hemorrhoids History of shingles HTN (hypertension) Hypercholesterolemia Pancreatitis (HCC) Sleep apnea Vitamin D deficiency PAST SURGICAL HISTORY Procedure Laterality Date COLONOSCOPY 04/13/2016 normal colon COLONOSCOPY SCREENING EGD 12/05/2017 normal scope, biopsy consistent with reflux disease HEMORRHOID SURGERY HX 2011 REMOVE TONSIL AND ADENOI UNDER AGE 11 Social History Tobacco Use Smoking status: Former Current packs/day: 0.00 Types: Cigarettes Quit date: 12/11/2012 Years since quittin.8 Smokeless tobacco: Never Vaping Use Vaping status: current everyday user Substances: Nicotine Devices: Disposable Substance Use Topics Alcohol use: Yes Drug use: Never FAMILY HISTORY Problem Relation Age of Onset Cataract Father Hypertension Father Cataract Mother Hypertension Mother Diabetes Mother The ROS, medical, surgical, family, and social history were reviewed by Chris Negrete MD ALLERGIES Allergen Reactions Seasonal Allergies Unknown Current Outpatient Medications Medication Sig multivit-minerals/FA/ lycopene (ONE-A-DAY MEN'S ORAL) Take by mouth. CIALIS 5 mg tablet fenofibrate nanocrystallized (TRICOR) 145 mg tablet metoprolol succinate ER (TOPROL XL) 100 mg Tb24 twice daily. potassium chloride ER (K-DUR, KLOR-CON) 20 mEq tablet fluticasone (FLONASE) 50 mcg/actuation nasal spray CETIRIZINE HCL/PSEUDOEPHEDRINE (ZYRTEC-D ORAL) Take by mouth. IBUPROFEN ORAL Take by mouth as needed. Omeprazole 40 mg capsule Take 1 capsule by mouth once daily. (Patient not taking: Reported on 10/24/2024) testosterone (ANDROGEL) 50 mg / 5 g (1%) glpk (Patient not taking: Reported on 10/24/2024) hydrocortisone (ANUSOL-HC) 2.5 % rectal cream (Patient not taking: Reported on 10/24/2024) lisinopril (ZESTRIL, PRINIVIL) 20 mg tablet (Patient not taking: Reported on 10/24/2024) No current facility-administered medications for this visit. OBJECTIVE BP 111/65 (BP Site: Left Arm, BP Position: Sitting, BP Cuff Size: Large Adult) Pulse 76 Wt 104.8 kg (231 lb) (more content not included)... Normal [facility] No Panel InformationOrdered By: Shelly Romero on 10-21-2024 Hepatitis C Antibody Comment Comment . [facility] Comment on above: Not infected with HC V unless early or acute infection issuspected (which may be delayed in an immunocompromisedindividual), or other evidence exists to indicate HCVinfection. Serum or plasma hepatitis B virus surface antigen detection by immunoassayOrdered By: Shelly Romeor on 10-21-2024 HBV surface Ag IA Ql Negative Negative [facility] Absolute lymphocyte countOrd ered By: Shelly Romero on 10-20-2024 Lymphocytes Auto (Unsp spec) [#/Vol] 2.97 10*3/uL 0.83-4.51 [facility] Absolute neutrophil countOrd ered By: Shelly Romero on 10-20-2024 Neutrophils (Bld) [#/Vol] 2.9 10*3/uL 2.0-7.7 [facility] Anion gap in Serum or Plasma Ordered By: Shelly Romero on 10-20-2024 Anion gap [Moles/Vol] 13 mmol/L - [facility] Automated lymphocyte count a s percentage of total leukocytesOrdered By: Shelly Romero on 10-20-2024 Lymphocytes/100 WBC Auto (Unsp spec) 44.5 % High 19- [facility] BUN/creatinine ratioOrdered By: Shelly Romero on 10-20-2024 Urea nitrogen/Creatinine [Mass ratio] 15.2 mg/mg - [facility] Basophil percentageOrdered B y: Shelly Romero on 10-20-2024 Basophils/100 WBC (Bld) 0.7 % 0-1 [facility] Bilirubin, totalOrdered By: Shelly Romero on 10-20-2024 Bilirubin [Mass/Vol] 0.30 mg/dL 0.00-1.30 [facility] CBC W/Diff, Automatedon 10-07 Absolute Lymph 2.97 X10 3/uL Normal 0.83-4.51 [facility] Comment on above: Order Comment: Order Date: 10/13/24 Order Info: 0184-1 - CBCD Performed By: #### L 500.4050, L100.0100, L500.4100 #### [facility] [address] [place], [address] Absolute Neut 2.9 X10 3/uL Normal 2.0-7.7 [facility] Comment on above: Order Comment: Order Date: 10/13/24 Order Info: 0184-1 - CBCD Performed By: #### L 500.4050, L100.0100, L500.4100 #### [facility] [address] [place], [address] Basophils/100 WBC (Bld) 0.7 % Normal 0-1 [facility] Comment on above: Order Comment: Order Date: 10/13/24 Order Info: 0184-1 - CBCD Performed By: #### L 500.4050, L100.0100, L500.4100 #### [facility] [address] [place], [address] Eosinophils/100 WBC (Bld) 2.1 % Normal 0-5 [facility] Comment on above: Order Comment: Order Date: 10/13/24 Order Info: 0184-1 - CBCD Performed By: #### L 500.4050, L100.0100, L500.4100 #### [facility] [address] [place], [address] Erythrocyte distribution width (RBC) [Ratio] 13.2 % Normal 11.6-14.6 [facility] Comment on above: Order Comment: Order Date: 10/13/24 Order Info: 0184-1 - CBCD Performed By: #### L 500.4050, L100.0100, L500.4100 #### [facility] [address] [place], [address] Hematocrit (Bld) [Volume fraction] 45.6 % Normal 40-54 [facility] Comment on above: Order Comment: Order Date: 10/13/24 Order Info: 0184-1 - CBCD Performed By: #### L 500.4050, L100.0100, L500.4100 #### [facility] [address] [place], [address] Hemoglobin (Bld) [Mass/Vol] 15.7 g/dL Normal 13.0-16.5 [facility] Comment on above: Order Comment: Order Date: 10/13/24 Order Info: 0184-1 - CBCD Performed By: #### L 500.4050, L100.0100, L500.4100 #### [facility] [address] [place], [address] IG% 0.100 Normal 0.0-0.9 [facility] Comment on above: Order Comment: Order Date: 10/13/24 Order Info: 0184-1 - CBCD Result Comment: IG% - Immature Granulocytes (promyelocytes, myelocytes and metamyelocytes) > 1% indicates that a LEFT SHIFT is Present. Performed By: #### L 500.4050, L100.0100, L500.4100 #### [facility] [address] [place], [address] Lymphocytes/100 WBC (Bld) 44.5 % High 19-41 [facility] Comment on above: Order Comment: Order Date: 10/13/24 Order Info: 0184-1 - CBCD Performed By: #### L 500.4050, L100.0100, L500.4100 #### [facility] [address] [place], [address] MCH (RBC) [Entitic mass] 29.2 pg Normal 27.0-32.0 [facility] Comment on above: Order Comment: Order Date: 10/13/24 Order Info: 0184-1 - CBCD Performed By: #### L 500.4050, L100.0100, L500.4100 #### [facility] [address] [place], [address] MCHC (RBC) [Mass/Vol] 34.4 g/dL Normal 32-36 [facility] Comment on above: Order Comment: Order Date: 10/13/24 Order Info: 0184-1 - CBCD Performed By: #### L 500.4050, L100.0100, L500.4100 #### [facility] [address] [place], [address] MCV (RBC) [Entitic vol] 84.9 fL Normal 80-94 [facility] Comment on above: Order Comment: Order Date: 10/13/24 Order Info: 0184-1 - CBCD Performed By: #### L 500.4050, L100.0100, L500.4100 #### [facility] [address] [place], [address] Monocytes/100 WBC (Bld) 9.4 % Normal 0-10 [facility] Comment on above: Order Comment: Order Date: 10/13/24 Order Info: 0184-1 - CBCD Performed By: #### L 500.4050, L100.0100, L500.4100 #### [facility] [address] [place], [address] Neutrophils/100 WBC (Bld) 43.2 % Low 47-70 [facility] Comment on above: Order Comment: Order Date: 10/13/24 Order Info: 0184-1 - CBCD Performed By: #### L 500.4050, L100.0100, L500.4100 #### [facility] [address] [place], [address] Nucleated RBC (Bld) [#/Vol] 0 10*3/uL Normal 0-5 [facility] Comment on above: Order Comment: Order Date: 10/13/24 Order Info: 0184-1 - CBCD Performed By: #### L 500.4050, L100.0100, L500.4100 #### [facility] [address] [place], [address] Platelet mean volume (Bld) [Entitic vol] 9.8 fL Normal 6.2-12.0 [facility] Comment on above: Order Comment: Order Date: 10/13/24 Order Info: 0184-1 - CBCD Performed By: #### L 500.4050, L100.0100, L500.4100 #### [facility] [address] [place], [address] Platelets (Bld) [#/Vol] 249 10*3/uL Normal 150-450 [facility] Comment on above: Order Comment: Order Date: 10/13/24 Order Info: 0184-1 - CBCD Performed By: #### L 500.4050, L100.0100, L500.4100 #### [facility] [address] [place], [address] RBC (Bld) [#/Vol] 5.37 10*6/uL Normal 4.6-6.2 [facility] Comment on above: Order Comment: Order Date: 10/13/24 Order Info: 0184-1 - CBCD Performed By: #### L 500.4050, L100.0100, L500.4100 #### [facility] [address] [place], [address] RDW SD 40.8 fl Normal 35.1-43.9 [facility] Comment on above: Order Comment: Order Date: 10/13/24 Order Info: 0184-1 - CBCD Performed By: #### L 500.4050, L100.0100, L500.4100 #### [facility] [address] [place], [address] WBC (Bld) [#/Vol] 6.7 10*3/uL Normal 4.4-11.0 [facility] Comment on above: Order Comment: Order Date: 10/13/24 Order Info: 0184-1 - CBCD Performed By: #### L 500.4050, L100.0100, L500.4100 #### [facility] [address] [place], [address] Calculated very low density lipoprotein (VLDL) cholesterol measurementOrdered By: Shelly Rmoero on 10-20-2024 Calculated very low density lipoprotein (VLDL) cholesterol measurement 25 mg/dL 5-40 [facility] VLDL Cholesterol 25 mg/dL -40 [facility] Carbon dioxide, total [Moles /volume] in Central venous bloodOrdered By: Shelly Romero on 10-20-2024 CO2 [Moles/Vol] 18.8 mmol/L Low 21.0-32.0 [facility] Chloride assayOrdered By: Vinicio Romero on 10-20-2024 Chloride [Moles/Vol] 103 mmol/L 98-108 [facility] Comprehensive Metabolic Prof ilon 10-20-2024 Albumin [Mass/Vol] 4.5 g/dL Normal 3.5-5.0 [facility] Comment on above: Order Comment: Order Date: 10/13/24 Order Info: 0786-1 - CMP Order Info: [id number] - LIPID Performed By: #### L 500.4050, L100.0100, L500.4100 #### [facility] [address] [place], [address] Albumin/Globulin [Mass ratio] 1.9 {ratio} Normal 0.9-2.4 [facility] Comment on above: Order Comment: Order Date: 10/13/24 Order Info: 0786-1 - CMP Order Info: [id number] - LIPID Performed By: #### L 500.4050, L100.0100, L500.4100 #### [facility] [address] [place], [address] ALK PHOS 116 U/L Normal 40-129 [facility] Comment on above: Order Comment: Order Date: 10/13/24 Order Info: 0786-1 - CMP Order Info: [id number] - LIPID Performed By: #### L 500.4050, L100.0100, L500.4100 #### [facility] [address] [place], [address] ALT [Catalytic activity/Vol] 69 U/L High <=46 [facility] Comment on above: Order Comment: Order Date: 10/13/24 Order Info: 0786-1 - CMP Order Info: [id number] - LIPID Performed By: #### L 500.4050, L100.0100, L500.4100 #### [facility] [address] [place], [address] AST [Catalytic activity/Vol] 48 U/L High <=37 [facility] Comment on above: Order Comment: Order Date: 10/13/24 Order Info: 0786-1 - CMP Order Info: [id number] - LIPID Performed By: #### L 500.4050, L100.0100, L500.4100 #### [facility] [address] [place], [address] Bilirubin [Mass/Vol] 0.30 mg/dL Normal 0.00-1.30 [facility] Comment on above: Order Comment: Order Date: 10/13/24 Order Info: 0786-1 - CMP Order Info: [id number] - LIPID Performed By: #### L 500.4050, L100.0100, L500.4100 #### [facility] [address] [place], [address] BUN/CRE 15.2 RATIO Normal 10-20 [facility] Comment on above: Order Comment: Order Date: 10/13/24 Order Info: 0786- - CMP Order Info: [id number] - LIPID Performed By: #### L 500.4050, L100.0100, L500.4100 #### [facility] [address] [place], [address] Calcium [Mass/Vol] 9.4 mg/dL Normal 7.6-11.0 [facility] Comment on above: Order Comment: Order Date: 10/13/24 Order Info: 0786- - CMP Order Info: [id number] - LIPID Performed By: #### L 500.4050, L100.0100, L500.4100 #### [facility] [address] [place], [address] Chloride [Moles/Vol] 103 mmol/L Normal 98-108 [facility] Comment on above: Order Comment: Order Date: 10/13/24 Order Info: 0786-1 - CMP Order Info: [id number] - LIPID Performed By: #### L 500.4050, L100.0100, L500.4100 #### [facility] [address] [place], [address] CO2 [Moles/Vol] 18.8 mmol/L Low 21.0-32.0 [facility] Comment on above: Order Comment: Order Date: 10/13/24 Order Info: 0786-1 - CMP Order Info: [id number] - LIPID Performed By: #### L 500.4050, L100.0100, L500.4100 #### [facility] [address] [place], [address] Creatinine [Mass/Vol] 1.17 mg/dL Normal 0.70-1.20 [facility] Comment on above: Order Comment: Order Date: 10/13/24 Order Info: 0786-1 - CMP Order Info: [id number] - LIPID Performed By: #### L 500.4050, L100.0100, L500.4100 #### [facility] [address] [place], [address] GAP 13 Normal 5-15 [facility] Comment on above: Order Comment: Order Date: 10/13/24 Order Info: 0786-1 - CMP Order Info: [id number] - LIPID Performed By: #### L 500.4050, L100.0100, L500.4100 #### [facility] [address] [place], [address] GFR/1.73 sq M.predicted among non-blacks MDRD (S/P/Bld) [Vol rate/Area] 74 mL/min/{1.73_m2} Normal >60 [facility] Comment on above: Order Comment: Order Date: 10/13/24 Order Info: 0786-1 - CMP Order Info: [id number] - LIPID Result Comment: mL/m in/1.73m2 CKD-EPI Creatinine Equation (2020) Performed By: #### L 500.4050, L100.0100, L500.4100 #### [facility] [address] [place], [address] Globulin (S) [Mass/Vol] 2.4 g/dL Normal 2.2-4.2 [facility] Comment on above: Order Comment: Order Date: 10/13/24 Order Info: 0786-1 - CMP Order Info: [id number] - LIPID Performed By: #### L 500.4050, L100.0100, L500.4100 #### [facility] [address] [place], [address] Glucose [Mass/Vol] 94 mg/dL Normal 70-99 [facility] Comment on above: Order Comment: Order Date: 10/13/24 Order Info: 0786-1 - CMP Order Info: [id number] - LIPID Performed By: #### L 500.4050, L100.0100, L500.4100 #### [facility] [address] [place], [address] Potassium [Moles/Vol] 4.3 mmol/L Normal 3.3-5.1 [facility] Comment on above: Order Comment: Order Date: 10/13/24 Order Info: 0786- - CMP Order Info: [id number] - LIPID Performed By: #### L 500.4050, L100.0100, L500.4100 #### [facility] [address] [place], [address] Sodium [Moles/Vol] 134 mmol/L Normal 133-145 [facility] Comment on above: Order Comment: Order Date: 10/13/24 Order Info: 0786-1 - CMP Order Info: [id number] - LIPID Performed By: #### L 500.4050, L100.0100, L500.4100 #### [facility] [address] [place], [address] T PROT 6.9 g/dL Normal 5.9-8.4 [facility] Comment on above: Order Comment: Order Date: 10/13/24 Order Info: 0786-1 - CMP Order Info: [id number] - LIPID Performed By: #### L 500.4050, L100.0100, L500.4100 #### [facility] [address] [place], [address] Urea nitrogen [Mass/Vol] 18 mg/dL Normal 4-19 [facility] Comment on above: Order Comment: Order Date: 10/13/24 Order Info: 0786-1 - CMP Order Info: [id number] - LIPID Performed By: #### L 500.4050, L100.0100, L500.4100 #### [facility] [address] [place], [address] Eosinophil percentageOrdered By: Shelly Romero on 10-20-2024 Eosinophils/100 WBC (Bld) 2.1 % 0-5 [facility] Erythrocyte distribution wid th (RBC) [Ratio]Ordered By: Shelly Romero on 10-20-2024 Erythrocyte distribution width (RBC) [Entitic vol] 40.8 fL 35.1-43.9 [facility] Erythrocyte distribution wid th ratioOrdered By: Shelly Romero on 10-20-2024 Erythrocyte distribution width (RBC) [Ratio] 13.2 % 11.6-14.6 [facility] Erythrocyte distribution wid th standard deviationOrdered By: Shelly Romero on 10-20-2024 Erythrocyte distribution width (RBC) [Ratio] 40.8 fl 35.1-43.9 [facility] GFR/1.73 sq M.predicted david g non-blacks MDRD (S/P/Bld) [Vol rate/Area]Ordered By: Shelly Romero on 10-20-2024 Estimated GFR (MDRD) Non-Af Amer 74 >60 [facility] Comment on above: mL/min/1.73m2 CKD-EP I Creatinine Equation (2020) Glomerular filtration rate ( GFR) estimation/1.73 sq m using serum, plasma, or whole bOrdered By: Shelly Romero on 10-20-2024 GFR/1.73 sq M.predicted among non-blacks MDRD (S/P/Bld) [Vol rate/Area] 74 mL/min/{1.73_m2} >60 [facility] Comment on above: mL/min/1.73m2 CKD-EP I Creatinine Equation (2020) Hematocrit Auto (Bld) [Volum e fraction]Ordered By: Shelly Romero on 10-20-2024 Hematocrit (Bld) [Volume fraction] 45.6 % 40-54 [facility] Hemoglobin measurementOrdere d By: Shelly Romero on 10-20-2024 Hemoglobin (Bld) [Mass/Vol] 15.7 g/dL 13.0-16.5 [facility] Immature granulocytes/100 WB C Auto (Bld)Ordered By: Shelly Romero on 10-20-2024 Immature granulocytes/100 WBC (Bld) 0.100 % 0.0-0.9 [facility] Comment on above: IG% - Immature Granu locytes (promyelocytes, myelocytes and metamyelocytes) > 1% indicates that a LEFT SHIFT is Present. LDL calc ser/plasOrdered By: Shelly Romero on 10-20-2024 Cholesterol in LDL [Mass/Vol] 101 mg/dL [facility] Comment on above: Ncrewwamow=781-436 m g/dL & Higher Myih=805 mg/dL or greater LDL Cholesterol, Calculated 101 mg/dL [facility] Comment on above: Gjfvydntxn=127-126 m g/dL & Higher Drwf=719 mg/dL or greater Laboratory - Chemistry and C hemistry - challengeOrdered By: Shelly Romero on 10-20-2024 AST [Catalytic activity/Vol] 48 U/L High <38 [facility] Lipid Profileon 10-20-2024 CHOL:HDL 4.37 Normal [facility] Comment on above: Order Comment: Order Date: 10/13/24 Order Info: 0786-1 - CMP Order Info: [id number] - LIPID Performed By: #### L 500.4050, L100.0100, L500.4100 #### [facility] [address] [place], [address] Cholesterol [Mass/Vol] 163 mg/dL Normal <=200 [facility] Comment on above: Order Comment: Order Date: 10/13/24 Order Info: 0786-1 - CMP Order Info: [id number] - LIPID Result Comment: Chol esterol level, Desirable <200 mg/dL Borderline high cholesterol 200-239 mg/dL High cholesterol >=240 mg/dL Recommendations of the NCEP Adult Treatment Panel for the following risk-cutoff thresholds for the [place] population. Performed By: #### L 500.4050, L100.0100, L500.4100 #### [facility] [address] [place], [address] Cholesterol in HDL [Mass/Vol] 37 mg/dL Low [facility] Comment on above: Order Comment: Order Date: 10/13/24 Order Info: 0786-1 - CMP Order Info: [id number] - LIPID Result Comment: Pema onal Cholesterol Education Program (NCEP) guidelines: <40 mg/dL: Low HDL-cholesterol (major risk factor for CHD) >= 60 mg/dL: High HDL-cholesterol (negative risk factor for CHD) HDL-cholesterol is affected by a number of factors, e.g. smoking, exercise, hormones, sex and age. Performed By: #### L 500.4050, L100.0100, L500.4100 #### [facility] [address] [place], [address] Cholesterol in LDL [Mass/Vol] 101 mg/dL Normal [facility] Comment on above: Order Comment: Order Date: 10/13/24 Order Info: 0786-1 - CMP Order Info: [id number] - LIPID Result Comment: Bord eckgsb=017-524 mg/dL Higher Njcr=949 mg/dL or greater Performed By: #### L 500.4050, L100.0100, L500.4100 #### [facility] [address] [place], [address] Cholesterol in VLDL [Mass/Vol] 25 mg/dL Normal 5-40 [facility] Comment on above: Order Comment: Order Date: 10/13/24 Order Info: 0786-1 - CMP Order Info: [id number] - LIPID Performed By: #### L 500.4050, L100.0100, L500.4100 #### [facility] [address] [place], [address] Triglyceride [Mass/Vol] 124 mg/dL Normal [facility] Comment on above: Order Comment: Order Date: 10/13/24 Order Info: 0786-1 - CMP Order Info: [id number] - LIPID Result Comment: The drugs N-Acetylcysteine and Metamizole may falsely depress this assay. Normal range: <150 mg/dL Borderline High: 150-199 mg/dL High: 200-499 mg/dL Very High: >500 mg/dL Performed By: #### L 500.4050, L100.0100, L500.4100 #### [facility] [address] [place], [address] Lymphocytes Auto (Unsp spec) [#/Vol]Ordered By: Shelly Romero on 10-20-2024 Lymphocytes (Bld) [#/Vol] 2.97 10*3/uL 0.83-4.51 [facility] Lymphocytes/100 WBC Auto (Un sp spec)Ordered By: Shelly Romero on 10-20-2024 Lymphocytes/100 WBC (Bld) 44.5 % High 19-41 [facility] MCV (mean corpuscular volume ) determinationOrdered By: Shelly Romero on 10-20-2024 MCV (RBC) [Entitic vol] 84.9 fL 80-94 [facility] Mean corpuscular hemoglobin (MCH) determinationOrdered By: Shelly Romero on 10-20-2024 MCH (RBC) [Entitic mass] 29.2 pg 27.0-32.0 [facility] Mean corpuscular hemoglobin concentration (MCHC) determinationOrdered By: Shelly Romero on 10-20-2024 MCHC (RBC) [Mass/Vol] 34.4 g/dL 32-36 [facility] Mean platelet volume determi nationOrdered By: Shelly Romero on 10-20-2024 Platelet mean volume (Bld) [Entitic vol] 9.8 fL 6.2-12.0 [facility] Monocyte percentageOrdered B y: Shelly Romero on 10-20-2024 Monocytes/100 WBC (Bld) 9.4 % 0-10 [facility] Neutrophil percentageOrdered By: Shelly Romero on 10-20-2024 Neutrophils/100 WBC (Bld) 43.2 % Low 47-70 [facility] Nucleated red blood cell per centageOrdered By: Shelly Romero on 10-20-2024 Nucleated RBC/100 WBC (Bld) [Ratio] 0 % 0-5 [facility] Platelet countOrdered By: Vinicio Romero on 10-20-2024 Platelets (Bld) [#/Vol] 249 10*3/uL 150-450 [facility] Potassium (Unsp spec) [Mass/ Vol]Ordered By: Shelly Romero on 10-20-2024 Potassium [Moles/Vol] 4.3 mmol/L 3.3-5.1 [facility] Potassium measurement (mass/ volume)Ordered By: Shelly Romero on 10-20-2024 Potassium (Unsp spec) [Mass/Vol] 4.3 mmol/L 3.3-5.1 [facility] RBC Auto (Bld) [#/Vol]Ordere d By: Shelly Romero on 10-20-2024 RBC (Bld) [#/Vol] 5.37 10*6/uL 4.6-6.2 [facility] Screening total cholesterol/ high density lipoprotein (HDL) cholesterol ratioOrdered By: Shelly Romero on 10-20-2024 Cholesterol.total/Choles terol in HDL [Mass ratio] 4.37 {ratio} [facility] Serum creatinine measurement (mass/volume)Ordered By: Shelly Romero on 10-20-2024 Creatinine [Mass/Vol] 1.17 mg/dL 0.70-1.20 [facility] Serum globulin measurementOr dered By: Shelly Romero on 10-20-2024 Globulin (S) [Mass/Vol] 2.4 g/dL 2.2-4.2 [facility] Serum glucose measurement (m ass/volume)Ordered By: Shelly Romero on 10-20-2024 Glucose [Mass/Vol] 94 mg/dL 70-99 [facility] Serum or plasma alanine costa otransferase (ALT) measurementOrdered By: Shelly Romero on 10-20-2024 ALT [Catalytic activity/Vol] 69 U/L High <47 [facility] Serum or plasma albumin steven urement (mass/volume)Ordered By: Shelly Romero on 10-20-2024 Albumin [Mass/Vol] 4.5 g/dL 3.5-5.0 [facility] Serum or plasma albumin/glob ulin mass ratioOrdered By: Shelly Romero on 10-20-2024 Albumin/Globulin [Mass ratio] 1.9 {ratio} 0.9-2.4 [facility] Serum or plasma alkaline jamar sphatase measurementOrdered By: Shelly Romero on 10-20-2024 ALP [Catalytic activity/Vol] 116 U/L 40-129 [facility] Serum or plasma calcium steven urement (mass/volume)Ordered By: Shelly Romero on 10-20-2024 Calcium [Mass/Vol] 9.4 mg/dL 7.6-11.0 [facility] Serum or plasma cholesterol in HDL measurement (mass/volume)Ordered By: Shelly Romero on 10-20-2024 Cholesterol in HDL [Mass/Vol] 37 mg/dL Low >40 [facility] Comment on above: National Cholesterol Education Program (NCEP) guidelines:<40 mg/dL: Low HDL-cholesterol (major risk factor for CHD)>= 60 mg/dL: High HDL-cholesterol (negative risk factor for CHD)HDL-cholesterol is affected by a number of factors, e.g. smoking, exercise, hormones, sex and age. Serum or plasma cholesterol measurement (mass/volume)Ordered By: Shelly Romero on 10-20-2024 Cholesterol [Mass/Vol] 163 mg/dL <201 [facility] Comment on above: Cholesterol level, D esirable <200 mg/dLBorderline high cholesterol 200-239 mg/dLHigh cholesterol >=240 mg/dLRecommendations of the NCEP Adult Treatment Panel for the following risk-cutoff thresholds for the [place] population. Serum or plasma urea nitroge n measurement (mass/volume)Ordered By: Shelly Romero on 10-20-2024 Urea nitrogen [Mass/Vol] 18 mg/dL 4-19 [facility] Sodium levelOrdered By: Daniel Romero on 10-20-2024 Sodium [Moles/Vol] 134 mmol/L 133-145 [facility] Total proteinOrdered By: Jocelyne beerosalinda Heather on 10-20-2024 Protein [Mass/Vol] 6.9 g/dL 5.9-8.4 [facility] Triglycerides measurementOrd ered By: Shelly Romero on 10-20-2024 Triglyceride [Mass/Vol] 124 mg/dL <199 [facility] Comment on above: The drugs N-Acetylcy steine and Metamizole may falsely depress this assay. Normal range: <150 mg/dLBorderline High: 150-199 mg/dLHigh: 200-499 mg/dLVery High: >500 mg/dL White blood cell (WBC) count Ordered By: Shelly Romero on 10-20-2024 WBC (Bld) [#/Vol] 6.7 10*3/uL 4.4-11.0 [facility] Colonoscopy Reporton 025 Colonoscopy Report [facility] Medical Records Department [address] [place] [address] Colonoscopy Report MR#: [id number] Acct: [id number] Name: COSTA RAMSEY Rep #: [id number] : 1970 53 From: Mark Lutz MD PCP: Dr. Shelly Romero MD Status:[facility] Patient Name: Costa Ramsey Procedure Date: 09/09/2024 8:34 AM Date of : 1970 Age: 53 Procedure: Colonoscopy Indications: Screening for colorectal malignant neoplasm Providers: Mark Lutz MD Referring MD: Scooter Romero Medicines: Propofol per Anesthesia Patient Profile: This is a 53 year old male. Refer to note in patient chart for documentation of history and physical. Last Colonoscopy: 10 years ago. Complications: No immediate complications. Procedure: Pre-Anesthesia Assessment: - Prior to the procedure, a History and Physical was performed, and patient medications and allergies were reviewed. The patient's tolerance of previous anesthesia was also reviewed. The risks and benefits of the procedure and the sedation options and risks were discussed with the patient. All questions were answered, and informed consent was obtained. Prior Anticoagulants: The patient has taken no anticoagulant or antiplatelet agents. After reviewing the risks and benefits, the patient was deemed in satisfactory condition to undergo the procedure. After I obtained informed consent, the scope was passed under direct vision. Throughout the procedure, the patient's blood pressure, pulse, and oxygen saturations were monitored continuously. The Colonoscope was introduced through the anus and advanced to the cecum, identified by appendiceal orifice and ileocecal valve. The colonoscopy was performed without difficulty. The patient tolerated the procedure well. The quality of the bowel preparation was good. The ileocecal valve, appendiceal orifice, and rectum were photographed. Scope In: 8:47:54 AM Scope Withdrawal Time 0 hours 6 minutes 48 seconds Scope Out: 8:57:52 AM Total Procedure Duration Time 0 hours 9 minutes 58 seconds Findings: The entire examined colon appeared normal on direct and retroflexion views. Impression: - The entire examined colon is normal on direct and retroflexion views. - No specimens collected. Recommendation: - Discharge patient to home. - Resume previous diet. - Continue present medications. - Repeat colonoscopy in 10 years for screening purposes. Procedure Code(s): --- Professional --- 70947, Colonoscopy, flexible; diagnostic, including collection of specimen(s) by brushing or washing, when performed (separate procedure) Diagnosis Code(s): --- Professional --- Z12.11, Encounter for screening for malignant neoplasm of colon CPT copyright 2021 [employer]. All rights reserved. The codes documented in this report are preliminary and upon administration dean review may be revised to meet current compliance requirements. Makr Lutz MD 09/09/2024 9:00:08 AM This report has been signed electronically. Number of Addenda: 0 Note Initiated On: 09/09/2024 8:34 AM 09/09/24 0900 Date Mark Gutierrezign Signature: Date (if indicated) CC: Dr. Mark Lutz MD; Dr. Shelly Romero MD Date Dictated: 09/09/24833 Date Transcribed: Transactional Attorney: Signed [facility] MR/POSTOP.ANEon 09-09-2024 MR/POSTOP.[facility] Medical Records Department [address] [place] [address] Anesthesia Postop Eval I 09/09/24900 MR#: [id number] Acct: [id number] Name: ROYXCOSTABETINA ALCANTARA Rep #: [id number] : 1970 53 From: Ladi Calvo PCP: Dr. Shelly Romero MD Status:REG SDC Y Race: C Location: [place] [address] Anesthesia: Postop Eval I Current Vital Signs Temperature: 97.1 F Pulse Rate: 75 Blood Pressure: 110/71 Respiratory Rate: 16 Pulse Ox: 95 Assessment Airway patent: Yes Spontaneous unlabored respirations: Yes nausea: No Vomiting: No Anesthesia Complication: No Fluid Hydration Crystalloid volume administer (ml): 0 Total IV fluid infused: 0 Progress Note Anesthesia document: Postop Eval 1 completed: Yes 09/09/24926 Date Ladi Sellers Signature: Date CC: Signed [facility] MR/GUMOMWWO7hl 09-09-2024 MR/POSTOPAN2 [facility] Medical Records Department [address] [place] [address] Anesthesia Postop Eval II 09/09/24926 MR#: [id number] Acct: [id number] Name: COSTA RAMSEY Rep #: [id number] : 1970 53 From: Ladi Calvo PCP: Dr. Shelly Romero MD Status:REG SDC Y Race: C Location: [place] [address] Anesthesia Postop Eval I Sum Postop Eval Completion status Anesthesia document: Postop Eval 1 completed: Yes Anesthesia Postop Eval I Summary Anesthesia Postop Eval I Summary: Anesthesia Postop Eval I: Assessment Summary Airway patent Yes 09/09/24 09:26 WHARF TENDER HELPER.CSIR Spontaneous unlabored Yes 09/09/24 09:26 WHARF TENDER HELPER.CSIR respirations Mental status nausea No 09/09/24 09:26 WHARF TENDER HELPER.CSIR Vomiting No 09/09/24 09:26 WHARF TENDER HELPER.CSIR Anesthesia Postop Eval I: Fluid Summary Crystalloid volume administer 0 09/09/24 09:26 WHARF TENDER HELPER.CSIR (ml) Colloids volume administered ( ml) Blood Product volume administered (ml) Total IV fluid infused 0 09/09/24 09:26 WHARF TENDER HELPER.CSIR Anesthesia Postop Eval I: Summary Notes Anesthesia Complication No 09/09/24 09:26 WHARF TENDER HELPER.CSIR Anesthesia Complication Comment: Post-operative progress note Anesthesia: Postop Eval II Evaluation Mental status: Awake and Calm Pain Level: 0 nausea: No Vomiting: No 09/09/24926 Date Ladi Sellers Signature: Date CC: Signed Normal [facility] Surgery Visit Reporton 08-28 Surgery Visit Report [facility] [address] [place] [address]. [address] [place] [address] OFFICE VISIT Date of Service: 08/28/24 MR#: [id number] Acct: [id number] Name: COSTA RAMSEY Rep #: [id number] : 1970 Provider: Dr. Mark loza MD Age/Sex: 53/M Location: [facility] Status: Signed with Addenda ADDENDUM by Lynsey Gibbs on 08/28/24 at 1047 Intake Chief Complaint: fistula Allergies No Known Allergies Allergy (Verified 08/28/24 10:19) Medications ???Medication ???Instructions ???Recorded ???Confirmed ???Type cetirizine 5 mg-pseudoephedrine ER 1 tab PO DAILY allergies 8 08/28/24 History 120 mg tablet,extended release,12hr (Zyrtec-D) potassium chloride 20 mEq 20 meq PO DAILY potassium 09/25/17 08/28/24 History tablet,extended release replacement cholecalciferol (vitamin D3) 50 2,000 unit PO DAILY daily vitamin 09/26/17 08/28/24 History mcg (2,000 unit) capsule fenofibrate nanocrystallized 145 145 mg PO DAILY cholesterol 08/28/24 History mg tablet (Tricor) fluticasone propionate 50 1 spray intranasal PRN PRN 8 08/28/24 History mcg/actuation nasal Congestion spray,suspension (Flonase Allergy Relief) metoprolol succinate 100 mg 100 mg PO BID blood pressure 09/2608/28/24 History tablet,extended release 24 hr tadalafil 5 mg tablet mg PO 10/05/20 08/28/24 History vitamins B1 B6 B12 tablet tab PO 08/28/24 08/28/24 History Assessment and Plan Assessment and Plan (1) Screen for colon cancer: Status: Acute (2) Anal fistula: Status: Acute Orders: Orders Colonoscopy Today Z12.11 - Encounter for screening for malignant neoplasm of colon Referrals Colon Rectal Surgery K60.30 - Anal fistula, unspecified 08/28/24 1048 Date Mark Lutz MD cc: Dr. 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 Is patient in pain?: No Allergies No Known Allergies Allergy (Verified 08/28/24 10:19) Medications ???Medication ???Instructions ???Recorded ???Confirmed ???Type cetirizine 5 mg-pseudoephedrine ER 1 tab PO DAILY allergies 8 08/28/24 History 120 mg tablet,extended release,12hr (Zyrtec-D) potassium chloride 20 mEq 20 meq PO DAILY potassium 09/25/17 08/28/24 History tablet,extended release replacement cholecalciferol (vitamin D3) 50 2,000 unit PO DAILY daily vitamin 09/26/17 08/28/24 History mcg (2,000 unit) capsule fenofibrate nanocrystallized 145 145 mg PO DAILY cholesterol 08/28/24 History mg tablet (Tricor) fluticasone propionate 50 1 spray intranasal PRN PRN 8 08/28/24 History mcg/actuation nasal Congestion spray,suspension (Flonase Allergy Relief) metoprolol succinate 100 mg 100 mg PO BID blood pressure 09/2608/28/24 History tablet,extended release 24 hr tadalafil 5 mg tablet mg PO 10/05/20 08/28/24 History vitamins B1 B6 B12 tablet tab PO 08/28/24 08/28/24 History Have you fallen in the past year?: No PFSH Medical History (Updated 08/28/24 @ 10:[address] Mark Lutz MD) Anal fistula Male hypogonadism Skin cancer prostate issues High triglycerides High cholesterol Frequent headaches Gastrointestinal problem GERD (gastroesophageal reflux disease) Arthritis Seasonal allergies Rectal pain Sleep apnea Hemorrhoids Hypertension Back problem Surgical History Hemorrhoid S/P tonsillectomy and adenoidectomy Family History Mother Diabetes Hypertension Cancer skin Father Heart disease Cancer Skin Multiple myeloma Hypertension Other Anxiety Arthritis Bowel disease Breast cancer CVA (cerebral vascular accident) Depression High cholesterol Hormone deficiency Liver disease Myocardial infarction Osteoporosis Thyroid disorder blood clots blood transfusion Social History Smoking Status: Former smoker second hand exposure: No alcohol intake: current alcohol intake frequency: holidays/special occasions only substance use type: does not use caffeine: Yes what type of physical activity do you participate in: other frequency: does not exercise seatbelt use: always HPI HPI HPI: Patient is a 53-year-old male here for screening colonoscopy and for his rectal fistula. The patient has a large rectal fistula to t (more content not included)... Normal [facility] Basophil percentageOrdered B y: Shelly Romero on 10-16-2023 Bilirubin [Mass/Vol] 0.40 mg/dL 0.20-1.00 [facility] Comment on above: For patients on eltr ombopag therapy, use of Dimension [place] TBIL is not recommended. Chloride [Moles/Vol] 111 mmol/L 98-107 [facility] Glucose [Mass/Vol] 111 mg/dL 74-106 [facility] Comment on above: Fasting Glucose resu lt from 100 to 125 mg/dL suggests IMPAIRED HOMEOSTASIS per A.D.A. criteria. Potassium [Moles/Vol] 3.9 mmol/L 3.5-5.1 [facility] Protein [Mass/Vol] 7.2 g/dL 6.4-8.2 [facility] Sodium [Moles/Vol] 139 mmol/L 136-145 [facility] Laboratory - Chemistry and C hemistry - challengeOrdered By: Shelly Romero on 10-16-2023 Albumin/Globulin [Mass ratio] 1.2 {ratio} 0.9-2.4 [facility] ALP [Catalytic activity/Vol] 95 U/L 45-117 [facility] ALT [Catalytic activity/Vol] 67 U/L 16-61 [facility] Amylase [Catalytic activity/Vol] 474 U/L 15-85 [facility] CO2 [Moles/Vol] 19.0 mmol/L 21.0-32.0 [facility] Globulin (S) [Mass/Vol] 3.2 g/dL 2.2-4.2 [facility] Urea nitrogen/Creatinine [Mass ratio] 18.3 mg/mg 10-20 [facility] No Panel InformationOrdered By: Shelly Romero on 10-16-2023 Estimated GFR (MDRD) Amer 77 mL/min >60 [facility] Comment on above: GFR Calc Estimated GFR (MDRD) Non-Af Amer 63 mL/min >60 [facility] Comment on above: Non- GFR Calc Serum or plasma calcium steven urement (mass/volume)Ordered By: Shelly Romero on 10-16-2023 Calcium [Mass/Vol] 9.0 mg/dL 8.5-10.1 [facility] Serum or plasma creatinine m easurement (mass/volume)Ordered By: Shelly Romero on 10-16-2023 Creatinine [Mass/Vol] 1.26 mg/dL 0.70-1.30 [facility] Comment on above: The validity of the calculated GFR & GFRAA in patients over 70 years has not been determined. Clinical correlation is essential. Serum or plasma urea nitroge n measurement (mass/volume)Ordered By: Shelly Romero on 10-16-2023 Urea nitrogen [Mass/Vol] 23 mg/dL 7-18 [facility] Thin prep Papanicolaou smear with manual screeningOrdered By: Shelly Romero on 10-16-2023 Thin prep Papanicolaou smear with manual screening 4.0 g/dL 3.2-5.0 [facility] Thin prep Papanicolaou smear with manual screening 31 U/L 15-37 [facility] Thin prep Papanicolaou smear with manual screening 9 5-15 [facility] Screening prostate specific antigen (PSA) measurementOrdered By: Ariana Downs on 07-24-2023 Prostate specific Ag IA [Mass/Vol] 0.34 ng/mL 0.00-4.00 [facility] Comment on above: This test was perfor med using the TPSA assay method for the[facility] chemistry system. Values obtained with differentassay methods cannot be used interchangably.When changing PSA assays in the course of monitoring apatient, additional sequential testing should be carriedout to confirm baseline values. Basophil percentageOrdered B y: Scooter Romero on 01-31-2023 Basophil percentage 3.4 mg/dL 2.5-4.9 [facility] Bilirubin [Mass/Vol] 0.40 mg/dL 0.20-1.00 [facility] Comment on above: For patients on eltr ombopag therapy, use of [place] TBIL is not recommended. Chloride [Moles/Vol] 107 mmol/L 98-107 [facility] Cholesterol [Mass/Vol] 146 mg/dL <200 [facility] Comment on above: <200 mg/dL Desirable 200-240 mg/dL Borderline >240 mg/dL High Risk Glucose [Mass/Vol] 94 mg/dL 74-106 [facility] Potassium [Moles/Vol] 4.0 mmol/L 3.5-5.1 [facility] Protein [Mass/Vol] 7.1 g/dL 6.4-8.2 [facility] Sodium [Moles/Vol] 135 mmol/L 136-145 [facility] Testosterone [Mass/Vol] 381.73 ng/dL [facility] Comment on above: CENTRAL 90% REFERENC E RANGES MALE AGE <50 197.44 - 669.58 ng/dL MALE AGE > or = 50 187.72 - 684.19 ng/dL FEMALE AGE <50 8.38 - 35.01 ng/dL FEMALE AGE > or = 50 <7.00 - 35.92 ng/dL Effective as of 02/01/21 Triglyceride [Mass/Vol] 118 mg/dL <199 [facility] Comment on above: The drugs N-Acetylcy steine and Metamizole may falsely depress this assay.Serum Triglycerides Reference Interval Normal <150 mg/dL Borderline high 150 - 199 mg/dL High 200 - 499 mg/dL Very High > or = 500 mg/dL WBC (Bld) [#/Vol] 6.3 10*3/uL 4.4-11.0 [facility] Blood erythrocytes count (nu mber/volume)Ordered By: Scooter Romero on 01-31-2023 RBC (Bld) [#/Vol] 5.46 10*6/uL 4.6-6.2 [facility] Blood hemoglobin measurement (mass/volume)Ordered By: Scooter Romero on 01-31-2023 Hemoglobin (Bld) [Mass/Vol] 15.6 g/dL 13.0-16.5 [facility] Blood platelet mean volumeOr dered By: Scooter Romero on 01-31-2023 Platelet mean volume (Bld) [Entitic vol] 9.6 fL 6.2-12.0 [facility] Determination of erythrocyte mean corpuscular volume (MCV)Ordered By: Scooter Romero on 01-31-2023 MCV (RBC) [Entitic vol] 84.4 fL 80-94 [facility] Hematocrit Auto (Bld) [Volum e fraction]Ordered By: Scooter Romero on 01-31-2023 Hematocrit (Bld) [Volume fraction] 46.1 % 40-54 [facility] Laboratory - Chemistry and C hemistry - challengeOrdered By: Scooter Romero on 01-31-2023 ALP [Catalytic activity/Vol] 116 U/L 45-117 [facility] ALT [Catalytic activity/Vol] 59 U/L 16-61 [facility] Amylase [Catalytic activity/Vol] 485 U/L 15-85 [facility] CO2 [Moles/Vol] 23.0 mmol/L 21.0-32.0 [facility] Cobalamin (Vitamin B12) [Mass/Vol] 1258 pg/mL 211-911 [facility] Globulin (S) [Mass/Vol] 3.3 g/dL 2.2-4.2 [facility] Magnesium [Mass/Vol] 2.1 mg/dL 1.6-2.6 [facility] Urea nitrogen/Creatinine [Mass ratio] 16.4 mg/mg 10-20 [facility] Laboratory - Hematology and Cell countsOrdered By: Scooter Romero on 01-31-2023 Erythrocyte distribution width (RBC) [Entitic vol] 41.5 fL 35.1-43.9 [facility] Erythrocyte distribution width (RBC) [Ratio] 13.5 % 11.6-14.6 [facility] MCH (RBC) [Entitic mass] 28.6 pg 27.0-32.0 [facility] MCHC Auto (RBC) [Mass/Vol]Or dered By: Scooter Romero on 01-31-2023 MCHC (RBC) [Mass/Vol] 33.8 g/dL 32-36 [facility] No Panel InformationOrdered By: Scooter Romero on 01-31-2023 C-Peptide 4.4 ng/mL 1.1-4.4 [facility] Comment on above: C-Peptide reference interval is for fasting patients.Performed at: - [facility] [id number] Director: Stu Barkley PhD, Phone: [phone] C-Reactive Protein High Sensitivity 2.95 mg/L <3.00 [facility] Comment on above: Low Relative Risk of CVD <1.0 mg/L Average Relative Risk of CVD 1.0 - 3.0 mg/L High Relative Risk of CVD >3.0 mg/L Estimated GFR (MDRD) Amer 80 mL/min >60 [facility] Comment on above: GFR Calc Estimated GFR (MDRD) Non-Af Amer 66 mL/min >60 [facility] Comment on above: Non- GFR Calc Homocysteine 8.7 umol/L 3.2-10.7 [facility] Insulin Level 12.4 mU/L 2.6-37.6 [facility] Vitamin D 25-Hydroxy 97.2 ng/mL [facility] Comment on above: Vitamin D 25(OH) Sta tus Range Deficiency <20 ng/mL (50nmol/L) Insufficiency 20 - 30 ng/mL (50 - 75 nmol/L) Sufficiency 30 - 100 ng/mL (75 - 250 nmol/L) Toxicity >100 ng/mL (>250 nmol/L) Platelets bldOrdered By: Jocelyne Romero on 01-31-2023 Platelets (Bld) [#/Vol] 286 10*3/uL 150-450 [facility] Serum or plasma albumin steven urement (mass/volume)Ordered By: Scooter Romero on 01-31-2023 Albumin [Mass/Vol] 3.8 g/dL 3.2-5.0 [facility] Serum or plasma albumin/glob ulin mass ratioOrdered By: Scooter Romero on 01-31-2023 Albumin/Globulin [Mass ratio] 1.2 {ratio} 0.9-2.4 [facility] Serum or plasma calcium steven urement (mass/volume)Ordered By: Scooter Romero on 01-31-2023 Calcium [Mass/Vol] 8.9 mg/dL 8.5-10.1 [facility] Serum or plasma cholesterol in HDL measurement (mass/volume)Ordered By: Scooter Romero on 01-31-2023 Cholesterol in HDL [Mass/Vol] 35 mg/dL >40 [facility] Comment on above: The drugs N-Acetylcy steine and Metamizole may falsely depress this assay. Reference Range HDL <40 mg/dL Low HDL Cholesterol HDL >or= 60 mg/dL High HDL Cholesterol Serum or plasma cholesterol in VLDL measurement (mass/volume)Ordered By: Scooter Romero on 01-31-2023 Cholesterol in VLDL [Mass/Vol] 24 mg/dL 5-40 [facility] Serum or plasma creatinine m easurement (mass/volume)Ordered By: Scooter Romero on 01-31-2023 Creatinine [Mass/Vol] 1.22 mg/dL 0.70-1.30 [facility] Comment on above: The validity of the calculated GFR & GFRAA in patients over 70 years has not been determined. Clinical correlation is essential. Serum or plasma ferritin joanne surement (mass/volume)Ordered By: Scooter Romero on 01-31-2023 Ferritin [Mass/Vol] 110 ng/mL 26-388 [facility] Serum or plasma low density lipoprotein (LDL) cholesterol measurement (mass/volume)Ordered By: Scooter Romero on 01-31-2023 Cholesterol in LDL [Mass/Vol] 87 mg/dL 0-130 [facility] Serum or plasma urea nitroge n measurement (mass/volume)Ordered By: Scooter Romero on 01-31-2023 Urea nitrogen [Mass/Vol] 20 mg/dL 7-18 [facility] Thin prep Papanicolaou smear with manual screeningOrdered By: Scooter Romero on 01-31-2023 Thin prep Papanicolaou smear with manual screening 27 U/L 15-37 [facility] Thin prep Papanicolaou smear with manual screening 5 5-[address] [facility] [address] ABDOMEN AND PELVIS WITH C [facility] 10-27-2017 CT ABDOMEN AND PELVIS WITH CONTRAST Performed at [facility] APPROVED BY: RAHEEL MCMAHON MD EXAMINATION: CT ABDOMEN AND PELVIS WITH IV CONTRAST HISTORY: Intraoperative abdominal pain for 2 days. TECHNIQUE: CT of the abdomen and pelvis was performed using standard technique, scanning from just above the dome of the diaphragm to the symphysis pubis.M: CTAP_1 Contrast:IV: 150 ml of Omnipaque 300Oral: None CT Radiation dose: Integrated Dose-length product (DLP) for this visit = 751 mGy*cm. COMPARISON: 09/14/2011 RESULT: Stock Checkerer: Unremarkable Lower Thorax: Dependent atelectasis. Liver: No focal hepatic lesion. Biliary: The gallbladder is unremarkable. No biliary dilatation. Spleen: No abnormality identified. Pancreas: Homogeneous enhancement of the pancreatic parenchyma. There are inflammatory changes surround the pancreatic head and uncinate process. No ductal dilatation. There are a few mildly prominent peripancreatic lymph nodes, likely reactive. Adrenals: No abnormality identified. Kidneys: No focal enhancing lesion or hydronephrosis. Vasculature: Normal caliber aorta with patent proximal branch vessels. There is no significant atherosclerotic calcification. The portal, splenic, superior mesenteric and renal veins appear to be patent. Mesentery/Peritoneum/ Lymph nodes: No free intraperitoneal air or fluid. No lymphadenopathy identified by CT size criteria. Pelvis: No mass or lymphadenopathy identified. GI tract: Evaluation of the enteric tract is limited without contrast. No evidence of bowel obstruction. The visualized appendix demonstrates normal caliber without CT evidence of localized inflammatory change. Moderate amount of stool within the right hemicolon. Body wall / Subcutaneous tissues: No acute abnormality identified. Musculoskeletal: No acute abnormality. IMPRESSION: Findings consistent with acute pancreatitis. See details. Consider follow-up to ensure resolution. Details and incidental findings as discussed. Normal [facility] Comprehensive Panelon 2017 Albumin 4.1 g/dL Normal 3.4-5.0 [facility] Comment on above: Performed By: #### L P14 ####[place] [address] Alkaline phosphatase (ALP) 111 U/L Normal 46-116 [facility] Comment on above: Performed By: #### L P14 ####[place] [address] ALT-SGPT Blood 53 U/L Normal 14-63 [facility] Comment on above: Performed By: #### L P14 ####[place] [address] Anion gap 12 mmol/L Normal 8-20 [facility] Comment on above: Performed By: #### L P14 ####[place] [address] AST-SGOT Blood 33 U/L Normal 15-37 [facility] Comment on above: Performed By: #### L P14 ####[place] [address] Bilirubin Ql (U) 0.6 mg/dL Normal 0.2-1.0 [facility] Comment on above: Performed By: #### L P14 ####[facility] [place], [place] [address] BUN (urea nitrogen) 16 mg/dL Normal 7-25 [facility] Comment on above: Performed By: #### L P14 ####[facility] [place] [address] BUN/Creatinine Ratio 13 mg/mg Normal 10-20 [facility] Comment on above: Performed By: #### L P14 ####[place] [address] Calcium 10.0 mg/dL Normal 8.5-10.1 [facility] Comment on above: Performed By: #### L P14 ####[place] [address] Chloride 102 mmol/L Normal 98-107 [facility] Comment on above: Performed By: #### L P14 ####[place] [address] CO2 27 mmol/L Normal 21-32 [facility] Comment on above: Performed By: #### L P14 ####[place] [address] Creatinine 1.26 mg/dL High 0.67-1.17 [facility] Comment on above: Performed By: #### L P14 ####[place] [address] Glucose mass conc 105 mg/dL High 70-99 [facility] Comment on above: Performed By: #### L P14 ####[place] [address] Potassium molar conc 4.0 mmol/L Normal 3.5-5.1 [facility] Comment on above: Performed By: #### L P14 ####[place] [address] Protein 8.2 g/dL Normal 6.4-8.2 [facility] Comment on above: Performed By: #### L P14 ####[place] [address] Sodium 137 mmol/L Normal 136-145 [facility] Comment on above: Performed By: #### L P14 ####[place] [address] Hemogram/Diffon 10-27-2017 Abs. Baso 0.04 thou/cmm Normal 0.00-0.08 [facility] Comment on above: Performed By: #### L CBCD ####[place] [address] Abs. Mcminn 1.38 thou/cmm High 0.20-1.00 [facility] Comment on above: Performed By: #### L CBCD ####[place] [address] Abs. Neut 9.83 thou/cmm High 3.00-5.67 [facility] Comment on above: Performed By: #### L CBCD ####[place] [address] Basophils/100 WBC Auto (Bld) 0.3 % Normal [facility] Comment on above: Performed By: #### L CBCD ####[place] [address] Eosinophils 0.14 thou/cmm Normal 0.00-0.41 [facility] Comment on above: Performed By: #### L CBCD ####[place] [address] Eosinophils/100 leukocytes 1.0 % Normal [facility] Comment on above: Performed By: #### L CBCD ####[place] [address] Erythrocyte distribution width Auto Ratio (RBC) 12.9 % Normal 11.5-15.9 [facility] Comment on above: Performed By: #### L CBCD ####[address] [address] Erythrocytes (RBC) 5.25 mil/cmm Normal 4.60-6.20 [facility] Comment on above: Performed By: #### L CBCD ####[address] [address] Hematocrit (HCT) 43.7 % Normal 42.0-52.0 [facility] Comment on above: Performed By: #### L CBCD ####[address] [address] Hemoglobin mass conc (Bld) 15.2 g/dL Normal 14.0-18.0 [facility] Comment on above: Performed By: #### L CBCD ####[address] [address] Lymphocytes 2.71 thou/cmm Normal 1.50-3.65 [facility] Comment on above: Performed By: #### L CBCD ####[address] [address] Lymphocytes/100 leukocytes 19.2 % Normal [facility] Comment on above: Performed By: #### L CBCD ####[address] [address] MCH 29.0 pg Normal 27.0-31.0 [facility] Comment on above: Performed By: #### L CBCD ####[address] [address] MCHC mass conc (RBC) 34.8 % Normal 32.0-36.0 [facility] Comment on above: Performed By: #### L CBCD ####[address] [address] MCV 83.2 fL Normal 80.0-94.0 [facility] Comment on above: Performed By: #### L CBCD ####[address] [address] Monocytes/100 leukocytes 9.8 % Normal [facility] Comment on above: Performed By: #### L CBCD ####[address] [address] Platelet mean volume (PMV) 9.2 fL Normal 7.1-10.5 [facility] Comment on above: Performed By: #### L CBCD ####[address] [place] [address] Platelets 366 thou/cmm Normal 150-400 [facility] Comment on above: Performed By: #### L CBCD ####[address] [address] Seg Neutrophil 69.7 % Normal [facility] Comment on above: Performed By: #### L CBCD ####[address] [address] WBC (Leukocytes) 14.1 thou/cmm High 4.8-10.8 [facility] Comment on above: Performed By: #### L CBCD ####[address] [address] Lactic acidon 10-27-2017 Lactate 0.8 mmol/L Normal 0.4-2.0 [facility] Comment on above: Performed By: #### L LA ####[address] [address] Lipase Bloodon 10-27-2017 Lipase Blood 4063 U/L High 73-393 [facility] Comment on above: Performed By: #### L LIP ####[address] [address] MDRD eGFRon 10-27-2017 eGFR (non-black) mL/min/{1.73_m2} Normal >60mL/m in/1.7 3m2 [facility] Comment on above: Result Comment: If t he patient is , multiply the result by 1.210. Performed By: #### L GFR ####[address] [address] Troponin Ion 10-27-2017 Troponin I.cardiac mass conc ng/mL Normal <=0.07 [facility] Comment on above: Performed By: #### L TRP ####[address] [address] Vital Signs Date Time Vital Sign Value Performing Clinician Evelyn multani 10-24-2024 08:59-0400 Body mass index (BMI) [Ratio] 31.33 kg/m2 Chris Negrete MD Work Phone: [facility] 10-24-2024 08:59-0400 Body weight 104.78 kg Chris Negrete MD Work Phone: [facility] 10-24-2024 08:59-0400 Diastolic blood pressure 65 mm[Hg] Chris Negrete MD Work Phone: [facility] 10-24-2024 08:59-0400 Heart rate 76 /min Chris Negrete MD Work Phone: [facility] 10-24-2024 08:59-0400 Systolic blood pressure 111 mm[Hg] Chris Negrete MD Work Phone: [facility] 09-09-2024 09:26-0500 Body temperature 97.1 [degF] Dr. Shelly Romero MD Work Phone: [facility] 09-09-2024 09:26-0500 Diastolic blood pressure 71 mm[Hg] Dr. Shelly Romero MD Work Phone: [facility] 09-09-2024 09:26-0500 Heart rate 75 /min Dr. Shelly Romero MD Work Phone: [facility] 09-09-2024 09:26-0500 Respiratory rate 16 /min Dr. Shelly Romero MD Work Phone: [facility] 09-09-2024 09:26-0500 SaO2% (BldA) [Mass fraction] 95 % Dr. Shelly Romero MD Work Phone: [facility] 09-09-2024 09:26-0500 Systolic blood pressure 110 mm[Hg] Dr. Shelly Romero MD Work Phone: [facility] 09-09-2024 07:45-0500 Body height 182.[address] Shelly Romero MD Work Phone: [facility] 09-09-2024 07:45-0500 Body mass index (BMI) [Ratio] 31.4 kg/m2 Dr. Shelly Romero MD Work Phone: [facility] 09-09-2024 07:45-0500 Body weight 105.[address] Shelly Romero MD Work Phone: [facility] 08-28-2024 10:18-0500 Body mass index (BMI) [Ratio] 31.7 kg/m2 Dr. Shelly Romero MD Work Phone: [facility] 08-28-2024 10:18-0500 Body weight 106.[address] Shelly Romero MD Work Phone: [facility] 08-28-2024 10:18-0500 Diastolic blood pressure 72 mm[Hg] Dr. Shelly Romero MD Work Phone: [facility] 08-28-2024 10:18-0500 Respiratory rate 16 /min Dr. Shelly Romero MD Work Phone: [facility] 08-28-2024 10:18-0500 Systolic blood pressure 122 mm[Hg] Dr. Shelly Romero MD Work Phone: [facility] Encounters Encounter Date Encounter Type Care Provider Facility Start: 05-15-2025 ambulatory Shelly Rivas lity:[facility] Start: 11-10-2024 End: 11-10-[address] Shelly Romero MD Work Phone: [facility] Work Phone: Start: 11-10-2024 End: 11-10-[address] Enrique Chavez MD -Laboratory Work Phone: Start: 11-10-2024 End: 11-10-2024 ambulatory Enrique Chavez Facility:[facility] Start: 11-04-2024 End: 11-04-[address] Shelly Romero MD Work Phone: [facility] Work Phone: Start: 11-04-2024 End: 11-04-2024 Patient encounter procedure [facility] Provider [facility] Start: 11-04-2024 End: 11-04-2024 ambulatory Shelly Romero Facility:[facility] Start: 10-24-2024 End: 10-24-2024 Patient encounter procedure Chris Negrete MD Work Phone: [facility] Comment on above: Anal fistula (Primar y Dx); Prolapsed hemorrhoids; Anal condyloma Start: 10-24-2024 End: 10-24-2024 ambulatory CHRIS NEGRETE Facility:[facility] Start: 10-20-2024 End: 10-20-[address] Shelly Romero MD Work Phone: [facility] Work Phone: Start: 10-20-2024 End: 10-20-[address] Shelly Romero MD -[facility] Start: 10-20-2024 End: 10-20-[facility] Start: 09-09-2024 ambulatory Mark Rivas lity:[facility] Start: 09-09-2024 Non-patient / Non-visit Dr. Mark Lutz MD -[facility] Start: 09-09-2024 End: 09-09-2024 Admission to same day surgery center Dr. Mark Lutz MD -Endoscopy Work Phone: Start: 09-09-2024 End: 09-09-2024 ambulatory Mark Lutz Facility:[facility] Start: 08-28-2024 End: 08-28-[address] Mark Lutz MD -[facility] Work Phone: Start: 08-28-2024 End: 08-28-20[facility] Start: 10-16-2023 End: 10-16-2023 ambulatory [facility] Work Phone: Start: 10-16-2023 End: 10-16-2023 Patient encounter procedure [facility] Start: 07-24-2023 End: 07-24-2023 ambulatory [facility] Work Phone: Start: 07-24-2023 End: 07-24-2023 Patient encounter procedure [facility] Work Phone: Start: 01-31-2023 End: 01-31-2023 ambulatory [facility] Work Phone: Start: 01-31-2023 End: 01-31-2023 Patient encounter procedure [facility], Shannon Farfan Start: 11-27-2017 [id number] Procedures Date Procedure Procedure Detail Performing Clinician Start: 11-10-2024 Prostate specific antigen measurement Dr. Shelly Romero MD Work Phone: Comment on above: This test was perfor med using the [employer] tPSA method. Measured values of a patient sample can vary depending on the testing procedure used. PSA values determined on patient samples by different testing procedures cannot be used interchangeably. If there is a change in PSA assays while monitoring therapy, sequential testing should be performed to confirm baseline values. Start: 11-04-[address] of liver Dr. Shelly Romero MD Work Phone: Start: 10-21-2024 Hepatitis A virus antibody, IgM type Dr. Shelly Romero MD Work Phone: Comment on above: A negative anti-HAV IgM result suggests no recent orcurrent HAV infection. Start: 10-21-2024 Hepatitis B core antibody measurement, IgM type Dr. Shelly Romero MD Work Phone: Start: 10-21-2024 Hepatitis C antibody measurement Dr. Shelly Romero MD Work Phone: Start: 04-13-2016 Colonoscopy Chris ayala MD Work Phone: Start: 02-03-2013 Lipid 1996 panel - Serum or Plasma Chris Negrete MD Work Phone: H/O: surgery S/P tonsillectom y and adenoidectomy Comment on above: 1971 Plan of Treatment Date Care Activity Detail Author Start: 04-15-2035 Urine microalbumin profile DTaP,Tdap,Td Vaccine (2 - Td or Tdap) [facility] Start: 10-24-2025 BP Controlled (<130/80) BP Controlled (<130/80) [facility] Start: 2024 Prostate specific antigen measurement Prostate Cancer Screening Discussion [facility] Start: 09-09-2024 Colonoscopy flx dx w/collj spec when pfrmd DIAGNOSTIC COLONOSCOPY [facility] Start: 09-09-2024 Patient discharge [facility] Start: 03-09-2024 Covid-19 Vaccine ( season) Covid-19 Vaccine ( season) [facility] Start: 03-09-2024 Influenza vaccination Influenza Vaccine (#1) [facility] Start: 04-13-2021 Screening for malignant neoplasm of colon [facility] Start: 10-26-2020 Diabetes Screening Diabetes Screening [facility] Start: 09-12-2019 Pneumococcal Vaccine: 50+ (1 of 1 - PCV) Pneumococcal Vaccine: 50+ (1 of 1 - PCV) [facility] Start: 02-03-2018 Lipid panel Lipid Screening [facility] Start: 02-03-2018 Prostate specific antigen measurement Prostate Cancer Screening Discussion [facility] Start: 2014 Screening for malignant neoplasm of colon [facility] Start: 1988 Hepatitis B Vaccine (1 of 3 - 19+ 3-dose series) Hepatitis B Vaccine (1 of 3 - 19+ 3-dose series) [facility] Start: 09-12-1987 Annual PCP Team Chronic Disease Visit Annual PCP Team Chronic Disease Visit [facility] Start: 09-12-1987 Anxiety Screening Anxiety Screening [facility] Start: 09-12-1987 Depression Screening Depression Screening [facility] Start: 09-12-1987 Hepatitis C screening Hepatitis C Screening [facility] Start: 09-12-1987 HIV screening HIV Screening [facility] Gamma glutamyl transferase measurement [facility] Hepatitis A virus Ig M Ab [Presence] in Serum [facility] Hepatitis B core antibody measurement, IgM type [facility] Hepatitis B surface antigen measurement [facility] Hepatitis C antibody measurement [facility] Patient referral [facility] Work Phone: Immunizations Immunization Date Immunization Notes Care Provider Fa ciliidalia 06-12-2019 influenza virus vaccine, unspecified formulation Chris Negrete MD Work Phone: [facility] 04-08-2017 Influenza virus vaccine [facility] Payers Date Payer Category Payer Self-pay [id number] 2019 Private Health Insurance MMO [employer] PPO [id number] 2016 Unknown [id number] Unknown [id number] Unknown [id number] Unknown [id number] Unknown [id number] Unknown [id number] Unknown [id number] Unknown [id number] Social History Date Type Detail Facility Start: 10-05-2020 End: 10-05-2020 Tobacco smoking status NHIS Unknown if ever smoked [facility] Start: 10-27-[address] [facility] Start: 10-29-[address] [facility] Start: 1970 Sex Assigned At Male [facility] Start: 09-03-2024 Tobacco smoking stat us MAIS Smokes tobacco daily (finding) [facility] Start: 09-09-[address] [facility] Start: 10-23-2024 Sex Male (finding) [facility] Start: 10-23-2017 Tobacco smoking stat us NHIS Ex-smoker [facility] End: 12-11-2012 History of tobacco use Current smoker [facility] End: 12-11-2012 History of tobacco use Cigarette Smoker [facility] Start: 10-23-2017 Tobacco use and exposure Smokeless tobacco non-user [facility] Start: 10-24-2024 Alcoholic beverage intake Current drinker of alcohol (finding) [facility] Start: 10-26-2017 End: 10-24-2024 History of Social function [facility] Start: 10-26-2017 End: 10-24-2024 Tobacco use panel [facility] Retired 08/07/2019 P HQ Score 0 [facility] Start: 1970 [facility] assigned [facility] Goals Date Patient Goal Desired Activity /State Mental Status Date Assessment Result Facility 09-09-2024 Cognitive function Level Of Consciousness Awake [facility] Work Phone: 09-09-2024 Cognitive function Voice/Name [facility] Work Phone: Radiology Diagnostic study note 11-04-2024 Note Date & Type Note Facility 11-04-2024 Radiology Diagnostic study note [facility] Imaging Services [address] [place] [address] ABD Limited w/ Elastography MR#: [id number] Acct: [id number] Name: COSTA RAMSEY Rep #: [id number] : 1970 M 54 From: Jessica Thomas MD PCP: Dr. Shelly Romero MD Status: REG CLI Study:ABD Limited w/ Elastography Date of Exa m: 11/04/24 Exam# [id number] Ordering Dr: Jackelyn Romero MD PROCEDURE: ABD LIMITED W/ ELASTOGRAPHY, 11/04/2024 REASON FOR EXAM: FATTY LIVWER, ELEVATED LFT COMPARISON: None TECHNIQUE: Grayscale and color Doppler imaging of the right upper quadrant was performed. Elastography was performed for non-invasive assessment of liver tissue stiffness utilizing a Emulate S-shear wave imaging unit. FINDINGS: Liver: Borderline minimally echogenic. 19.5 cm in length. Gallbladder: Underdistended and suboptimally evaluated. No definite stones, sludge, significant wall thickening or pericholecystic fluid. Reportedly, sonographic Moise's was negative. Biliary tree: Unremarkable. CBD measures 3 mm. Pancreas: Partially obscured by shadowing bowel gas, grossly unremarkable as visualized. Right kidney: Unremarkable. 12.4 cm in length. Other: No visualized free fluid. Hepatic elastography: Number of measurements: 15 measurements across 3 regions, 5 measurements per region. US probe: CA1-7A. EQI median: 6.1 kPa EQI median velocity: 1.4 m/s IQR/Med: 2.7-21.2% (kPa) and 1.5-11.2% (m/s). If the IQR/Med is IQR/median >30% (for kPa) or >15% in m/s, the variance in the measurements is a large and the accuracy of the measurement may be in question. US/ABD Limited w/ Elastography IMPRESSION: 1. Borderline hepatomegaly and appearance of the hepatic parenchyma which can beseen in chronic liver disease such as hepatic steatosis. Correlate with clinical and laboratory evaluation. 2. Liver stiffness is 6.1 kPa. Per the below 2020 SRU criteria, this rules out compensated advanced chronic liver disease in the absence of other known clinical signs. If there are known clinical signs, further testing may be needed for confirmation. 3. Additional description as above. Assessment is per the Update to the SRU Liver Elastography Consensus Statement (2020) Note that the above assessment of liver fibrosis is vendor-neutral and intended for use in fibrosis related to viral etiologies and non-alcoholic fatty-liver disease (NAFLD); in causes other than viral hepatitis and NAFLD, the cutoff values are currently not well established. In some patients with NAFLD, the cutoff values for cACLD may be lower (7-9 kPa). Note also that in the setting of elevated LFTs, nonfasting or vascular congestion, the stage of lifer fibrosis may be overestimated. Previous SRU reference values: <1.37 m/s (5.7kPa): No to mild fibrosis 1.37 m/s - 2.2 m/s: Moderate to severe fibrosis >2.2 m/s (15kPa): Significant fibrosis / cirrhosis Reading Location: [id number] CC: Dr. Shelly Romero MD ~ Transactional Attorney: Signed [facility] Progress note 10-24-2024 Note Date & Type Note Facility 10-24-2024 Note HNO ID: [id number] Author: CHRIS NEGRETE MD Service: ? Author Type: Physician Type: Progress Notes Filed: 10/24/2024 09:37 Note Text: Chris Negrete M.D. Colon AND Rectal Surgery [address] [facility], [address] [place] [address] ANGE Ramsey is a 54 year old White male with anal fistula, hemorrhoid HPI The patient was referred by Dr Mark Lutz for my consultation regarding perianal fistula and hemorrhoids. My final recommendations will be communicated back to the requesting physician by way of shared Medical record or letter to requesting physician via electronic or [place] mail. The patient is a pleasant 54-year-old male who has had perianal issues going back to 2009 when he had an abscess. For this he was evaluated with his primary care physician and they prescribed antibiotics and asked him to do warm compresses. They did not drain at the time but it did spontaneously drain shortly after. Ever since this he has had a small intermittent amount of drainage, but noting that for the last few years this is slowly worsened. Currently he has to clean up a small amount of drainage 3-4 times a day. He finds this fairly bothersome. He does not wear a pad. He denies issues with fecal incontinence. He had a recent colonoscopy with Dr. Lutz with no major findings He does have a history of Doppler guided hemorrhoid artery ligation in the past and notes that several of the hemorrhoids did improve between this and some dietary changes but he has 1 anterior hemorrhoid that is still bothersome Review of Systems Constitutional: Negative for chills, fever and weight loss. HENT: Negative for congestion, hearing loss and sore throat. Eyes: Negative for blurred vision. Respiratory: Negative for cough, shortness of breath, wheezing and stridor. Cardiovascular: Negative for chest pain and palpitations. Gastrointestinal: Negative for abdominal pain, blood in stool, constipation, diarrhea, heartburn, melena, nausea and vomiting. Genitourinary: Negative for dysuria, frequency and urgency. Musculoskeletal: Negative for back pain, joint pain and neck pain. Skin: Negative for itching and rash. Neurological: Negative for tingling and headaches. Endo/Heme/Allergies: Negative for environmental allergies. Does not bruise/bleed easily. Psychiatric/Behavioral: Negative for depression. The patient is not nervous/anxious. PAST MEDICAL HISTORY Diagnosis Date Abnormal liver enzymes 2012 NITESH (acute kidney injury) Dry eyes Environmental and seasonal allergies GERD with esophagitis Hemorrhoids History of shingles HTN (hypertension) Hypercholesterolemia Pancreatitis (HCC) Sleep apnea Vitamin D deficiency PAST SURGICAL HISTORY Procedure Laterality Date COLONOSCOPY 04/13/2016 normal colon COLONOSCOPY SCREENING EGD 12/05/2017 normal scope, biopsy consistent with reflux disease HEMORRHOID SURGERY HX 2011 REMOVE TONSIL AND ADENOI UNDER AGE 11 Social History Tobacco Use Smoking status: Former Current packs/day: 0.00 Types: Cigarettes Quit date: 12/11/2012 Years since quittin.8 Smokeless tobacco: Never Vaping Use Vaping status: current everyday user Substances: Nicotine Devices: Disposable Substance Use Topics Alcohol use: Yes Drug use: Never FAMILY HISTORY Problem Relation Age of Onset Cataract Father Hypertension Father Cataract Mother Hypertension Mother Diabetes Mother The ROS, medical, surgical, family, and social history were reviewed by Chris Negrete MD ALLERGIES Allergen Reactions Seasonal Allergies Unknown Current Outpatient Medications Medication Sig multivit-minerals/FA/lycopene (ONE-A-DAY MEN'S ORAL) Take by mouth. CIALIS 5 mg tablet fenofibrate nanocrystallized (TRICOR) 145 mg tablet metoprolol succinate ER (TOPROL XL) 100 mg Tb24 twice daily. potassium chloride ER (K-DUR, KLOR-CON) 20 mEq tablet fluticasone (FLONASE) 50 mcg/actuation nasal spray CETIRIZINE HCL/PSEUDOEPHEDRINE (ZYRTEC-D ORAL) Take by mouth. IBUPROFEN ORAL Take by mouth as needed. Omeprazole 40 mg capsule Take 1 capsule by mouth once daily. (Patient not taking: Reported on 10/24/2024) testosterone (ANDROGEL) 50 mg / 5 g (1%) glpk (Patient not taking: Reported on 10/24/2024) hydrocortisone (ANUSOL-HC) 2.5 % rectal cream (Patient not taking: Reported on 10/24/2024) lisinopril (ZESTRIL, PRINIVIL) 20 mg tablet (Patient not taking: Reported on 10/24/2024) No current facility-administered medications for this visit. OBJECTIVE BP 111/65 (BP Site: Left Arm, BP Position: Sitting, BP Cuff Size: Large Adult) Pulse 76 Wt 104.8 kg (231 lb) BMI 31.33 kg/m? BMI 31.33 kg/(m2) Physical Exam Constitutional: General: He is not in acute distress. Appearance: Normal appearance. He is not ill-appearing. Cardiovascular: Rate and Rhythm: Normal rate and regular rhythm. Heart sounds: (more content not included)... [facility] History of Present illness Narrative 10-24-2024 Chris Negrete MD - 10/24/2024 8:54 AM EDT Note Date & Type Note Facility 10-24-2024 History of Presen t illness Narrative Images from the original note were not included. Chris Negrete M.D. Colon & Rectal Surgery [address] [facility], [address] [place] [id number] SUBJECTIVE Costa Ramsey is a 54 year old White male with anal fistula, hemorrhoid HPI The patient was referred by Dr Mark Lutz for my consultation regarding perianal fistula and hemorrhoids. My final recommendations will be communicated back to the requesting physician by way of shared Medical record or letter to requesting physician via electronic or US mail. The patient is a pleasant 54-year-old male who has had perianal issues going back to 2009 when he had an abscess. For this he was evaluated with his primary care physician and they prescribed antibiotics and asked him to do warm compresses. They did not drain at the time but it did spontaneously drain shortly after. Ever since this he has had a small intermittent amount of drainage, but noting that for the last few years this is slowly worsened. Currently he has to clean up a small amount of drainage 3-4 times a day. He finds this fairly bothersome. He does not wear a pad. He denies issues with fecal incontinence. He had a recent colonoscopy with Dr. Lutz with no major findings He does have a history of Doppler guided hemorrhoid artery ligation in the past and notes that several of the hemorrhoids did improve between this and some dietary changes but he has 1 anterior hemorrhoid that is still bothersome Review of Systems Constitutional: Negative for chills, fever and weight loss. HENT: Negative for congestion, hearing loss and sore throat. Eyes: Negative for blurred vision. Respiratory: Negative for cough, shortness of breath, wheezing and stridor. Cardiovascular: Negative for chest pain and palpitations. Gastrointestinal: Negative for abdominal pain, blood in stool, constipation, diarrhea, heartburn, melena, nausea and vomiting. Genitourinary: Negative for dysuria, frequency and urgency. Musculoskeletal: Negative for back pain, joint pain and neck pain. Skin: Negative for itching and rash. Neurological: Negative for tingling and headaches. Endo/Heme/Allergies: Negative for environmental allergies. Does not bruise/bleed easily. Psychiatric/Behavioral: Negative for depression. The patient is not nervous/anxious. PAST MEDICAL HISTORY Diagnosis Date Abnormal liver enzymes 2012 NITESH (acute kidney injury) Dry eyes Environmental and seasonal allergies GERD with esophagitis Hemorrhoids History of shingles HTN (hypertension) Hypercholesterolemia Pancreatitis (HCC) Sleep apnea Vitamin D deficiency PAST SURGICAL HISTORY Procedure Laterality Date COLONOSCOPY 04/13/2016 normal colon COLONOSCOPY SCREENING EGD 12/05/2017 normal scope, biopsy consistent with reflux disease HEMORRHOID SURGERY HX 2012 REMOVE TONSIL AND ADENOI UNDER AGE 11 Social History Tobacco Use Smoking status: Former Current packs/day: 0.00 Types: Cigarettes Quit date: 12/11/2012 Years since quittin.8 Smokeless tobacco: Never Vaping Use Vaping status: current everyday user Substances: Nicotine Devices: Disposable Substance Use Topics Alcohol use: Yes Drug use: Never FAMILY HISTORY Problem Relation Age of Onset Cataract Father Hypertension Father Cataract Mother Hypertension Mother Diabetes Mother The ROS, medical, surgical, family, and social history were reviewed by Chris Negrete MD ALLERGIES Allergen Reactions Seasonal Allergies Unknown Current Outpatient Medications Medication Sig multivit-minerals/FA/lycopene (ONE-A-DAY MEN'S ORAL) Take by mouth. CIALIS 5 mg tablet fenofibrate nanocrystallized (TRICOR) 145 mg tablet metoprolol succinate ER (TOPROL XL) 100 mg Tb24 twice daily. potassium chloride ER (K-DUR, KLOR-CON) 20 mEq tablet fluticasone (FLONASE) 50 mcg/actuation nasal spray CETIRIZINE HCL/PSEUDOEPHEDRINE (ZYRTEC-D ORAL) Take by mouth. IBUPROFEN ORAL Take by mouth as needed. Omeprazole 40 mg capsule Take 1 capsule by mouth once daily. (Patient not taking: Reported on 10/24/2024) testosterone (ANDROGEL) 50 mg / 5 g (1%) glpk (Patient not taking: Reported on 10/24/2024) hydrocortisone (ANUSOL-HC) 2.5 % rectal cream (Patient not taking: Reported on 10/24/2024) lisinopril (ZESTRIL, PRINIVIL) 20 mg tablet (Patient not taking: Reported on 10/24/2024) No current facility-administered medications for this visit. OBJECTIVE BP 111/65 (BP Site: Left Arm, BP Position: Sitting, BP Cuff Size: Large Adult) Pulse 76 Wt 104.8 kg (231 lb) BMI 31.33 kg/m BMI 31.33 kg/(m^2) Physical Exam Constitutional: General: He is not in acute distress. Appearance: Normal appearance. He is not ill-appearing. Cardiovascular: Rate and Rhythm: Normal rate and regular rhythm. Heart sounds: No murmur heard. No friction rub. No gallop. Pulmonary: Effort: Pulmonary effort is normal. No respiratory distress. Breath sounds: Normal breath sounds. No wheezing or rales. Abdominal: General: There is no distension. Palpations: Abdomen is soft. There is no hepatomegaly. Tenderness: There is no abdominal tenderness. Musculoskeletal: General: No deformity. Normal range of motion. Skin: General: Skin is warm and dry. Findings: No rash. Neurological: Mental Status: He is alert and oriented to person, place, and time. Gait: Gait normal. Psychiatric: Mood and Affect: Mood normal. Judgment: Judgment normal. Perineum: On external examination, there is a large anterior hemorrhoid which is prolapsed, nontender, no overlying skin changes. There are also some scattered small condylomas about 1 to 2 mm, 5 of them. With anal effacement in the posterior position there is a skin bridge across the anal canal with a pretty large hole behind this the size to accommodate a finger and the anoderm in the posterior anal canal feels thickened, almost like there was a fissure in the past. HGB (g/dL) Date Value 10/26/2017 15.2 Hematocrit (%) Date Value 10/26/2017 43.7 WBC (thou/cmm) Date Value 10/26/2017 14.1 Platelet Count (thou/cmm) Date Value 10/26/2017 366 Creatinine Date Value Ref Range Status 10/26/2017 1.26 (H) 0.67 - 1.17 mg/dL Final AST Date Value Ref Range Status 10/26/2017 33 15 - 37 U/L Final ALT Date Value Ref Range Status 10/26/2017 53 14 - 63 U/L Final Bilirubin, Total (mg/dL) Date Value 10/26/2017 0.6 WBC (thou/cmm) Date Value 10/26/2017 14.1 (H) RBC (mil/cmm) Date Value 10/26/2017 5.25 %DIG,%DBS Plan ASSESSMENT/PLAN: 1. Anal fistula - ICD9: 565.1, ICD10: K60.30 (primary diagnosis) Currently there is a skin tag crossing the anal canal posteriorly, and this may have been a slow development from a fissure or a fistula over many years although it is a bit hard to understand. An exam under anesthesia will clarify this better. I think we would be removing the skin bridge and evaluating for any granulation tissue or persistent fistulous. He does not have any issues with fecal incontinence currently but is pretty concerned about this possibility and we would have to be careful with interventions if there is further fistula found. 2. Prolapsed hemorrhoids - ICD9: 455.8, ICD10: K64.8 We discussed the hemorrhoids and they are somewhat bothersome, not severely, but he would like these removed at the time of the above procedure 3. 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 I verify that I personally obtained Costa Ramsey's consent. Chris Negrete MD Dept of [facility] Follow up: Return for Surgery. Chris Negrete M.D. Please Note: This office note has been created using [employer], a speech recognition software program, and may contain errors including punctuation, grammar, spelling, gender, and inappropriate words or phrases that pertain to the sytem. documented in this encounter [facility] Clinical Note 09-09-2024 Note Date & Type Note Facility 09-09-2024 Note [facility] Medical Records Department [address] [place] [address] History Physical Exam 09/09/24 0828 MR#: [id number] Acct: [id number] Name: COSTA RAMSEY Rep #: [id number] : 1970 53 From: Mark Lutz MD PCP: Dr. Shelly Romero MD Status:[facility] Location: [place] [address] History and Physical Date of Admission: 09/09/24 Intake Chief Complaint: fistula Allergies No Known Allergies Allergy (Verified 08/28/24 10:19) Medications ???Medication ???Instructions ???Recorded ???Confirmed ???Type cetirizine 5 mg-pseudoephedrine ER 1 tab PO DAILY allergies 09/25/17 08/28/24 History 120 mg tablet,extended release,12hr (Zyrtec-D) potassium chloride 20 mEq 20 meq PO DAILY potassium 09/25/17 08/28/24 Histor y tablet,extended release replacement cholecalciferol (vitamin D3) 50 2,000 unit PO DAILY daily vitamin 09/26/17 5 History mcg (2,000 unit) capsule fenofibrate nanocrystallized 145 145 mg PO DAILY cholesterol 09/26/17 08/28/24 Hist ory mg tablet (Tricor) fluticasone propionate 50 1 spray intranasal PRN PRN 09/26/17 08/28/24 Histo ry mcg/actuation nasal Congestion spray,suspension (Flonase Allergy Relief) metoprolol succinate 100 mg 100 mg PO BID blood pressure 09/26/17 08/28/24 His tory tablet,extended release 24 hr tadalafil 5 mg tablet mg PO 10/05/20 08/28/24 History vitamins B1 B6 B12 tablet tab PO 08/28/24 08/28/24 History Assessment and Plan Assessment and Plan (1) Screen for colon cancer: Status: Acute (2) Anal fistula: Status: Acute Orders: Orders Colonoscopy Today Z12.11 - Encounter for screening for malignant neoplasm of colon Referrals Colon Rectal Surgery K60.30 - Anal fistula, unspecified 08/28/24 1048 Date Mark Lutz MD cc: Dr. 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 Is patient in pain?: No Allergies No Known Allergies Allergy (Verified 08/28/24 10:19) Medications ???Medication ???Instructions ???Recorded ???Confirmed ???Type cetirizine 5 mg-pseudoephedrine ER 1 tab PO DAILY allergies 09/25/17 08/28/24 History 120 mg tablet,extended release,12hr (Zyrtec-D) potassium chloride 20 mEq 20 meq PO DAILY potassium 09/25/17 08/28/24 Histor y tablet,extended release replacement cholecalciferol (vitamin D3) 50 2,000 unit PO DAILY daily vitamin 09/26/17 5 History mcg (2,000 unit) capsule fenofibrate nanocrystallized 145 145 mg PO DAILY cholesterol 09/26/17 08/28/24 Hist ory mg tablet (Tricor) fluticasone propionate 50 1 spray intranasal PRN PRN 09/26/17 08/28/24 Histo ry mcg/actuation nasal Congestion spray,suspension (Flonase Allergy Relief) metoprolol succinate 100 mg 100 mg PO BID blood pressure 09/26/17 08/28/24 His tory tablet,extended release 24 hr tadalafil 5 mg tablet mg PO 10/05/20 08/28/24 History vitamins B1 B6 B12 tablet tab PO 08/28/24 08/28/24 History Have you fallen in the past year?: No PFSH Medical History (Updated 08/28/24 @ 10:[address] Mark Lutz MD) Anal fistula Male hypogonadism Skin cancer prostate issues High triglycerides High cholesterol Frequent headaches Gastrointestinal problem GERD (gastroesophageal reflux disease) Arthritis Seasonal allergies Rectal pain Sleep apnea Hemorrhoids Hypertension Back problem Surgical History Hemorrhoid S/P tonsillectomy and adenoidectomy Family History Mother Diabetes Hypertension Cancer skinFather Heart disease Cancer Skin Multiple myeloma HypertensionOther Anxiety Arthritis Bowel disease Breast cancer CVA (cerebral vascular accident) Depression High cholesterol Hormone deficiency Liver disease Myocardial infarction Osteoporosis Thyroid disorder blood clots blood transfusion Social History Smoking Status: Former smoker second hand exposure: No alcohol intake: current alcohol intake frequency: holidays/special occasions only substance use type: does not use caffeine: Yes what type of physical activity do you participate in: other frequency: does not exercise seatbelt use: always HPI HPI HPI: Patient is a 53-year-old male here for screening colonoscopy and for his rectal fistula. The pat (more content not included)... [facility] Evaluation note 08-28-2024 Note Date & Type Note Facility 08-28-2024 Evaluation note Diagnosis Onset Date Resolution Anal fistula acute August 10:05am Screen for colon cancer acute August 28 10:05am [facility] Work Phone: Evaluation note Note Date & Type Note Facility Evaluation note No assessment information availa ble [facility] Work Phone: Evaluation note Note Date & Type Note Facility Evaluation note Diagnosis Anal fistula- Primary Prolapsed hemorrhoids Unspecified hemorrhoids with other complication Anal condyloma Condyloma acuminatum documented in this encounter [facility] Reason for referral (narrative) Note Date & Type Note Facility Reason for referral (narrative) No reason for referral information available [facility] Work Phone: Summary Purpose Family History No Family History Records Found Relationship Condition Age at Onset Recorded Date/T fatuma Not Specified Disorder of intestine Unknown Disorder of liver Unknown Osteoporosis Unknown High blood cholesterol Unknown Anxiety Unknown Arthritis Unknown Depression Unknown Estradiol deficiency Unknown Myocardial infarction Unknown Malignant neoplasm of breast Unknown Disorder of thyroid Unknown Cerebrovascular accident (CVA) Unknown Unknown mother Diabetes mellitus Unknown Hypertension Unknown Malignant neoplasm Unknown father Cardiac disease Unknown Multiple myeloma Unknown Advance Directives No Advanced Directives Records Found Advance Directive Response Recorded Date/ Time Living Will No March 27, 2019 2:46pm Power of Net Developer Contract No March 2:46pm Advance Directive Response Recorded Date/ Time Living Will No March 27, 2019 1:46pm Power of Net Developer Contract No March 1:46pm Advance Directive Response Recorded Date/ Time Living Will No September 03 11:03am Do you have a Healthcare Power of Net Developer Contract? No September 03, 2024 11:03am Chief Complaint and Reason for Visit Chief Complaint Admit Date SCOPE - HEMORRHOIDS/FISTULA August 10:05am Reason for Visit Admit Date Anal fistula August 28, 2024 10:05am Screen for colon cancer August 28 10:05am Chief Complaint Admit Date SCOPE - HEMORRHOIDS/FISTULA August 10:05am FATTY LIVER November 04, 2024 9:0 7am Additional Source Comments (unrecognized sect ion and content) No Status Records FoundNo Status Records FoundNo Status Records FoundNo Status Records Found INFORMATION SOURCE (unrecogn ized section and content) DATE CREATED AUTHOR 12/26/2017 [facility] DATE CREATED AUTHOR AUTHOR'S ORGANIZ ATION 12/27/2017 [facility] DATE CREATED AUTHOR AUTHOR'S ORGANIZ ATION 11/05/2024 [facility] DATE CREATED AUTHOR AUTHOR'S ORGANIZ ATION 05/13/2025 [facility] Teams (unrecognized sec tion and content) Team Status: Active Member Role Status Dates Dr. Scooter Romero MD Family Provider Active Dr. Scooter Romero MD Primary Care Provider Activ e Team Status: Inactive Member Role Status Dates Dr. Scooter Romero MD Primary Care Provider, Atte nding Provider Active Team Status: Inactive Member Role Status Dates Dr. Scooter Romero MD Primary Care Provider Activ e Ariana Nguyening Attending Provider, Referring Provide r Active Team Status: Active Member Role Status Dates Dr. Shelly Romero MD Family Provider Active Dr. Shelly Romero MD Primary Care Provider Acti ve Team Status: Inactive Member Role Status Dates Dr. Shelly Romero MD Primary Care Provider Acti ve [place] Attending Provider, Referring Provide r Active Team Status: Inactive Member Role Status Dates Dr. Shelly Romero MD Primary Care Provider, Att ending Provider Active Team Status: Active Member Role Status Dates Dr. Shelly Romero MD Primary Care Provider Acti ve Team Status: Inactive Member Role Status Dates Dr. Shelly Romero MD Primary Care Provider Acti ve Start: August 28, 2024 End: August 28, 2024 Dr. Shelly Romero MD Referring Provider Active Start: August 28, 2024 End: August 28, 2024 Dr. Mark Lutz MD Attending Provider Active Start: August 28, 2024 End: August 28, 2024 Team Status: Inactive Member Role Status Dates Dr. Shelly Romero MD Primary Care Provider Acti ve Start: September 09, 2024 End: September 09, 2024 Dr. Shelly Romero MD Referring Provider Active Start: September 09, 2024 End: September 09, 2024 Dr. Mark Lutz MD Attending Provider Active Start: September 09, 2024 End: September 09, 2024 Team Status: Active Member Role Status Dates Dr. Shelly Romero MD Primary Care Provider Acti ve Start: September 09, 2024 Dr. Shelly Romero MD Referring Provider Active Start: September 09, 2024 Dr. Mark Lutz MD Attending Provider Active Start: September 09, 2024 Dr. Mark Lutz MD Other Provider Active Start: September 09, 2024 Team Status: Inactive Member Role Status Dates Dr. Shelly Romero MD Primary Care Provider Acti ve Start: October 20, 2024 End: October 20, 2024 Dr. Shelly Romero MD Attending Provider Active Start: October 20, 2024 End: October 20, 2024 Dr. 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 Shelly Romero MD Primary Care Provider Acti ve Start: November 04, 2024 End: November 04, 2024 Dr. Shelly Romero MD Attending Provider Active Start: November 04, 2024 End: November 04, 2024 Dr. Shelly Romero MD Referring Provider Active Start: November 04, 2024 End: November 04, 2024 Team Status: Active Member Role Status Dates Dr. Shelly Romero MD Primary Care Provider Acti ve Start: November 10, 2024 Dr. Enrique Chavez MD Attending Provider Active Start: November 10, 2024 Dr. Enrique Chavez MD Referring Provider Active Start: November 10, 2024 Team Status: Inactive Member Role Status Dates Dr. Shelly Romero MD Primary Care Provider Acti ve Start: November 10, 2024 End: November 10, 2024 Dr. Enrique Chavez MD Attending Provider Active Start: November 10, 2024 End: November 10, 2024 Dr. Enrique Chavez MD Referring Provider Active Start: November 10, 2024 End: November 10, 2024 Goals (unrecognized section and content) Goals may be documented in a n alternate sectionGoals may be documented in an alternate sectionGoals may be documented in an alternate section Source Comments (unrecognize d section and content) In the event this informatio n is protected by the Federal Confidentiality of Alcohol and Drug Abuse Patient Records regulations: The Federal rules restrict any use of the information to criminally investigate or prosecute any alcohol or drug abuse patient.[facility] the event this information is protected by the Federal Confidentiality of Alcohol and Drug Abuse Patient Records regulations: The Federal rules restrict any use of the information to criminally investigate or prosecute any alcohol or drug abuse patient.[facility] Reason for Visit (unrecogniz ed section and content) Reason Comments New Patient Anal fisula FOR RECORDS PERTAINING TO PATIENTS WHO ARE [...] BE BASED ON THE PRIMARY CLINICAL RECORDS. [facility] [employer] [facility]. provides no warranty or guarantee of the accuracy or completeness of information in this document.
== END | disposition home or self-care (01) ==
LOC: CT 15:53
PROVIDERS: PCP Family Medicine; Referring Provider Family Medicine; Visit Provider Family Medicine
DX: R91.1 Solitary pulmonary nodule (principal)
CPT/HCPCS: 71250